=== PATIENT | female | born 1970 | race Caucasian/White ===

== ENCOUNTER 2016-08-29 17:57 | Inpatient (IN) | payer OTHER ==
[~2016-08-29] VITALS: Ht 157.5 cm; Wt 74.4 kg
[~2016-08-29 17:57] MED LIST: ALBU1AER INH; BACT800T5 PO; CHOL4 PO; DILA8TAB4 PO; ESOM1CAP6 PO; FAMO20TA2 PO; IPRAAER IN; LORA1TAB PO; METH10TA PO; MILKSUS5 PO; PROT40TA PO; ZOFR8TAB PO; [UNRECOGNIZED DRUG - CODE] PO
[2016-08-29 18:06] VITALS: BP 98/57; PULSE 82; RESP 16; TEMP 98.3; O2SAT 91
[2016-08-29 22:00] VITALS: BP 103/59; PULSE 56; RESP 14; O2SAT 94
[2016-08-29] MEDS ORDERED: SODIUM CHLOR 0.9% 1000 ML INJ 1,000 ML IV ONE (22:15)
--- NOTE | 2016-08-29 22:25 | PD ---
HPI Chief Complaint: Equipment Specialist Problem Time Seen by Provider: 22:02 Travel History International Travel<30 days: No Contact w/Intl Traveler<30days: No Traveled to known affect area: No History of Present Illness HPI The patient is a 46 year old female who presents to the [facility] emergency department with a history of reportedly having an infection of her GJ tube site that was first noted 2 weeks ago when the tube dislodged. She reports that she was treated with a 7 day course of Bactrim. She reports that she was told by hospice that it was up to her whether she had the feeding tube replaced. She reports that she was not sure what to do. She reports that now she has also been discharged from [facility] yesterday. The patient's pertinent past medical history is significant for severe gastroparesis with daily nausea vomiting, difficulty swallowing possibly related to her history of multiple sclerosis, history of cerebral palsy and spina bifida. The patient incidentally reports that she has had mild cough and congestion over the last 3- 4 days. She reports that she is able to tolerate some foods orally. She reports that she has mainly been getting her nutrition from drinking ensure shakes. The patient reports that at her baseline she usually vomits 3 times per day. She reports that today she has vomited twice. She reports that she last moved her bowels earlier today. She denies having any blood in her stool or black or tarry stools. She reports that the area of redness and pain around her previous GJ tube site has increased in size since completing her course of Bactrim approximately 4 days ago. Otherwise on review of systems, she denies any recent fevers, neck pain, chest pain, shortness of breath, diarrhea, urinary symptoms, or new neurologic symptoms. [facility] Past Medical History Narrative Medical The patient's past medical history is significant for multiple sclerosis, lupus , cerebral palsy, spina bifida, gastroparesis, history of bowel perforation, history of chronic pain, history of asthma/COPD, history of daily continued tobacco use of a half a pack per day, history of pancreatitis. The patient reports that she is currently residing with her sister. Asthma: Yes Autoimmune Disease: Yes (MS, Lupus ) COPD: Yes Gastrointestinal Disorders: Yes (Gastroparesis with G/J tube placement ) Respiratory: Yes (ASTHMA, COPD) Pancreatitis: Yes ?: Not LMP: 07/30/16 : 4 Para: 4 Miscarriage: 0 Tubal Ligation: Yes Past Surgical History Narrative Surgical The patient's past surgical history is significant for a J-tube placement. The patient has a history of laparotomy related to bowel perforation. Abdominal Surgery: Yes (GASTRIC TUBE) Genitourinary Surgery: Yes (G/J tube) Other Surgery: Yes (Lap [place]ie; ) Social History Alcohol Use: No Tobacco Use: Yes Substance Use: Yes (Occ. THC) Allergies-Medications (Allergen,Severity, Reaction): Coded Allergies: Cefazolin (Verified Allergy, Severe, RASH, 08/29/16) Cipro (Verified Allergy, Severe, PANCREATITIS, 08/29/16) Interferon Beta 1a (Verified Allergy, Severe, ANAPHALACTIC, 08/29/16) Interferons (Verified Allergy, Severe, ANAPHALACTIC, 08/29/16) Latex (Verified Allergy, Severe, ANAPHALACTIC, 08/29/16) Nonsteroidal Anti-Inflammatory Agts (Verified Allergy, Severe, GI, 08/29/16 ) Penicillin (Verified Allergy, Severe, ANAPHALACTIC, 08/29/16) Theophylline (Verified Allergy, Severe, TACHYCARDIA, 08/29/16) Ultracet (Verified Allergy, Severe, GI, 08/29/16) Aspirin (Verified Allergy, Intermediate, RASH, 08/29/16) Gabapentin (Verified Allergy, Intermediate, HIVES, 08/29/16) Seafood (Verified Allergy, Intermediate, RASH, 08/29/16) Tramadol/Acetaminophen (Verified Allergy, Intermediate, LIVER ISSUE, ) Tylenol (Verified Allergy, Intermediate, LIVER, 08/29/16) Uncoded Allergies: COPAXONE (Allergy, Severe, ANAPHALACTIC, 07/26/15) Reported Meds & Prescriptions Reported Meds & Active Scripts Active Active Prescriptions or Reported Medications Unobtainable Review of Systems Except as stated in HPI: all other systems reviewed are Neg General / Constitutional: Positive: Chills, No: Fever Eyes: No: Visual changes HENT: No: Headaches Cardiovascular: No: Chest Pain or Discomfort Respiratory: Positive: Cough, No: Shortness of Breath Gastrointestinal: Positive: Nausea, Vomiting, Abdominal Pain, No: Changes in Bowel Habits, Indigestion, Loss of Appetite Genitourinary: No: Dysuria Musculoskeletal: No: Pain Skin: Positive Rash Neurologic: No: Weakness, Focal Abnormalities, Change in Mentation, Slurred Speech, Sensory Disturbance Psychiatric: No: Depression Endocrine: No: Polydipsia Hematologic/Lymphatic: No: Easy Bruising Physical Exam Narrative General: The patient is a well-developed well-nourished female in no acute distress. Head and Neck exam: Head is normocephalic atraumatic. Eyes: EOMI, pupils are equal round and reactive to light. Nose: Midline septum with pink mucous membranes Mouth: Dentition unremarkable. Moist mucus membranes. Posterior oropharynx is not erythematous. No tonsillar hypertrophy. Uvula midline. Airway patent. Neck: No palpable lymphadenopathy. No nuchal rigidity. No thyromegaly. Cardiovascular: Sinus bradycardia in the 50s without murmurs, gallops, or rubs. Lungs: Decreased breath sounds in bilateral bases, no wheezes, rhonchi, or crackles are audible. Abdomen: Soft, with tenderness on palpation are reportedly along the right and left upper quadrant of the abdomen. The patient has a stoma in the left upper quadrant consistent with her GJ tube that was previously in place. Surrounding this site is erythema, warmth, tenderness on palpation and edema. There is no fluctuance or crepitus. No guarding, rebound, or rigidity. Negative [place] sign. No tenderness on palpation of McBurney's point. Extremities: No clubbing, cyanosis, or edema. 2+ pulses in all 4 extremities. No calf tenderness on palpation. Back: No costovertebral angle tenderness to palpation. Neurologic Exam: Grossly nonfocal Skin Exam: No other rashes noted abdifatah noted. Data Data Last Documented VS Vital Signs Date Time Temp Pulse Resp B/P Pulse Ox O2 Delivery O2 Flow Rate FiO2 08/30/16 01:00 66 15 95 Room Air 08/30/16 00:00 108/56 08/29/16 18:06 98.3 Orders Electrocardiogram (08/29/16 22:05) Complete Blood Count With Diff (08/29/16 22:05) Comprehensive Metabolic Panel (08/29/16 22:05) Creatine Kinase (Cpk) (08/29/16 22:05) Ckmb (Isoenzyme) Profile (08/29/16 22:05) Troponin I (08/29/16 22:05) Prothrombin Time / Inr (Pt) (08/29/16 22:05) Act Partial Throm Time (Ptt) (08/29/16 22:05) Blood Culture (08/29/16 22:05) C-Reactive Protein (Crp) (08/29/16 22:05) Lipase (08/29/16 22:05) Urinalysis - C+S If Indicated (08/29/16 22:05) Magnesium (Mg) (08/29/16 22:05) Chest, Single Ap (08/29/16 22:05) Iv Access Insert/Monitor (08/29/16 22:05) Ecg Monitoring (08/29/16 22:05) Oximetry (08/29/16 22:05) Ed Urine Pregnancytest Poc (08/29/16 22:05) Lactic Acid Sepsis Protocol (08/29/16 22:05) Sodium Chlor 0.9% 1000 Ml Inj (Ns 1000 M (08/29/16 22:15) Vancomycin Inj (Vancomycin Inj) (08/29/16 23:23) Aztreonam Inj (Azactam Inj) (08/29/16 23:23) Metronidazole 500 Mg Inj (Flagyl 500 Mg (08/29/16 23:23) Sodium Chlorid 0.9% 500 Ml Inj (Ns 500 M (08/29/16 23:30) Ondansetron Inj (Zofran Inj) (08/29/16 23:30) Ct Abd/Pel W Iv Contrast(Rout) (08/30/16 ) Iohexol 350 Inj (Omnipaque 350 Inj) (08/30/16 00:31) Admit Order (Ed Use Only) (08/30/16 01:18) Labs Laboratory Tests Test 08/29/16 22:54 White Blood Count 7.5 TH/MM3 Red Blood Count 5.31 MIL/MM3 Hemoglobin 16.3 GM/DL Hematocrit 46.9 % Mean Corpuscular Volume 88.3 FL Mean Corpuscular Hemoglobin 30.7 PG Mean Corpuscular Hemoglobin 34.8 % Concent Red Cell Distribution Width 13.6 % Platelet Count 230 TH/MM3 Mean Platelet Volume 9.1 FL Neutrophils (%) (Auto) 47.8 % Lymphocytes (%) (Auto) 37.4 % Monocytes (%) (Auto) 6.4 % Eosinophils (%) (Auto) 7.3 % Basophils (%) (Auto) 1.1 % Neutrophils # (Auto) 3.6 TH/MM3 Lymphocytes # (Auto) 2.8 TH/MM3 Monocytes # (Auto) 0.5 TH/MM3 Eosinophils # (Auto) 0.5 TH/MM3 Basophils # (Auto) 0.1 TH/MM3 CBC Comment DIFF FINAL Differential Comment Prothrombin Time 10.3 SEC Prothromb Time International 0.9 RATIO Ratio Activated Partial 30.1 SEC Thromboplast Time Sodium Level 142 MEQ/L Potassium Level 3.9 MEQ/L Chloride Level 104 MEQ/L Carbon Dioxide Level 28.7 MEQ/L Anion Gap 9 MEQ/L Blood Urea Nitrogen 12 MG/DL Creatinine 0.71 MG/DL Estimat Glomerular Filtration 89 ML/MIN Rate Random Glucose 87 MG/DL Lactic Acid Level 1.0 mmol/L Calcium Level 9.0 MG/DL Magnesium Level 2.1 MG/DL Total Bilirubin 0.2 MG/DL Aspartate Amino Transf 13 U/L (AST/SGOT) Alanine Aminotransferase 20 U/L (ALT/SGPT) Alkaline Phosphatase 115 U/L Total Creatine Kinase 47 U/L Troponin I LESS THAN 0.02 NG/ML C-Reactive Protein 1.23 MG/DL Total Protein 7.4 GM/DL Albumin 3.5 GM/DL Lipase 93 U/L MDM Medical Decision Making Medical Screen Exam Complete: Yes Emergency Medical Condition: Yes Interpretation(s) Last Impressions Abdomen/Pelvis CT 08/30/16 0000 Signed Impressions: Service Date/Time: Tuesday, August 30, 2016 00:28 - CONCLUSION: 1. Status post cholecystectomy. 2. No acute abdominal/pelvic pathology. 3. Nonspecific soft tissue changes in the midline anterior abdominal wall at the level of the previous feeding tube site. No loculated fluid collections. 4. Midline anterior abdominal wall hernia containing mesenteric fat. Ghassan Calderon MD Chest X-Ray 08/29/16 2204 Signed Impressions: Service Date/Time: Monday, August 29, 2016 22:27 - CONCLUSION: No acute disease. Good Dockery MD Differential Diagnosis Cellulitis, versus yeast dermatitis, versus sepsis related to failure of outpatient treatment of cellulitis, versus dehydration, versus electrolyte arrangements Narrative Course During the course of the patients emergency department visit, the patients history, examination, and differential diagnosis were reviewed with the patient. The patient had IV access obtained and blood work sent for analysis. The patient was placed on a chicken sexer with oximetry and blood pressure monitoring. An ECG was done on arrival. The patient's ECG reveals a sinus bradycardia with a sinus arrhythmia, heart rate of 48, QRS duration is 105 ms, QTc is 406 ms, no acute ST segment elevation or depression, T waves are inverted in V1. The patient was initially provided broad-spectrum antibiotic coverage for suspected sepsis related to failure of outpatient treatment of cellulitis involving the abdomen. The patient was given Azactam, vancomycin, and Flagyl. The patient was also started on normal saline 1 L IV fluid bolus which was repeated with a 500 mL bolus 1. The patient was given Zofran 4 mg IV for nausea. The patients laboratory studies were reviewed and remarkable for a white count of 7.5, hemoglobin 16.3, platelets 230 was 7.3 eosinophil. CMP is remarkable for an AST of 13, CPK 47, troponin I less than 0.02, C-reactive protein 1.23, lipase 93, PT PTT within normal limits. Lactic acid is 1.0, PT 10.3, PTT 30.1 Radiology studies were reviewed and remarkable for a chest x-ray that shows no acute cardiopulmonary disease. CT scan of the abdomen and pelvis shows status post cholecystectomy, no acute abdominal/pelvic pathology, nonspecific tissue changes in the midline anterior abdominal wall at the level of the previous feeding tube site. No loculated fluid collections. Midline anterior abdominal wall hernia containing mesenteric fat. The patients results were discussed with the patient, including the plan of care. I explained that further testing and/ or monitoring is indicated based on the patients history, examination, and/ or laboratory findings. Therefore, I recommended admission for additional evaluation. The patient expressed understanding and was agreeable with this plan. The patient was admitted to the hospital in stable condition and sent to a bed under the care of the [facility]. Physician Communication Physician Communication The patient's case was discussed with Dr. Nelson who did agree to admit the patient for further evaluation and treatment at this time. Diagnosis Primary Impression: Cellulitis Qualified Code: L03.818 - Cellulitis of other specified site Additional Impression: Failure of outpatient treatment Admitting Information Admitting Physician Requests: Admit Scripts Unable to Obtain Active Prescriptions or Reported Meds Radha Blackwell MD Aug 29, 2016 22:25
--- NOTE | 2016-08-29 22:41 | RADRPT ---
EXAM DATE/TIME: 08/29/2016 22:27 [facility] COMPARISON: No previous studies available for comparison. INDICATIONS : Chest pain. Cough. MEDICAL HISTORY : Pancreatitis. Lupus. SURGICAL HISTORY : None. ENCOUNTER: Initial ACUITY: 1 day PAIN SCORE: 7/10 LOCATION: Bilateral lower chest FINDINGS: A single view of the chest demonstrates the lungs to be symmetrically aerated without evidence of mas s, infiltrate or effusion. The cardiomediastinal contours are unremarkable. Osseous structures are intact. CONCLUSION: No acute disease. oGod Dockery MD on August 29, 2016 at 22:39 Board Certified Radiologist. This report was verified electronically.
[2016-08-29 22:59] VITALS: RESP 16; O2SAT 96
[2016-08-29 23:00] VITALS: BP 111/53; PULSE 58; RESP 15; O2SAT 97
[2016-08-29 23:18] LABS: AUTOMATED NEUTROPHIL # 3.6 TH/MM3 (1.8-7.7); BASOPHIL # 0.1 TH/MM3 (0-0.2); BASOPHIL % 1.1 % (0.0-2.0); EOSINOPHIL # 0.5 TH/MM3 (0-0.4); EOSINOPHIL % 7.3 % (0.0-4.0); HEMATOCRIT 46.9 % (35.0-46.0); HEMO FLAGS DIFF FINAL; LYMPH % 37.4 % (9.0-44.0); LYMPHOCYTE # 2.8 TH/MM3 (1.0-4.8); MEAN CELL VOLUME 88.3 FL (80.0-100.0); MEAN CORPUSCULAR HEMOGLOBIN 30.7 PG (27.0-34.0); MEAN CORPUSCULAR HGB CONC 34.8 % (32.0-36.0); MONO % 6.4 % (0.0-8.0); NEUT % 47.8 % (16.0-70.0); PLATELET COUNT 230 TH/MM3 (150-450); RED BLOOD COUNT 5.31 MIL/MM3 (4.00-5.30); RED CELL DISTRIBUTION WIDTH 13.6 % (11.6-17.2); WHITE BLOOD COUNT 7.5 TH/MM3 (4.0-11.0)
[2016-08-29] MEDS ORDERED: AZTREONAM INJ 2,000 MG in SODIUM CHLORIDE 0.9% INJ 100 ML IV STA (23:23)
[2016-08-29] MEDS ORDERED: VANCOMYCIN INJ 1,000 MG in SODIUM CHLOR 0.9% 250 ML INJ 250 ML IV STA (23:23)
[2016-08-29] MEDS ORDERED: metroNIDAZOLE 500 MG INJ 100 ML IV STA (23:23)
[2016-08-29] MEDS ORDERED: ONDANSETRON HCL 4 MG/2 ML VIAL IV PUSH ONE (23:30)
[2016-08-29] MEDS ORDERED: SODIUM CHLORID 0.9% 500 ML INJ 500 ML IV ONE (23:30)
[2016-08-29 23:36] LABS: ANION GAP 9 MEQ/L (5-15); BICARBONATE 28.7 MEQ/L (21.0-32.0); BLOOD UREA NITROGEN 12 MG/DL (7-18); CHLORIDE 104 MEQ/L (98-107); MAGNESIUM 2.1 MG/DL (1.5-2.5); POTASSIUM 3.9 MEQ/L (3.5-5.1); SODIUM (NA) 142 MEQ/L (136-145)
[2016-08-29 23:37] LABS: APTT (PATIENT) 30.1 SEC (24.3-30.1); INTERNATIONAL NORMALIZED RATIO 0.9 RATIO; PROTHROMBIN TIME - PATIENT 10.3 SEC (9.8-11.6)
[2016-08-29 23:39] LABS: ALKALINE PHOSPHATASE 115 U/L (45-117); ALT (GPT) 20 U/L (10-53); AST (GOT) 13 U/L (15-37); GLOMERULAR FILTRATION RATE 89 ML/MIN (>89); TOTAL BILIRUBIN ADULT 0.2 MG/DL (0.2-1.0)
[2016-08-29 23:50] LABS: CREATINE KINASE 47 U/L (26-192)
[2016-08-30] VITALS (8 sets, daily range): BP systolic 102–134; BP diastolic 56–72; PULSE 54–82; RESP 14–20; TEMP 97–97.8; O2SAT 94–97
[2016-08-30] MEDS ORDERED: IOHEXOL 350 MG/ML 10 ML VIAL (for RAD DIAG) IV ONE (00:31)
--- NOTE | 2016-08-30 00:49 | RADRPT ---
EXAM DATE/TIME: 08/30/2016 00:28 [facility] COMPARISON: No previous studies available for comparison. INDICATIONS : Pain and swelling at feeding tube site. IV CONTRAST: 88 cc Omnipaque 350 (iohexol) IV ORAL CONTRAST: Prescribed oral contrast ingested. RADIATION DOSE: 12.38 CTDIvol (mGy) MEDICAL HISTORY : Chronic obstructive pulmonary disease. Pancreatitis. Lupus. SURGICAL HISTORY : Tubal ligation. Gastric tube. ENCOUNTER: Initial ACUITY: 1 day PAIN SCALE: 7/10 LOCATION: Abdomen TECHNIQUE: Volumetric scanning of the abdomen and pelvis was performed. Using automated exposure control and ad justment of the mA and/or kV according to patient size, radiation dose was kept as low as reasonably achievable to obtain optimal diagnostic quality images. DICOM format image data is available electro nically for review and comparison. FINDINGS: LOWER LUNGS: The visualized lower lungs are clear. LIVER: Homogeneous density without lesion. There is no dilation of the biliary tree. No gallbladder, surgic ally removed.. SPLEEN: Normal size without lesion. PANCREAS: Within normal limits. KIDNEYS: Normal in size and shape. There is no mass, stone or hydronephrosis. ADRENAL GLANDS: Within normal limits. VASCULAR: There is no aortic aneurysm. BOWEL/MESENTERY: The stomach, small bowel, and colon demonstrate no acute abnormality. There is no free intraperitone al air or fluid. The appendix is unremarkable. There is stool throughout the colon. No inflammatory c hanges are demonstrated. Evidence of previous abdominal surgery. ABDOMINAL WALL: There appears to be midline anterior abdominal wall hernia in the upper abdomen containing mesenteric fat. There is nonspecific soft tissue changes in the anterior abdominal wall most likely related to feeding tube site. No focal or loculated fluid collections are seen in the abdominal wall. RETROPERITONEUM: There is no lymphadenopathy. BLADDER: No wall thickening or mass. REPRODUCTIVE: Within normal limits. INGUINAL: There is no lymphadenopathy or hernia. MUSCULOSKELETAL: Within normal limits for patient age. CONCLUSION: 1. Status post cholecystectomy. 2. No acute abdominal/pelvic pathology. 3. Nonspecific soft tissue changes in the midline anterior abdominal wall at the level of the previou s feeding tube site. No loculated fluid collections. 4. Midline anterior abdominal wall hernia containing mesenteric fat. Ghassan Calderon MD on August 30, 2016 at 0:41 Board Certified Radiologist. This report was verified electronically.
[2016-08-30] MEDS ORDERED: SODIUM CHLORIDE 0.9% FLUSH 10 ML FLUSH IV FLUSH PRN (01:45)
[2016-08-30] MEDS ORDERED: NALOXONE HCL 0.4 MG/ML AMP IV PRN (01:45)
[2016-08-30] MEDS ORDERED: Vancomycin Consult Pharmacy 1 EA OTHER SCH (01:45)
--- NOTE | 2016-08-30 08:53 | EKG ---
Date Performed: 08/29/2016 Time Performed: 23:11:31 PTAGE: 46 years EKG: SINUS BRADYCARDIA WITH SINUS ARRHYTHMIA BORDERLINE ECG NO PREVIOUS TRACING DOCTOR: Ray Patterson Interpretating Date/Time 08/30/2016 08:52:07
[2016-08-30] MEDS: SODIUM CHLORIDE 0.9% FLUSH 10 ML FLUSH IV FLUSH SCH ×2 (09:29→22:03)
--- NOTE | 2016-08-30 11:00 | HHI.HP ---
HPI Service [facility] Hospitalists Primary Care Physician Poncho Montero MD Admission Diagnosis Cellulitis failed outpatient management Diagnoses: Chief Complaint: Abdominal pain Infected G/J tube site Bilateral hip pain Travel History International Travel<30 Days: No Contact w/Intl Traveler <30 Da: No Traveled to Known Affected Are: No History of Present Illness Written by Tara Benson PA-C acting as scribe for Dr. Gonsalez on 08/30/16 at 10:41. This note was transcribed by scribe Tara Benson PA-C. I, Dr. Charlotte Gonsalez personally performed the history, physical exam, and medical decision making; and confirmed the accuracy of the information in the transcribed note. Authenticated by Dr. Charlotte Gonsalez on 08/30/16 at 10:41. This is a 46-year-old female with a past medical history of MS, lupus, cerebral palsy, spina bifida, severe gastroparesis status post G/J-tube placement, history of pancreatitis and history of bowel perforation who presents to [facility] ED with complaints of infection on her G/J-tube site ongoing for the past 2 weeks after the tube became dislodged. Patient states she was sent to the hospital by Dr. Montero. She completed a 7 day course of Bactrim 4 days ago. She was discharged from [facility] yesterday. At present, she is complaining of abdominal pain as well as bilateral hip pain. Patient states that she falls frequently at home and her last fall was a few days ago. She is able to ambulate some but primarily utilizes a wheelchair. She denies any fever or chills. She reports nausea. She denies any chest pain or shortness of breath. She reports that she is able to tolerate some foods orally as well as sips of water. She reports chronic daily nausea and vomiting as well as difficulty with swallowing. She follows with [facility]. She endorses normal bowel movements. She denies any black/bloody or tarry stools. She denies any urinary complaints. In the ED, CT scan of the abdomen and pelvis was obtained which was negative for any acute abdominal/pelvic pathology. There were some nonspecific soft tissue changes in the midline anterior abdominal wall the level of the previous feeding tube site but no loculated fluid collections were appreciated. She was also noted to have midline anterior abdominal wall hernia containing mesenteric fat. Review of Systems Except as stated in HPI: all other systems reviewed are Neg Past Family Social History Past Medical History MS Lupus History of cerebral palsy Spina bifida Severe gastroparesis status post G/J-tube placement Asthma COPD History of pancreatitis History of bowel perforation Past Surgical History G/J-tube placement Laparoscopic cholecystectomy Reported Medications Active Prescriptions or Reported Medications Unobtainable Allergies: Coded Allergies: Cefazolin (Verified Allergy, Severe, RASH, 08/29/16) Cipro (Verified Allergy, Severe, PANCREATITIS, 08/29/16) Interferon Beta 1a (Verified Allergy, Severe, ANAPHALACTIC, 08/29/16) Interferons (Verified Allergy, Severe, ANAPHALACTIC, 08/29/16) Latex (Verified Allergy, Severe, ANAPHALACTIC, 08/29/16) Nonsteroidal Anti-Inflammatory Agts (Verified Allergy, Severe, GI, 08/29/16 ) Penicillin (Verified Allergy, Severe, ANAPHALACTIC, 08/29/16) Theophylline (Verified Allergy, Severe, TACHYCARDIA, 08/29/16) Ultracet (Verified Allergy, Severe, GI, 08/29/16) Aspirin (Verified Allergy, Intermediate, RASH, 08/29/16) Gabapentin (Verified Allergy, Intermediate, HIVES, 08/29/16) Seafood (Verified Allergy, Intermediate, RASH, 08/29/16) Tramadol/Acetaminophen (Verified Allergy, Intermediate, LIVER ISSUE, ) Tylenol (Verified Allergy, Intermediate, LIVER, 08/29/16) Uncoded Allergies: COPAXONE (Allergy, Severe, ANAPHALACTIC, 07/26/15) Active Ordered Medications Current Medications Medications (Trade) Dose Ordered Sig/Yoly Route Start Time Stop Time Status Last Admin (NS Flush) 2 ml UNSCH PRN IV FLUSH 08/30/16 01:45 (NS Flush) 2 ml BID IV FLUSH 08/30/16 09:00 08/30/16 09:29 Naloxone HCl 0.4 mg 0.4 mg UNSCH PRN IV 08/30/16 01:45 Pharmacy Profile Note 0 ml @ 0 mls/hr UNSCH OTHER 08/30/16 01:45 (Azactam Inj/NS Inj) 100 ml @ 200 mls/hr Q12H IV 08/30/16 12:00 Oxycodone HCl 5 mg 5 mg Q8H PRN PO 08/30/16 04:30 08/30/16 04:51 (Vancomycin Inj/ NS 250 ml Inj) 262.5 ml @ 250 mls/hr Q12H IV 08/30/16 13:00 Miscellaneous Information SPECIFIC LAB TO BE DRAWN:VANCOMYCIN TROUGH DATE TO... ONCE ONCE .XX 08/31/16 12:45 08/31/16 12:46 (Pneumovax-23 Inj) 25 mcg ONCE ONCE IM 08/31/16 10:00 08/31/16 10:01 Family History Sister, brain tumor Social History She endorses history of tobacco use half pack per day since the age of 24. Patient denies any alcohol consumption. Patient reports marijuana use. Physical Exam Vital Signs Vital Signs Date Time Temp Pulse Resp B/P Pulse Ox O2 Delivery O2 Flow Rate FiO2 08/30/16 08:00 97.7 54 18 102/63 95 08/30/16 06:00 16 08/30/16 04:00 97.6 82 18 112/66 95 08/30/16 03:28 64 14 118/72 100 08/30/16 01:00 66 15 95 Room Air 08/30/16 00:00 64 14 108/56 96 Room Air 08/29/16 23:00 58 15 111/53 97 Room Air 08/29/16 22:59 16 96 Room Air 08/29/16 22:00 56 14 103/59 94 Room Air 08/29/16 21:50 Room Air 08/29/16 18:06 98.3 82 16 98/57 91 Room Air Physical Exam GENERAL: This is a well-nourished, well-developed patient, in no apparent distress. Awake and alert. SKIN: (+) Scattered slightly erythematous macular rash on bilateral upper extremities. Cool and dry. HEAD: Atraumatic. Normocephalic. No temporal or scalp tenderness. EYES: Pupils equal round and reactive. Extraocular motions intact. No scleral icterus. No injection or drainage. ENT: Nose without bleeding or purulent drainage.Throat without erythema, tonsillar hypertrophy or exudate. Uvula midline. Airway patent. NECK: Trachea midline. No lymphadenopathy. Supple, nontender, no meningeal signs. CARDIOVASCULAR: Regular rate and rhythm without murmurs, gallops, or rubs. RESPIRATORY: Clear to auscultation. Breath sounds equal bilaterally. No wheezes , rales, or rhonchi. GASTROINTESTINAL: Abdomen soft, nondistended. (+)tenderness to palpation RUQ. No hepato-splenomegaly, or palpable masses. No guarding. (+) Erythema surrounding the previous G/J-tube site. No purulence appreciated. MUSCULOSKELETAL: Extremities without clubbing, cyanosis, or edema. No joint tenderness, effusion, or edema noted. No calf tenderness. NEUROLOGICAL: Awake and alert. Grossly nonfocal. Normal speech. Laboratory Laboratory Tests Test 08/29/16 22:54 White Blood Count 7.5 Red Blood Count 5.31 Hemoglobin 16.3 Hematocrit 46.9 Mean Corpuscular Volume 88.3 Mean Corpuscular Hemoglobin 30.7 Mean Corpuscular Hemoglobin 34.8 Concent Red Cell Distribution Width 13.6 Platelet Count 230 Mean Platelet Volume 9.1 Neutrophils (%) (Auto) 47.8 Lymphocytes (%) (Auto) 37.4 Monocytes (%) (Auto) 6.4 Eosinophils (%) (Auto) 7.3 Basophils (%) (Auto) 1.1 Neutrophils # (Auto) 3.6 Lymphocytes # (Auto) 2.8 Monocytes # (Auto) 0.5 Eosinophils # (Auto) 0.5 Basophils # (Auto) 0.1 CBC Comment DIFF FINAL Differential Comment Prothrombin Time 10.3 Prothromb Time International 0.9 Ratio Activated Partial 30.1 Thromboplast Time Sodium Level 142 Potassium Level 3.9 Chloride Level 104 Carbon Dioxide Level 28.7 Anion Gap 9 Blood Urea Nitrogen 12 Creatinine 0.71 Estimat Glomerular Filtration 89 Rate Random Glucose 87 Lactic Acid Level 1.0 Calcium Level 9.0 Magnesium Level 2.1 Total Bilirubin 0.2 Aspartate Amino Transf 13 (AST/SGOT) Alanine Aminotransferase 20 (ALT/SGPT) Alkaline Phosphatase 115 Total Creatine Kinase 47 Troponin I LESS THAN 0.02 C-Reactive Protein 1.23 Total Protein 7.4 Albumin 3.5 Lipase 93 Date/Time Procedure Status Source Growth 08/29/16 23:05 Aerobic Blood Culture Received Blood Peripheral Pending 08/29/16 23:05 Anaerobic Blood Culture Received Blood Peripheral Pending Result Diagram: 08/29/16 2254 08/29/16 2254 Imaging Last Impressions Abdomen/Pelvis CT 08/30/16 0000 Signed Impressions: Service Date/Time: Tuesday, August 30, 2016 00:28 - CONCLUSION: 1. Status post cholecystectomy. 2. No acute abdominal/pelvic pathology. 3. Nonspecific soft tissue changes in the midline anterior abdominal wall at the level of the previous feeding tube site. No loculated fluid collections. 4. Midline anterior abdominal wall hernia containing mesenteric fat. Ghassan Calderon MD Chest X-Ray 08/29/162204 Signed Impressions: Service Date/Time: Monday, August 29, 2016 22:27 - CONCLUSION: No acute disease. Good Dockery MD Assessment and Plan Assessment and Plan 46-year-old female with a past medical history of MS, lupus, cerebral palsy, spina bifida, severe gastroparesis status post G/J-tube placement, history of pancreatitis and history of bowel perforation who presents to [facility] ED with complaints of infection on her G/J-tube site ongoing for the past 2 weeks after the tube became dislodged. Abdominal cellulitis around previous G/J-tube site - Patient is afebrile. White count is normal. CRP 1.23 - Continue patient on IV antibiotics consisting of Vancomycin and Azactam - Pain management - Follow up on blood culture results Severe gastroparesis with chronic nausea/vomiting and odynophagia Status post previous G/J-tube placement that has since become dislodged - Consult GI - Zofran when necessary nausea/vomiting - Patient emphatically she is unable to tolerate NG tube - Will order speech therapy swallow evaluation Bilateral hip pain Recurrent falls Past medical history significant for MS and spina bifida - X-rays bilateral hips for evaluation of acute fracture or other osseous abnormality - PT eval/treatment Asthma COPD Ongoing tobaccoism - Discussed smoking cessation/counseling - DuoNeb's when necessary DVT prophylaxis - Heparin sq Will resume home medications to treat patients other stable comorbidities including MS, Lupus, COPD and chronic gastroparesis once medication reconciliation completed. Discussed Condition With Patient Physician Certification 2 Midnight Certification Type: Admission for Inpatient Services Order for Inpatient Services The services are ordered in accordance with Medicare regulations or non- Medicare payer requirements, as applicable. In the case of services not specified as inpatient-only, they are appropriately provided as inpatient services in accordance with the 2-midnight benchmark. Estimated LOS (days): 3 days is the estimated time the patient will need to remain in the hospital, assuming treatment plan goals are met and no additional complications. Post-Hospital Plan: Home Tara Benson Aug 30, 2016 11:00 Charlotte Gonsalez MD Aug 30, 2016 12:18
[2016-08-30] MEDS: AZTREONAM INJ 2,000 MG in SODIUM CHLORIDE 0.9% INJ 100 ML IV SCH (12:54)
--- NOTE | 2016-08-30 14:32 | RADRPT ---
EXAM DATE/TIME: 08/30/2016 13:41 [place] COMPARISON: No previous studies available for comparison. INDICATIONS : Bilateral hip pain due to frequent falls. MEDICAL HISTORY : Chronic obstructive pulmonary disease. Pancreatitis. Lupus. SURGICAL HISTORY : Tubal ligation. Gastric tube. ENCOUNTER: Initial ACUITY: 3 days PAIN SCORE: 9/10 LOCATION: Bilateral hips FINDINGS: A frontal view of the pelvis and lateral views of both hips were performed. The primary and secondar y trabecular pattern of the femoral necks is intact. The hip joints are of normal width without sign ificant sclerosis or bony hypertrophy. The bony pelvic ring is grossly intact. CONCLUSION: Unremarkable bilateral hips. Uli Goodman MD on August 30, 2016 at 14:29 Board Certified Radiologist. This report was verified electronically.
[2016-08-30] MEDS: VANCOMYCIN INJ 1,250 MG in SODIUM CHLOR 0.9% 250 ML INJ 250 ML IV SCH (14:38)
[2016-08-30] MEDS: HEPARIN SODIUM - SQ 10,000 UNITS/ML VIAL SQ SCH ×2 (14:38→22:03)
[2016-08-30] MEDS ORDERED: HYDROmorphone HCL PF 1 MG/ML VIAL IV PUSH ONE (16:00)
[2016-08-30] MEDS: HYDROmorphone HCL PF 1 MG/ML VIAL IV PUSH PRN (22:03)
[2016-08-31] VITALS: BP 116/72; PULSE 60; RESP 16; TEMP 96.8; O2SAT 95
[2016-08-31] MEDS: AZTREONAM INJ 2,000 MG in SODIUM CHLORIDE 0.9% INJ 100 ML IV SCH ×2 (00:35→11:09)
[2016-08-31] MEDS: VANCOMYCIN INJ 1,250 MG in SODIUM CHLOR 0.9% 250 ML INJ 250 ML IV SCH ×2 (00:35→14:56)
[2016-08-31 04:00] VITALS: BP 123/67; PULSE 61; RESP 16; TEMP 97.4; O2SAT 95
[2016-08-31] MEDS: ONDANSETRON HCL 4 MG/2 ML VIAL IV PUSH PRN ×2 (05:01→15:10)
[2016-08-31] MEDS: HEPARIN SODIUM - SQ 10,000 UNITS/ML VIAL SQ SCH ×3 (05:23→19:58)
[2016-08-31 08:30] VITALS: BP 130/71; PULSE 59; RESP 16; TEMP 96.4; O2SAT 97
[2016-08-31] MEDS: SODIUM CHLORIDE 0.9% FLUSH 10 ML FLUSH IV FLUSH SCH ×2 (08:40→20:42)
[2016-08-31 08:48] LABS: BICARBONATE 21.1 MEQ/L (21.0-32.0); POTASSIUM 3.7 MEQ/L (3.5-5.1)
[2016-08-31 09:06] LABS: AUTOMATED NEUTROPHIL # 3.1 TH/MM3 (1.8-7.7); BASOPHIL # 0.1 TH/MM3 (0-0.2); BASOPHIL % 1.2 % (0.0-2.0); EOSINOPHIL # 0.1 TH/MM3 (0-0.4); EOSINOPHIL % 2.3 % (0.0-4.0); HEMATOCRIT 45.5 % (35.0-46.0); HEMO FLAGS DIFF FINAL; LYMPH % 31.5 % (9.0-44.0); LYMPHOCYTE # 1.6 TH/MM3 (1.0-4.8); MEAN CELL VOLUME 87.3 FL (80.0-100.0); MEAN CORPUSCULAR HEMOGLOBIN 29.7 PG (27.0-34.0); MONO % 4.5 % (0.0-8.0); NEUT % 60.5 % (16.0-70.0); PLATELET COUNT 207 TH/MM3 (150-450); RED BLOOD COUNT 5.22 MIL/MM3 (4.00-5.30); RED CELL DISTRIBUTION WIDTH 13.4 % (11.6-17.2); WHITE BLOOD COUNT 5.2 TH/MM3 (4.0-11.0)
[2016-08-31] MEDS ORDERED: PNEUMOCOCCAL POLYVALENT INJ 25 MCG/0.5 ML SYR IM ONE (10:00)
[2016-08-31] MEDS ORDERED: INFLUENZA VIRUS VACCINE (QUADRIVALENT) 0.5 ML SYR IM ONE (10:00)
--- NOTE | 2016-08-31 10:18 | HHI.PR ---
Subjective Remarks Says she is feeling sad she wants to go home and be with her dog. She is still with abdominal pain. No n/v. Says she did vomiting once last night. No fever or chills. no chest pain or sob. Objective Vitals Vital Signs Date Time Temp Pulse Resp B/P Pulse Ox O2 Delivery O2 Flow Rate FiO2 08/31/16 08:30 96.4 59 16 130/71 97 08/31/16 04:00 97.4 61 16 123/67 95 08/31/16 01:57 16 08/31/16 00:00 96.8 60 16 116/72 95 08/30/16 23:21 16 08/30/16 20:00 97.0 82 18 134/67 94 08/30/16 16:00 97.8 58 18 108/59 97 08/30/16 12:00 97.2 74 20 114/58 97 I/O 08/30/16 08/30/16 08/30/16 08/31/16 08/31/16 08/31/16 07:00 15:00 23:00 07:00 15:00 23:00 Intake Total 2700 ml Balance 2700 ml Intake Oral 600 ml IV Total 2100 ml # Voids 0 4 2 Result Diagram: 08/31/16 0713 08/31/16 0713 Imaging Last Impressions Hip and Pelvis X-Ray 08/30/16 0000 Signed Impressions: Service Date/Time: Tuesday, August 30, 2016 13:41 - CONCLUSION: Unremarkable bilateral hips. Uli Goodman MD Abdomen/Pelvis CT 08/30/16 0000 Signed Impressions: Service Date/Time: Tuesday, August 30, 2016 00:28 - CONCLUSION: 1. Status post cholecystectomy. 2. No acute abdominal/pelvic pathology. 3. Nonspecific soft tissue changes in the midline anterior abdominal wall at the level of the previous feeding tube site. No loculated fluid collections. 4. Midline anterior abdominal wall hernia containing mesenteric fat. Ghassan Calderon MD Chest X-Ray 08/29/162204 Signed Impressions: Service Date/Time: Monday, August 29, 2016 22:27 - CONCLUSION: No acute disease. Good Dockery MD Objective Remarks GENERAL: This is a well-nourished, well-developed patient, in no apparent distress. Awake and alert. SKIN: (+) Scattered slightly erythematous macular rash on bilateral upper extremities. Cool and dry. CARDIOVASCULAR: Regular rate and rhythm without murmurs, gallops, or rubs. RESPIRATORY: Clear to auscultation. Breath sounds equal bilaterally. No wheezes , rales, or rhonchi. GASTROINTESTINAL: Abdomen soft, nondistended. (+)tenderness to palpation RUQ. No hepato-splenomegaly, or palpable masses. No guarding. (+) Erythema surrounding the previous G/J-tube site. No purulence appreciated. MUSCULOSKELETAL: Extremities without clubbing, cyanosis, or edema. No joint tenderness, effusion, or edema noted. No calf tenderness. NEUROLOGICAL: Awake and alert. Grossly nonfocal. Normal speech. A/P Assessment and Plan 46-year-old female with a past medical history of MS, lupus, cerebral palsy, spina bifida, severe gastroparesis status post G/J-tube placement, history of pancreatitis and history of bowel perforation who presents to [facility] ED with complaints of infection on her G/J-tube site ongoing for the past 2 weeks after the tube became dislodged. Abdominal cellulitis around previous G/J-tube site. G/J tube was removed. Patient is on antibiotics. CT abd doesn't show any abscess. Consult IR for evaluation of placement of GJ tube - Patient is afebrile. White count is normal. CRP 1.23 - Continue patient on IV antibiotics consisting of Vancomycin and Azactam - Pain management - Follow up on blood culture results Severe gastroparesis with chronic nausea/vomiting and odynophagia Status post previous G/J-tube placement that has since become dislodged. Patient also complaints of abdominal pain . currently on dilaudid - Consult GI, discussed with Dr Whyte recommends IR for GJ tube placmenet. CT scan abd doesn't show any abscess - Zofran when necessary nausea/vomiting - Patient emphatically she is unable to tolerate NG tube - Will order speech therapy swallow evaluation Bilateral hip pain Recurrent falls Past medical history significant for MS and spina bifida - X-rays bilateral hips reviewed and negative - PT eval/treatment Asthma COPD Ongoing tobaccoism - Discussed smoking cessation/counseling - DuoNeb's when necessary DVT prophylaxis - Heparin sq Resume home medications to treat patients other stable comorbidities including MS, Lupus, COPD and chronic gastroparesis once medication reconciliation completed. Discussed Condition With Patient, nurse, GI specialist Charlotte Gonsalez MD Aug 31, 2016 10:18
[2016-08-31] MEDS: HYDROmorphone HCL PF 1 MG/ML VIAL IV PUSH PRN ×3 (11:10→20:42)
[2016-08-31 12:00] VITALS: BP 109/57; PULSE 64; RESP 16; TEMP 96.7; O2SAT 95
[2016-08-31] MEDS ORDERED: PHARMACY ORDERED LAB ONE (12:45)
[2016-08-31 16:00] VITALS: BP_SYST 100; BP_SYST 65; BP_DIAS 65; PULSE 61; RESP 16; TEMP 97.6; O2SAT 94
--- NOTE | 2016-08-31 16:33 | PD.CONS ---
HPI History of Present Illness This is a 46 year old female with hx gastroparesis, dysphagia, lupus, cholecystectomy, cerebral palsy, spina bifida, pancreatitis, bowel perforation who presented with abd pain, n/v, and displaced GJ tube. Her abdominal pain is mid abdomen and started about 2 weeks ago, at the time her GJ came out. She says it is sharp and crampy and radiates to her back. She has also bee nauseous with non bloody vomiting and has not eaten much in 2 weeks. She has recently started to have loose diarrhea. She says she intermittenly has n/v and when she has severe n/v her tube comes out; the GJ has been replaced multiple times. She thinks she had EGD last year in [place] and HH is only finding she recalls, she had colonoscopy years ago and finding was diverticulosis, can offer no further details. Denies blood in emesis, in stool, black tarry stools. She says she was recently d/c from hospice. She has gastroparesis and says she has tried many medications including bethanechol, EES, reglan and they do not help. She has had EGD w/ botox and that did not help. She does not want a gastric pacemaker b/c of her spinal issues and she doesn't want to go to [place]. Says she has persistent intermittent n/v even with GJ to suction. PFSH Past Medical History MS Lupus History of cerebral palsy Spina bifida Severe gastroparesis status post G/J-tube placement Asthma COPD History of pancreatitis History of bowel perforation Past Surgical History G/J-tube placement Laparoscopic cholecystectomy repair intestinal perforation Coded Allergies: Cefazolin (Verified Allergy, Severe, RASH, 08/29/16) Cipro (Verified Allergy, Severe, PANCREATITIS, 08/29/16) Interferon Beta 1a (Verified Allergy, Severe, ANAPHALACTIC, 08/29/16) Interferons (Verified Allergy, Severe, ANAPHALACTIC, 08/29/16) Latex (Verified Allergy, Severe, ANAPHALACTIC, 08/29/16) Nonsteroidal Anti-Inflammatory Agts (Verified Allergy, Severe, GI, 08/29/16 ) Penicillin (Verified Allergy, Severe, ANAPHALACTIC, 08/29/16) Theophylline (Verified Allergy, Severe, TACHYCARDIA, 08/29/16) Ultracet (Verified Allergy, Severe, GI, 08/29/16) Aspirin (Verified Allergy, Intermediate, RASH, 08/29/16) Gabapentin (Verified Allergy, Intermediate, HIVES, 08/29/16) Seafood (Verified Allergy, Intermediate, RASH, 08/29/16) Tramadol/Acetaminophen (Verified Allergy, Intermediate, LIVER ISSUE, ) Tylenol (Verified Allergy, Intermediate, LIVER, 08/29/16) Uncoded Allergies: COPAXONE (Allergy, Severe, ANAPHALACTIC, 07/26/15) Family History Sister, brain tumor Social History She endorses history of tobacco use half pack per day since the age of 24. Patient denies any alcohol consumption. Patient reports marijuana use. Review of Systems Constitutional: DENIES: Fever Eyes: DENIES: Blurred vision Ears, nose, mouth, throat: DENIES: Hearing loss Respiratory: DENIES: Hemoptysis Cardiovascular: DENIES: Chest pain Gastrointestinal: COMPLAINS OF: Abdominal pain, Diarrhea, Nausea, Vomiting, DENIES: Black stools, Bloody stools, Constipation, Hematemesis Genitourinary: DENIES: Hematuria Musculoskeletal: DENIES: Joint Swelling Integumentary: DENIES: Rash Neurologic: DENIES: Headache Psychiatric: DENIES: Confusion GI Exam Vitals I&O Vital Signs Date Time Temp Pulse Resp B/P Pulse Ox O2 Delivery O2 Flow Rate FiO2 08/31/16 12:00 96.7 64 16 109/57 95 08/31/16 08:30 96.4 59 16 130/71 97 08/31/16 04:00 97.4 61 16 123/67 95 08/31/16 01:57 16 08/31/16 00:00 96.8 60 16 116/72 95 08/30/16 23:21 16 08/30/16 20:00 97.0 82 18 134/67 94 I/O 08/30/16 08/30/16 08/30/16 08/31/16 08/31/16 08/31/16 07:00 15:00 23:00 07:00 15:00 23:00 Intake Total 2700 ml Balance 2700 ml Intake Oral 600 ml IV Total 2100 ml # Voids 0 4 2 Imaging Last Impressions Hip and Pelvis X-Ray 08/30/16 0000 Signed Impressions: Service Date/Time: Tuesday, August 30, 2016 13:41 - CONCLUSION: Unremarkable bilateral hips. Uli Goodman MD Abdomen/Pelvis CT 08/30/16 0000 Signed Impressions: Service Date/Time: Tuesday, August 30, 2016 00:28 - CONCLUSION: 1. Status post cholecystectomy. 2. No acute abdominal/pelvic pathology. 3. Nonspecific soft tissue changes in the midline anterior abdominal wall at the level of the previous feeding tube site. No loculated fluid collections. 4. Midline anterior abdominal wall hernia containing mesenteric fat. Ghassan Calderon MD Chest X-Ray 08/29/162204 Signed Impressions: Service Date/Time: Monday, August 29, 2016 22:27 - CONCLUSION: No acute disease. Good Dockery MD Laboratory Test 08/31/16 08/31/16 07:13 14:37 White Blood Count 5.2 TH/MM3 Red Blood Count 5.22 MIL/MM3 Hemoglobin 15.5 GM/DL Hematocrit 45.5 % Mean Corpuscular Volume 87.3 FL Mean Corpuscular Hemoglobin 29.7 PG Mean Corpuscular Hemoglobin 34.0 % Concent Red Cell Distribution Width 13.4 % Platelet Count 207 TH/MM3 Mean Platelet Volume 8.9 FL Neutrophils (%) (Auto) 60.5 % Lymphocytes (%) (Auto) 31.5 % Monocytes (%) (Auto) 4.5 % Eosinophils (%) (Auto) 2.3 % Basophils (%) (Auto) 1.2 % Neutrophils # (Auto) 3.1 TH/MM3 Lymphocytes # (Auto) 1.6 TH/MM3 Monocytes # (Auto) 0.2 TH/MM3 Eosinophils # (Auto) 0.1 TH/MM3 Basophils # (Auto) 0.1 TH/MM3 CBC Comment DIFF FINAL Differential Comment Hematology Comments Sodium Level 139 MEQ/L Potassium Level 3.7 MEQ/L Chloride Level 106 MEQ/L Carbon Dioxide Level 21.1 MEQ/L Anion Gap 12 MEQ/L Blood Urea Nitrogen 7 MG/DL Creatinine 0.54 MG/DL Estimat Glomerular Filtration 123 ML/MIN Rate Random Glucose 103 MG/DL Calcium Level 8.5 MG/DL Vancomycin Level Trough 11.7 MCG/ML Date/Time Procedure Status Source Growth 08/29/16 23:05 Aerobic Blood Culture - Preliminary Resulted Blood Peripheral NO GROWTH IN 2 DAYS 08/29/16 23:05 Anaerobic Blood Culture - Preliminary Resulted Blood Peripheral NO GROWTH IN 2 DAYS Physical Examination HEENT: PERRL; normocephalic; atraumatic; no jaundice. CHEST: CTA CARDIAC: RRR ABDOMEN: Soft, nondistended, wound site old GJ with redness, TTP RUQ and epigastrium; no hepatosplenomegaly; bowel sounds are present in all four quadrants. EXTREMITIES: No clubbing, cyanosis, or edema. SKIN: Normal; no rash; no jaundice. DATA CONVERSION ANALYST: No focal deficits; alert and oriented times three. Assessment and Plan Plan ASSESSMENT - abdominal pain - on palpation TTP is near inflamed GJ site, onset 2 weeks ago when tube came out. epigastric pain with radiation to back. no gall bladder. lipase WNL. no acute abd findings on CT, no loculations seen. LFTs WNL. EGD/colonoscopy > year ago, pt does not recall much - diarrhea - onset at admission, loose stool - displaced GJ - IR to replace - n/v - hx gastroparesis. has had no success with EGD w/ botox, EES, bethanechol, reglan. PLAN - consider gastric pacemaker - consider repeat EGD - stool cx - consider nutrition consult for TPN - monitor labs - further recommendations to follow THis pt seen by myself and DR Whyte and this note is written on her behalf Susu Woods Aug 31, 2016 16:33
[2016-08-31 20:00] VITALS: BP 117/74; PULSE 58; RESP 17; TEMP 96.4; O2SAT 94
[2016-09-01] VITALS (12 sets, daily range): BP systolic 91–124; BP diastolic 54–72; PULSE 48–72; RESP 16–18; TEMP 96.5–98.2; O2SAT 95–100
[2016-09-01] MEDS: ONDANSETRON HCL 4 MG/2 ML VIAL IV PUSH PRN ×3 (00:14→23:15)
[2016-09-01] MEDS: AZTREONAM INJ 2,000 MG in SODIUM CHLORIDE 0.9% INJ 100 ML IV SCH ×3 (00:15→23:17)
[2016-09-01] MEDS: HYDROmorphone HCL PF 1 MG/ML VIAL IV PUSH PRN ×4 (02:01→23:16)
[2016-09-01] MEDS: VANCOMYCIN INJ 1,250 MG in SODIUM CHLOR 0.9% 250 ML INJ 250 ML IV SCH ×2 (02:51→13:17)
[2016-09-01] MEDS: HEPARIN SODIUM - SQ 10,000 UNITS/ML VIAL SQ SCH ×3 (05:55→22:00)
[2016-09-01 07:49] LABS: AUTOMATED NEUTROPHIL # 4.4 TH/MM3 (1.8-7.7); BASOPHIL % 0.3 % (0.0-2.0); EOSINOPHIL # 0.1 TH/MM3 (0-0.4); EOSINOPHIL % 0.9 % (0.0-4.0); HEMATOCRIT 45.6 % (35.0-46.0); HEMO FLAGS DIFF FINAL; LYMPH % 23.8 % (9.0-44.0); LYMPHOCYTE # 1.5 TH/MM3 (1.0-4.8); MEAN CELL VOLUME 88.8 FL (80.0-100.0); MEAN CORPUSCULAR HEMOGLOBIN 29.8 PG (27.0-34.0); MEAN CORPUSCULAR HGB CONC 33.5 % (32.0-36.0); MONO % 4.7 % (0.0-8.0); NEUT % 70.3 % (16.0-70.0); PLATELET COUNT 209 TH/MM3 (150-450); RED BLOOD COUNT 5.13 MIL/MM3 (4.00-5.30); RED CELL DISTRIBUTION WIDTH 13.5 % (11.6-17.2); WHITE BLOOD COUNT 6.3 TH/MM3 (4.0-11.0)
[2016-09-01 08:06] LABS: BICARBONATE 21.6 MEQ/L (21.0-32.0); MAGNESIUM 1.8 MG/DL (1.5-2.5); POTASSIUM 3.5 MEQ/L (3.5-5.1)
[2016-09-01] MEDS: SODIUM CHLORIDE 0.9% FLUSH 10 ML FLUSH IV FLUSH SCH ×2 (08:54→23:37)
[2016-09-01] MEDS ORDERED: MIDAZOLAM HCL 5 MG/5 ML VIAL ONE (10:30)
[2016-09-01] MEDS ORDERED: fentaNYL CITRATE 250 MCG/5 ML AMP ONE (10:31)
[2016-09-01] MEDS ORDERED: diphenhydrAMINE HCL 50 MG/ML VIAL ONE (11:06)
[2016-09-01] MEDS ORDERED: HYDROmorphone HCL PF 2 MG/ML VIAL ONE (11:06)
--- NOTE | 2016-09-01 11:55 | HHI.PR ---
Subjective Remarks Patient is in bed, she says she has no nausea. Did not vomit. + Loose bowel movements. No fever or chills. Still with abdominal pain at the site of PEG tube. Erythema is improving. Plan for GJ tube placement in the afternoon by IR. Also consulted dietitian for recommendation of diet to discharge. Objective Vitals Vital Signs Date Time Temp Pulse Resp B/P Pulse Ox O2 Delivery O2 Flow Rate FiO2 09/01/16 08:00 97.0 61 16 124/72 100 09/01/16 06:28 16 09/01/16 04:00 96.9 62 17 110/70 97 09/01/16 01:29 16 09/01/16 00:00 96.5 54 18 109/64 96 08/31/16 20:00 96.4 58 17 117/74 94 08/31/16 16:00 97.6 61 16 100/65 94 08/31/16 12:00 96.7 64 16 109/57 95 I/O 08/31/16 08/31/16 08/31/16 09/01/16 09/01/16 09/01/16 06:59 14:59 22:59 06:59 14:59 22:59 Intake Total 480 ml Output Total 400 ml Balance 80 ml Intake Oral 480 ml Output Urine Total 400 ml # Voids 2 2 1 # Bowel Movements 3 1 Result Diagram: 09/01/16 0657 09/01/16 0657 Imaging Last Impressions Hip and Pelvis X-Ray 08/30/16 0000 Signed Impressions: Service Date/Time: Tuesday, August 30, 2016 13:41 - CONCLUSION: Unremarkable bilateral hips. Uli Goodman MD Abdomen/Pelvis CT 08/30/16 0000 Signed Impressions: Service Date/Time: Tuesday, August 30, 2016 00:28 - CONCLUSION: 1. Status post cholecystectomy. 2. No acute abdominal/pelvic pathology. 3. Nonspecific soft tissue changes in the midline anterior abdominal wall at the level of the previous feeding tube site. No loculated fluid collections. 4. Midline anterior abdominal wall hernia containing mesenteric fat. Ghassan Calderon MD Chest X-Ray 08/29/16 2849 Signed Impressions: Service Date/Time: Monday, August 29, 2016 22:27 - CONCLUSION: No acute disease. Good Dockery MD Objective Remarks GENERAL: This is a well-nourished, well-developed patient, in no apparent distress. Awake and alert. SKIN: (+) Scattered slightly erythematous macular rash on bilateral upper extremities. Cool and dry. CARDIOVASCULAR: Regular rate and rhythm without murmurs, gallops, or rubs. RESPIRATORY: Clear to auscultation. Breath sounds equal bilaterally. No wheezes , rales, or rhonchi. GASTROINTESTINAL: Abdomen soft, nondistended. (+)tenderness to palpation RUQ. No hepato-splenomegaly, or palpable masses. No guarding. (+) Erythema surrounding the previous G/J-tube site. No purulence appreciated. MUSCULOSKELETAL: Extremities without clubbing, cyanosis, or edema. No joint tenderness, effusion, or edema noted. No calf tenderness. NEUROLOGICAL: Awake and alert. Grossly nonfocal. Normal speech. A/P Assessment and Plan 46-year-old female with a past medical history of MS, lupus, cerebral palsy, spina bifida, severe gastroparesis status post G/J-tube placement, history of pancreatitis and history of bowel perforation who presents to [facility] ED with complaints of infection on her G/J-tube site ongoing for the past 2 weeks after the tube became dislodged. Abdominal cellulitis around previous G/J-tube site. G/J tube was removed. Patient is on antibiotics. CT abd doesn't show any abscess. Consult IR for evaluation of placement of GJ tube. Plan for GJ tube placement in the afternoon 09/01 by IR. Also consulted dietitian for recommendation of diet to discharge. Patient is afebrile. White count is normal. CRP 1.23 Continue patient on IV antibiotics consisting of Vancomycin and Azactam Pain management Follow up on blood culture results Severe gastroparesis with chronic nausea/vomiting and odynophagia Status post previous G/J-tube placement that has since become dislodged. Patient also complaints of abdominal pain . Currently on dilaudid Consult GI, discussed with Dr Whyte recommends IR for GJ tube placmenet. CT scan abd doesn't show any abscess Zofran when necessary nausea/vomiting Patient emphatically she is unable to tolerate NG tube Will order speech therapy swallow evaluation Bilateral hip pain Recurrent falls Past medical history significant for MS and spina bifida X-rays bilateral hips reviewed and negative PT eval/treatment Asthma COPD Ongoing tobaccoism Discussed smoking cessation/counseling DuoNeb's when necessary DVT prophylaxis - Heparin sq Resume home medications to treat patients other stable comorbidities including MS, Lupus, COPD and chronic gastroparesis once medication reconciliation completed. Discussed Condition With Patient, nurse, Charlotte Hendrix MD Sep 01, 2016 11:55
[2016-09-01] MEDS: LACTOBACILLUS ACIDOPHILUS TAB PO SCH ×2 (14:00→21:00)
--- NOTE | 2016-09-01 14:11 | PD.WCN.NOT ---
Wound Consult Description: Abdomen around JG tube site. Communicated with: RN Tanna, and Doctor Wallace Recommendation: Please cleanse abdominal area of skin erosion around previous JG tube site gently with soap an water and pat dry. Apply Calazime barrier cream to skin erosion BID and PRN. Additional Information: Patient seen on for abdominal wound management around JG tube. Patient assessed with skin erosion around old abdominal JG site. Erosion measuring ~6cm x ~6 cm. JG site appears dry without drainage. Left open to air. Nerissa Meléndez WCCRN Sep 01, 2016 14:11
--- NOTE | 2016-09-01 16:16 | HHI.GIFU ---
Subjective Remarks Resting in bed. States that she is supposed to go back down to IR later today to have G/J tube placed. States she has tried multiple medications and botox for her gastroparesis and nothing has helped. (Juanita Carter) Objective Vitals I&O Vital Signs Date Time Temp Pulse Resp B/P Pulse Ox O2 Delivery O2 Flow Rate FiO2 09/01/16 12:30 98.0 72 16 121/67 96 09/01/16 12:15 63 16 100/63 96 09/01/16 12:00 59 18 91/54 95 09/01/16 11:45 98.2 58 18 97/56 96 09/01/16 08:00 97.0 61 16 124/72 100 09/01/16 06:28 16 09/01/16 04:00 96.9 62 17 110/70 97 09/01/16 01:29 16 09/01/16 00:00 96.5 54 18 109/64 96 08/31/16 20:00 96.4 58 17 117/74 94 08/31/16 16:00 97.6 61 16 100/65 94 I/O 08/31/16 08/31/16 08/31/16 09/01/16 09/01/16 09/01/16 07:00 15:00 23:00 07:00 15:00 23:00 Intake Total 480 ml Output Total 400 ml Balance 80 ml Intake Oral 480 ml Output Urine Total 400 ml # Voids 2 2 1 2 # Bowel Movements 3 1 2 Laboratory Laboratory Tests Test 09/01/16 06:57 White Blood Count 6.3 Red Blood Count 5.13 Hemoglobin 15.3 Hematocrit 45.6 Mean Corpuscular Volume 88.8 Mean Corpuscular Hemoglobin 29.8 Mean Corpuscular Hemoglobin 33.5 Concent Red Cell Distribution Width 13.5 Platelet Count 209 Mean Platelet Volume 8.7 Neutrophils (%) (Auto) 70.3 Lymphocytes (%) (Auto) 23.8 Monocytes (%) (Auto) 4.7 Eosinophils (%) (Auto) 0.9 Basophils (%) (Auto) 0.3 Neutrophils # (Auto) 4.4 Lymphocytes # (Auto) 1.5 Monocytes # (Auto) 0.3 Eosinophils # (Auto) 0.1 Basophils # (Auto) 0.0 CBC Comment DIFF FINAL Differential Comment Sodium Level 139 Potassium Level 3.5 Chloride Level 106 Carbon Dioxide Level 21.6 Anion Gap 11 Blood Urea Nitrogen 7 Creatinine 0.59 Estimat Glomerular Filtration 111 Rate Random Glucose 90 Calcium Level 8.5 Magnesium Level 1.8 Date/Time Procedure Status Source Growth 08/29/16 23:05 Aerobic Blood Culture - Preliminary Resulted Blood Peripheral NO GROWTH IN 3 DAYS 08/29/16 23:05 Anaerobic Blood Culture - Preliminary Resulted Blood Peripheral NO GROWTH IN 3 DAYS Imaging Last Impressions Hip and Pelvis X-Ray 08/30/16 0000 Signed Impressions: Service Date/Time: Tuesday, August 30, 2016 13:41 - CONCLUSION: Unremarkable bilateral hips. Uli Goodman MD Abdomen/Pelvis CT 08/30/16 0000 Signed Impressions: Service Date/Time: Tuesday, August 30, 2016 00:28 - CONCLUSION: 1. Status post cholecystectomy. 2. No acute abdominal/pelvic pathology. 3. Nonspecific soft tissue changes in the midline anterior abdominal wall at the level of the previous feeding tube site. No loculated fluid collections. 4. Midline anterior abdominal wall hernia containing mesenteric fat. Ghassan Calderon MD Chest X-Ray 08/29/162204 Signed Impressions: Service Date/Time: Monday, August 29, 2016 22:27 - CONCLUSION: No acute disease. Good Dockery MD Physical Exam HEENT: Normocephalic; atraumatic; no jaundice. CHEST: CTA CARDIAC: RRR ABDOMEN: Soft, nondistended, Old g/j site with small amount purulent drainage, surrounding tissue erythematous, irritated. no hepatosplenomegaly; bowel sounds are present in all four quadrants. EXTREMITIES: No clubbing, cyanosis, or edema. [employer]: No focal deficits; alert and oriented times three. (Juanita Carter) Assessment and Plan Plan ASSESSMENT - Cellulitis G/J tube site. Tube came out 2 weeks ago. Abdomen/Pelvis CT (08/30)-----> 1. Status post cholecystectomy. 2. No acute abdominal/pelvic pathology. 3. Nonspecific soft tissue changes in the midline anterior abdominal wall at the level of the previous feeding tube site. No loculated fluid collections. 4. Midline anterior abdominal wall hernia containing mesenteric fat. Site with small amount purulent drainage, with surrounding area erythematous, irritated. Bcx no growth 3 days. Vanco/Azactam. Plan is for patient to go to IR for G/ J tube replacement today. - Severe gastroparesis with abdominal pain and N/V. S/P trials of EES, Bethanechol, Reglan, Botox injections- no improvement. G/J tube. D/W patient possible evaluation at motility clinic at [facility] as outpatient- pt states that she will not go there because her grandfather had a bad experience. T - Diarrhea. 2 stools today, 4 yesterday. send stool for cdiff. - MS, Spina bifida, OA, COPD, per attending. PLAN - Clear liquids - IR for G/J tube replacement - PPI - Abx, on vanco, azactam - Send stool for CDiff - Supportive care - Consider psych evaluation - Consider domperidone vs. gastric pacemaker as outpatient - Further recommendations to follow based on results of above - Pt seen and examined by Dr. Whyte and myself and this note is written on her behalf (Juanita Carter) Juanita Carter Sep 01, 2016 16:16 Talita Whyte MD Sep 01, 2016 22:14
[2016-09-01] MEDS ORDERED: CARB100S2 PO (18:28)
[2016-09-01] MEDS ORDERED: LORA1TAB12 PO (18:51)
[2016-09-01] MEDS ORDERED: reglan (18:52)
[2016-09-01] MEDS: carBAMazepine SUSP 200 MG/10 ML UDC PO SCH (23:37)
[2016-09-02] VITALS (7 sets, daily range): BP systolic 104–132; BP diastolic 55–66; PULSE 47–59; RESP 17–20; TEMP 96.2–97.6; O2SAT 95–97
[2016-09-02] MEDS: VANCOMYCIN INJ 1,250 MG in SODIUM CHLOR 0.9% 250 ML INJ 250 ML IV SCH ×2 (01:29→20:49)
[2016-09-02] MEDS: HEPARIN SODIUM - SQ 10,000 UNITS/ML VIAL SQ SCH ×3 (03:26→14:09)
[2016-09-02] MEDS: HYDROmorphone HCL PF 1 MG/ML VIAL IV PUSH PRN ×4 (06:04→21:00)
[2016-09-02] MEDS: ONDANSETRON HCL 4 MG/2 ML VIAL IV PUSH PRN (06:05)
[2016-09-02 07:08] LABS: AUTOMATED NEUTROPHIL # 5.5 TH/MM3 (1.8-7.7); BASOPHIL % 0.5 % (0.0-2.0); EOSINOPHIL # 0.1 TH/MM3 (0-0.4); EOSINOPHIL % 0.7 % (0.0-4.0); HEMATOCRIT 44.5 % (35.0-46.0); HEMO FLAGS DIFF FINAL; LYMPH % 22.1 % (9.0-44.0); LYMPHOCYTE # 1.7 TH/MM3 (1.0-4.8); MEAN CELL VOLUME 87.7 FL (80.0-100.0); MEAN CORPUSCULAR HEMOGLOBIN 30.1 PG (27.0-34.0); MEAN CORPUSCULAR HGB CONC 34.3 % (32.0-36.0); MONO % 4.1 % (0.0-8.0); NEUT % 72.6 % (16.0-70.0); PLATELET COUNT 220 TH/MM3 (150-450); RED BLOOD COUNT 5.07 MIL/MM3 (4.00-5.30); RED CELL DISTRIBUTION WIDTH 13.4 % (11.6-17.2); WHITE BLOOD COUNT 7.6 TH/MM3 (4.0-11.0)
[2016-09-02 07:39] LABS: POTASSIUM 3.2 MEQ/L (3.5-5.1)
[2016-09-02] MEDS: LACTOBACILLUS ACIDOPHILUS TAB PO SCH ×3 (09:00→14:05)
[2016-09-02] MEDS ORDERED: GLUCAGON 1 MG/ML VIAL ONE (11:38)
--- NOTE | 2016-09-02 12:04 | PD.RAD ---
Post Procedure Progress Note Pre Procedure Diagnosis: (1) Cellulitis Post Procedure Diagnosis: (1) Cellulitis Procedure Date: Sep 02, 2016 Supervising Radiologist: Issa Barba Proceduralist/Assist: Rere Redd, RT(R)(), Lexii Morin RT(R) Anesthesia: General Plan of Activity Patient to Unit: PACU Patient Condition: Good Additional Comments: Placed new 22 Danish GJ cath via new gastrsotomy access secondary to continued significant cellulitis at previous gastrostomy site. G-tube to bag drainage if PT has drainage from prior ostomy site. See PACS Report for procedural detail/treatment Issa Barba MD Sep 02, 2016 12:04
[2016-09-02] MEDS ORDERED: IOHEXOL 350 MG/ML 50 ML BTL (for RAD DIAG) G-TUBE ONE (12:08)
[2016-09-02] MEDS ORDERED: DO NOT ADM ANY ANTICOAGULANT DRUGS PRN (12:26)
[2016-09-02] MEDS ORDERED: MIDAZOLAM HCL 2 MG/2 ML VIAL ONE (12:36)
[2016-09-02] MEDS ORDERED: fentaNYL CITRATE 250 MCG/5 ML AMP ONE (12:36)
[2016-09-02] MEDS ORDERED: PHARMACY ORDERED LAB ONE (12:45)
--- NOTE | 2016-09-02 13:39 | RADRPT ---
EXAM DATE/TIME: 09/02/2016 10:44 [place] COMPARISON: No previous studies available for comparison. INDICATIONS : Patient with history of gastroparesis in need of GJ tube placement. Patient's prior gastrojejunostomy tube was accidentally discharged several weeks ago and patient has since developed severe cellulitis in the gastrostomy site. New gastrostomy access will be utilized. MEDICAL HISTORY : MS, Lupus, Cerebral palsy, Spina bifida, Pancreatitis, Bowel perforation, Severe gastroparesis, Previ ous GJ tube site infection after dislodgement, Asthma, COPD SURGICAL HISTORY : GJ tube placement, Laparoscopic cholecystectomy ENCOUNTER: Initial ACUITY: 2 weeks PAIN SCORE: 0/10 FLUORO TIME: 6 minutes IMAGE SERIES: 0 CONTRAST: 20 cc Omnipaque (iohexol) 350 DEVICE(S): 1.) 22 Fr Transgastric tube Anesthesia and pain control was provided by the Anesthesia department. PROCEDURE : 1. Fluoroscopically guided gastrojejunostomy tube placement. . The risks, benefits and alternatives to the procedure were explained and verbal and written consent w as obtained. The site was prepped in sterile fashion. Full sterile technique was used, including ca p, mask, sterile gloves and gown and a large sterile sheet. Hand hygiene and 2% chlorhexidine and/or betadine/alcohol prep was utilized per protocol for cutaneous antisepsis. The skin and subcutaneous tissues were infiltrated with local anesthetic solution. 1 mg of Glucagon was administered. The stomach was insufflated with room air using. The site slightl y more lateral from the previous gastrostomy site was marked. One percutaneous fastener was placed to secure the anterior gastric wall. A small incision was made between the fasteners. The stomach was accessed with an 18 gauge needle. A n 0.035 wire was advanced into the small bowel. The tract was dilated. The gastrojejunostomy tube w as introduced through a peel-away sheath. The position was confirmed with an injection of contrast in both the gastric and jejunal lumens. The existing fastener was then released. Prior CT exam demonstr ates appropriate apposition of the anterior gastric wall from prior gastrostomy catheter. The fastene r was placed at the concern for progression to skin ulcer due to extensive cellulitis in the vicinity . CONCLUSION: Uncomplicated gastrojejunostomy tube placement as above. Issa Barba MD on September 02, 2016 at 13:35 Board Certified Radiologist. This report was verified electronically.
[2016-09-02] MEDS: D5-NS + KCL 20 MEQ INJ 1,000 ML IV SCH ×2 (14:01→20:52)
[2016-09-02] MEDS: AZTREONAM INJ 2,000 MG in SODIUM CHLORIDE 0.9% INJ 100 ML IV SCH (14:01)
[2016-09-02] MEDS: POTASSIUM CHLOR 10 MEQ PREMIX 100 ML IV SCH ×2 (14:01→17:14)
[2016-09-02] MEDS: carBAMazepine SUSP 200 MG/10 ML UDC PO SCH ×2 (14:02→14:06)
[2016-09-02] MEDS: SODIUM CHLORIDE 0.9% FLUSH 10 ML FLUSH IV FLUSH SCH ×2 (14:04→20:51)
--- NOTE | 2016-09-02 16:20 | HHI.PR ---
Subjective Remarks awake and alert tolerated GJ tube replacement states uses Isosource as TF products- can;t tolerated jevity or other TF Objective Vitals Vital Signs Date Time Temp Pulse Resp B/P Pulse Ox O2 Delivery O2 Flow Rate FiO2 09/02/16 13:21 97.6 57 20 108/59 97 09/02/16 13:00 56 18 114/58 96 Room Air 09/02/16 12:45 60 18 111/53 98 Room Air 09/02/16 12:24 97.9 80 18 110/70 98 Room Air 09/02/16 08:30 96.3 58 19 105/60 97 09/02/16 06:34 18 09/02/16 04:00 97.0 52 18 107/55 97 09/02/16 00:00 97.0 47 18 104/62 97 09/01/16 23:32 48 09/01/16 20:00 96.9 50 18 110/59 96 09/01/16 18:21 58 18 123/64 95 09/01/16 18:13 55 I/O 09/01/16 09/01/16 09/01/16 09/02/16 09/02/16 09/02/16 07:00 15:00 23:00 07:00 15:00 23:00 Intake Total 355 ml 730 ml Balance 355 ml 730 ml IV Total 355 ml 30 ml Other 700 ml # Voids 1 2 2 3 # Bowel Movements 1 2 1 1 Result Diagram: 09/02/16 0527 09/02/16 0526 Imaging Last Impressions Gastrostomy Tube Placement 09/02/16 0000 Signed Impressions: Service Date/Time: Friday, September 02, 2016 10:44 - CONCLUSION: Uncomplicated gastrojejunostomy tube placement as above. Issa Barba MD Hip and Pelvis X-Ray 08/30/16 0000 Signed Impressions: Service Date/Time: Tuesday, August 30, 2016 13:41 - CONCLUSION: Unremarkable bilateral hips. Uli Goodman MD Abdomen/Pelvis CT 08/30/16 0000 Signed Impressions: Service Date/Time: Tuesday, August 30, 2016 00:28 - CONCLUSION: 1. Status post cholecystectomy. 2. No acute abdominal/pelvic pathology. 3. Nonspecific soft tissue changes in the midline anterior abdominal wall at the level of the previous feeding tube site. No loculated fluid collections. 4. Midline anterior abdominal wall hernia containing mesenteric fat. Ghassan Calderon MD Chest X-Ray 08/29/16 2207 Signed Impressions: Service Date/Time: Monday, August 29, 2016 22:27 - CONCLUSION: No acute disease. Good Dockery MD Objective Remarks awake and alert oriented x 3 anicteric lungs- no rales or wheezes regular rhtyhm abdomen- soft good bowel sounds, previous GJ tube site with erythema extremities no edema Procedures 09/02- GJ tube replacement A/P Assessment and Plan 46-year-old female with a past medical history of MS, lupus, cerebral palsy, spina bifida, severe gastroparesis status post G/J-tube placement, history of pancreatitis and history of bowel perforation who presents to [facility] ED with complaints of infection on her G/J-tube site ongoing for the past 2 weeks after the tube became dislodged. Abdominal cellulitis around previous G/J-tube site. G/J tube was removed. S/P GJ tube replacement 09/02 Patient is on antibiotics. CT abd doesn't show any abscess. consulted dietitian for recommendation of diet to discharge. Patient is afebrile. White count is normal. CRP 1.23 Continue patient on IV antibiotics consisting of Vancomycin and Azactam Pain management cultyres no growth sofar Severe gastroparesis with chronic nausea/vomiting and odynophagia Status post previous G/J-tube placement that has since become dislodged. Patient also complaints of abdominal pain . Currently on dilaudid GI ff - Zofran when necessary nausea/vomiting speech therapy swallow evaluation= diet as tolerated mainly for pleasure Bilateral hip pain Recurrent falls Past medical history significant for MS and spina bifida X-rays bilateral hips reviewed and negative PT eval/treatment Asthma COPD Ongoing tobaccoism Discussed smoking cessation/counseling DuoNeb's when necessary HYpokalemia- replace KCL/GT DVT prophylaxis - Heparin sq Resume home medications to treat patients other stable comorbidities including MS, Lupus, COPD and chronic gastroparesis once medication reconciliation completed. Clementina Velarde MD Sep 02, 2016 16:20
[2016-09-02] MEDS ORDERED: POTASSIUM CHLORIDE 25 MEQ EFFERVESCENT TAB J-TUBE ONE (16:45)
[2016-09-03] MEDS: AZTREONAM INJ 2,000 MG in SODIUM CHLORIDE 0.9% INJ 100 ML IV SCH ×2 (00:29→11:50)
[2016-09-03] MEDS ORDERED: HYDROmorphone HCL PF 1 MG/ML VIAL IV PUSH ONE (00:30)
[2016-09-03] MEDS: HYDROmorphone HCL PF 1 MG/ML VIAL IV PUSH PRN ×6 (03:00→21:52)
[2016-09-03] MEDS: ONDANSETRON HCL 4 MG/2 ML VIAL IV PUSH PRN ×4 (03:05→21:52)
[2016-09-03 04:00] VITALS: BP 138/77; PULSE 57; RESP 17; TEMP 97.2; O2SAT 98
[2016-09-03 04:03] VITALS: PULSE 51
[2016-09-03] MEDS: HEPARIN SODIUM - SQ 10,000 UNITS/ML VIAL SQ SCH ×3 (06:26→21:49)
[2016-09-03 06:46] LABS: BICARBONATE 22.5 MEQ/L (21.0-32.0); POTASSIUM 3.5 MEQ/L (3.5-5.1)
[2016-09-03 08:00] VITALS: BP 130/66; PULSE 55; RESP 19; TEMP 97.5; O2SAT 94
--- NOTE | 2016-09-03 08:18 | HHI.PR ---
Subjective Remarks d/w her that Isosource not available here but she tolerated osmolyte- we will start - her goal rate at home was 40 cc/hr discuss with her pain regimen- states she is on Roxanol and other meds- told her to bring the scripts here- no meds listed on admission take this for chronic back pain uses wheelchair most of the time voiding spontaneously reported loose stools last night - not this am Objective Vitals Vital Signs Date Time Temp Pulse Resp B/P Pulse Ox O2 Delivery O2 Flow Rate FiO2 09/03/16 04:03 51 09/03/16 04:00 97.2 57 17 138/77 98 09/02/16 23:36 97.2 59 18 131/66 96 09/02/16 20:00 96.3 57 17 124/62 96 09/02/16 20:00 54 09/02/16 16:49 96.2 59 20 132/61 95 09/02/16 13:21 97.6 57 20 108/59 97 09/02/16 13:00 56 18 114/58 96 Room Air 09/02/16 12:45 60 18 111/53 98 Room Air 09/02/16 12:24 97.9 80 18 110/70 98 Room Air 09/02/16 08:30 96.3 58 19 105/60 97 I/O 09/02/16 09/02/16 09/02/16 09/03/16 09/03/16 09/03/16 07:00 15:00 23:00 07:00 15:00 23:00 Intake Total 730 ml 240 ml 120 ml Output Total 600 ml Balance 730 ml 240 ml 120 ml -600 ml Intake Oral 240 ml 120 ml IV Total 30 ml Other 700 ml Gastric Drainage Total 600 ml # Voids 2 3 2 2 # Bowel Movements 1 1 0 0 Result Diagram: 09/02/16 0527 09/03/16 0543 Imaging Last Impressions Gastrostomy Tube Placement 09/02/16 0000 Signed Impressions: Service Date/Time: Friday, September 02, 2016 10:44 - CONCLUSION: Uncomplicated gastrojejunostomy tube placement as above. Issa Barba MD Hip and Pelvis X-Ray 08/30/16 0000 Signed Impressions: Service Date/Time: Tuesday, August 30, 2016 13:41 - CONCLUSION: Unremarkable bilateral hips. Uli Goodman MD Abdomen/Pelvis CT 08/30/16 0000 Signed Impressions: Service Date/Time: Tuesday, August 30, 2016 00:28 - CONCLUSION: 1. Status post cholecystectomy. 2. No acute abdominal/pelvic pathology. 3. Nonspecific soft tissue changes in the midline anterior abdominal wall at the level of the previous feeding tube site. No loculated fluid collections. 4. Midline anterior abdominal wall hernia containing mesenteric fat. Ghassan Calderon MD Chest X-Ray 08/29/165 Signed Impressions: Service Date/Time: Monday, August 29, 2016 22:27 - CONCLUSION: No acute disease. Good Dockery MD Objective Remarks awake and alert oriented x 3 anicteric lungs- no rales or wheezes regular rhythm abdomen- soft good bowel sounds, previous GJ tube site with mild erythema, dry extremities no edema Procedures 09/02- GJ tube replacement A/P Assessment and Plan 46-year-old female with a past medical history of MS, lupus, cerebral palsy, spina bifida, severe gastroparesis status post G/J-tube placement, history of pancreatitis and history of bowel perforation who presents to [facility] ED with complaints of infection on her G/J-tube site ongoing for the past 2 weeks after the tube became dislodged. Abdominal cellulitis around previous G/J-tube site. G/J tube was removed. S/P GJ tube replacement 09/02 Patient is on antibiotics. CT abdomen doesn't show any abscess. consulted dietitian for recommendation of diet to discharge. Patient is afebrile. White count is normal. CRP 1.23 on IV antibiotics consisting of Vancomycin and Azactam- cultures no growth so far- ID consult- for need for further recommendation wound care team consult- for GJ tube site care and recommendatiojns Severe gastroparesis with chronic nausea/vomiting and odynophagia Chronic pain Status post previous G/J-tube placement that has since become dislodged. Patient also complaints of abdominal pain . Currently on dilaudid -d/w her pain GI ff - Zofran when necessary nausea/vomiting speech therapy swallow evaluation= diet as tolerated mainly for pleasure restart TF- Osmolyte at 20 cc/hr Bilateral hip pain Recurrent falls Past medical history significant for MS and spina bifida X-rays bilateral hips reviewed and negative PT eval/treatment Asthma COPD Ongoing tobaccoism Discussed smoking cessation/counseling DuoNeb's when necessary HYpokalemia- improved. [place] 25 meq per GJ tube x 1 DVT prophylaxis - Heparin sq DC planning- SNF vs home with home health care -per patient wheelchair bound most of the time Resume home medications to treat patients other stable comorbidities including MS, Lupus, COPD and chronic gastroparesis once medication reconciliation completed. Clementina Velarde MD Sep 03, 2016 08:18
[2016-09-03] MEDS: carBAMazepine SUSP 200 MG/10 ML UDC PO SCH ×2 (08:26→21:48)
[2016-09-03] MEDS: VANCOMYCIN INJ 1,250 MG in SODIUM CHLOR 0.9% 250 ML INJ 250 ML IV SCH ×2 (08:27→21:47)
[2016-09-03] MEDS: SODIUM CHLORIDE 0.9% FLUSH 10 ML FLUSH IV FLUSH SCH ×2 (08:28→21:00)
[2016-09-03] MEDS: D5-NS + KCL 20 MEQ INJ 1,000 ML IV SCH ×2 (08:28→21:49)
[2016-09-03] MEDS ORDERED: POTASSIUM BICARBONATE 25 MEQ EFFERVESCENT TAB J-TUBE ONE (08:45)
[2016-09-03 12:44] VITALS: BP 116/59; PULSE 56; RESP 19; TEMP 96.8; O2SAT 95
--- NOTE | 2016-09-03 13:13 | HHI.GIFU ---
Subjective Remarks Resting in bed. States she continues to have nausea and vomiting, but is improving. G/J tube placed on 09/02. Has not started TF yet. Nurse states she is waiting for it to be brought to floor. Patient reports mild abdominal pain at old G/J tube site. (Vilma Dickerson) Objective Vitals I&O Vital Signs Date Time Temp Pulse Resp B/P Pulse Ox O2 Delivery O2 Flow Rate FiO2 09/03/16 12:44 96.8 56 19 116/59 95 09/03/16 08:00 97.5 55 19 130/66 94 09/03/16 04:03 51 09/03/16 04:00 97.2 57 17 138/77 98 09/02/16 23:36 97.2 59 18 131/66 96 09/02/16 20:00 96.3 57 17 124/62 96 09/02/16 20:00 54 09/02/16 16:49 96.2 59 20 132/61 95 09/02/16 13:21 97.6 57 20 108/59 97 I/O 09/02/16 09/02/16 09/02/16 09/03/16 09/03/16 09/03/16 07:00 15:00 23:00 07:00 15:00 23:00 Intake Total 730 ml 240 ml 120 ml Output Total 600 ml Balance 730 ml 240 ml 120 ml -600 ml Intake Oral 240 ml 120 ml IV Total 30 ml Other 700 ml Gastric Drainage Total 600 ml # Voids 2 3 2 2 # Bowel Movements 1 1 0 0 Laboratory Laboratory Tests Test 09/02/16 09/03/16 17:59 05:43 Vancomycin Level Trough 8.6 Sodium Level 140 Potassium Level 3.5 Chloride Level 106 Carbon Dioxide Level 22.5 Anion Gap 12 Blood Urea Nitrogen 6 Creatinine 0.49 Estimat Glomerular Filtration 137 Rate Random Glucose 81 Calcium Level 8.2 Thyroid Stimulating Hormone 0.317 3rd Gen Date/Time Procedure Status Source Growth 08/29/16 23:05 Aerobic Blood Culture - Final Complete Blood Peripheral NO GROWTH IN 5 DAYS 08/29/16 23:05 Anaerobic Blood Culture - Final Complete Blood Peripheral NO GROWTH IN 5 DAYS Imaging Last Impressions Gastrostomy Tube Placement 09/02/16 0000 Signed Impressions: Service Date/Time: Friday, September 02, 2016 10:44 - CONCLUSION: Uncomplicated gastrojejunostomy tube placement as above. Issa Barba MD Hip and Pelvis X-Ray 08/30/16 0000 Signed Impressions: Service Date/Time: Tuesday, August 30, 2016 13:41 - CONCLUSION: Unremarkable bilateral hips. Uli Goodman MD Abdomen/Pelvis CT 08/30/16 0000 Signed Impressions: Service Date/Time: Tuesday, August 30, 2016 00:28 - CONCLUSION: 1. Status post cholecystectomy. 2. No acute abdominal/pelvic pathology. 3. Nonspecific soft tissue changes in the midline anterior abdominal wall at the level of the previous feeding tube site. No loculated fluid collections. 4. Midline anterior abdominal wall hernia containing mesenteric fat. Ghassan Calderon MD Chest X-Ray 08/29/162204 Signed Impressions: Service Date/Time: Monday, August 29, 2016 22:27 - CONCLUSION: No acute disease. Good Dockery MD Physical Exam HEENT: PERRLA. Normocephalic; atraumatic; no jaundice. CHEST: CTA CARDIAC: RRR ABDOMEN: Soft, nondistended, Old G/J site with small amount purulent drainage, surrounding tissue erythematous, irritated. No hepatosplenomegaly; bowel sounds are present in all four quadrants. Current G/J tube CDI. EXTREMITIES: No clubbing, cyanosis, or edema. CLINICAL INSTRUCTOR: No focal deficits; alert and oriented times three. (Vilma Dickerson) Assessment and Plan Plan ASSESSMENT - Cellulitis G/J tube site. Tube came out 2 weeks ago. Abdomen/Pelvis CT (08/30)-----> 1. Status post cholecystectomy. 2. No acute abdominal/pelvic pathology. 3. Nonspecific soft tissue changes in the midline anterior abdominal wall at the level of the previous feeding tube site. No loculated fluid collections. 4. Midline anterior abdominal wall hernia containing mesenteric fat. Site with small amount purulent drainage, with surrounding area erythematous, irritated. Bcx no growth 5 days. Vanco/Azactam. New G/J tube placed 09/02. - Severe gastroparesis with abdominal pain and N/V. S/P trials of EES, Bethanechol, Reglan, Botox injections- no improvement. G/J tube. D/W patient possible evaluation at motility clinic at [facility] as outpatient- pt states that she will not go there because her grandfather had a bad experience. - Diarrhea. 1 stools today, 3 yesterday. send stool for cdiff. - MS, Spina bifida, OA, COPD, per attending. PLAN - Clear liquids - Start TF Osmolyte at 20cc/hr, to goal 40cc/hr - PPI - Abx, on vanco, azactam - Send stool for CDiff - Supportive care - Consider domperidone vs. gastric pacemaker as outpatient - Further recommendations to follow based on results of above Patient seen and examined by Dr. Whyte and myself and this note is written on her behalf (Vilma Dickerson) Physician Comments seen, examined agree with above consider gastric pacer, Domperidone op , possible medical marijuana ? gi will sign off call us as needed if dc fu gi in 2-4 weeks (Talita Whyte MD) Vilma Dickerson Sep 03, 2016 13:13 Talita Whyte MD Sep 03, 2016 13:54
--- NOTE | 2016-09-03 14:11 | PD.CONS ---
History of Present Illness Service Infectious disease Consult Requested By Dr Tom Velarde Reason for Consult Evaluate patient with cellulitis around the J-tube, has multiple antibiotic allergies, please make antibiotic recommendations Primary Care Physician Poncho Montero MD Diagnoses: History of Present Illness Patient seen and examined. Records reviewed. Patient is a 46-year-old female, with multiple medical problems, has a GJ tube in place for feeding due to her gastroparesis, presented to the hospital for further evaluation of infection around her GJ tube site. She has had some abdominal discomfort around the site. Her primary care physician gave her some oral antibiotic for the redness around the tube. Apparently the tube got dislodged, so the patient was advised to go to the hospital. Patient has not been febrile. She her WBC is normal. Patient underwent placement of a new to yesterday by IR. She was started on Azactam and vancomycin when she came into the hospital for abdominal wall cellulitis.. CT of the abdomen and pelvis did not show any evidence of abdominal wall abscess. Patient is clinically improving. Infectious disease consultation has been requested to make antibiotic recommendations of her multiple antibiotic allergies. She is on day 6 of IV antibiotics. Review of Systems Constitutional: DENIES: Fever, Chills Eyes: DENIES: Eye pain Ears, nose, mouth, throat: DENIES: Nasal discharge, Oral lesions, Throat pain, Ear Pain, Sinus Pain Respiratory: DENIES: Cough, Shortness of breath Cardiovascular: DENIES: Chest pain, Palpitations Gastrointestinal: COMPLAINS OF: Abdominal pain, Nausea, Vomiting Musculoskeletal: COMPLAINS OF: Muscle aches Integumentary: DENIES: Rash Neurologic: DENIES: Headache Psychiatric: DENIES: Hallucinations Past Family Social History Allergies: Coded Allergies: Cefazolin (Verified Allergy, Severe, RASH, 08/29/16) Cipro (Verified Allergy, Severe, PANCREATITIS, 08/29/16) Interferon Beta 1a (Verified Allergy, Severe, ANAPHALACTIC, 08/29/16) Interferons (Verified Allergy, Severe, ANAPHALACTIC, 08/29/16) Latex (Verified Allergy, Severe, ANAPHALACTIC, 08/29/16) Nonsteroidal Anti-Inflammatory Agts (Verified Allergy, Severe, GI, 08/29/16 ) Penicillin (Verified Allergy, Severe, ANAPHALACTIC, 08/29/16) Theophylline (Verified Allergy, Severe, TACHYCARDIA, 08/29/16) Ultracet (Verified Allergy, Severe, GI, 08/29/16) Aspirin (Verified Allergy, Intermediate, RASH, 08/29/16) Gabapentin (Verified Allergy, Intermediate, HIVES, 08/29/16) Seafood (Verified Allergy, Intermediate, RASH, 08/29/16) Tramadol/Acetaminophen (Verified Allergy, Intermediate, LIVER ISSUE, ) Tylenol (Verified Allergy, Intermediate, LIVER, 08/29/16) Uncoded Allergies: COPAXONE (Allergy, Severe, ANAPHALACTIC, 07/26/15) Past Medical History MS Lupus History of cerebral palsy Spina bifida Severe gastroparesis status post G/J-tube placement Asthma COPD History of pancreatitis History of bowel perforation Past Surgical History G/J-tube placement Laparoscopic cholecystectomy Surgery for bowel perforation Active Ordered Medications Azactam Tegretol Heparin Dilaudid Lactinex Zofran Oxycodone Potassium Vancomycin Family History Sister had brain tumor Social History History of tobacco use half pack per day since the age of 24. Patient denies any alcohol consumption. Patient reports marijuana use. Denies IVDU Physical Exam Vital Signs Vital Signs Date Time Temp Pulse Resp B/P Pulse Ox O2 Delivery O2 Flow Rate FiO2 09/03/16 12:44 96.8 56 19 116/59 95 09/03/16 08:00 97.5 55 19 130/66 94 09/03/16 04:03 51 09/03/16 04:00 97.2 57 17 138/77 98 09/02/16 23:36 97.2 59 18 131/66 96 09/02/16 20:00 96.3 57 17 124/62 96 09/02/16 20:00 54 09/02/16 16:49 96.2 59 20 132/61 95 Physical Exam GENERAL: Patient is a well-nourished, well-developed patient, awake and alert , not in respiratory distress. SKIN: Warm and dry. No generalized rash, no ecchymoses and no evidence of embolic lesions. HEAD: Atraumatic. Normocephalic. No temporal wasting, or tenderness. EYES: [place] conjunctiva. No petechia or hemorrhage. Pupils equal, round and reactive to light. Extraocular movements full and intact. No scleral icterus. No injection or drainage. EARS, NOSE AND THROAT: Nose without bleeding or purulent nasal discharge. No sinus tenderness. Mucous membranes pink and moist. No oral lesions noted. No exudate. No oral thrush. NECK: Trachea midline. Supple and not tender, no meningeal signs CARDIOVASCULAR: Regular rate and rhythm. No murmurs, rubs or gallops heard RESPIRATORY: Clear to auscultation. Breath sounds equal bilaterally. No rales , wheezing or rhonchi ABDOMEN: Soft, non-tender, nondistended. Bowel sounds present and normoactive. No guarding. No rebound. No organomegaly. EXTREMITIES: No clubbing, cyanosis, or edema.No joint effusion, has good ROM. No calf tenderness. Well perfused and warm. NEUROLOGICAL: Awake and alert. Cranial nerves grossly intact. Motor grossly within normal limits. PSYCHIATRIC: Normal affect, calm and cooperative. LINE: No evidence of infection Laboratory Laboratory Tests Test 09/02/16 09/03/16 17:59 05:43 Vancomycin Level Trough 8.6 Sodium Level 140 Potassium Level 3.5 Chloride Level 106 Carbon Dioxide Level 22.5 Anion Gap 12 Blood Urea Nitrogen 6 Creatinine 0.49 Estimat Glomerular Filtration 137 Rate Random Glucose 81 Calcium Level 8.2 Thyroid Stimulating Hormone 0.317 3rd Gen Date/Time Procedure Status Source Growth 08/29/16 23:05 Aerobic Blood Culture - Final Complete Blood Peripheral NO GROWTH IN 5 DAYS 08/29/16 23:05 Anaerobic Blood Culture - Final Complete Blood Peripheral NO GROWTH IN 5 DAYS Result Diagram: 09/02/16 0527 09/03/16 0543 Imaging RADIOLOGY STUDIES/FILMS REVIEWED Gastrostomy Tube Placement 09/02/16 0000 Signed Impressions: Service Date/Time: Friday, September 02, 2016 10:44 - CONCLUSION: Uncomplicated gastrojejunostomy tube placement as above. Issa Barba MD Hip and Pelvis X-Ray 08/30/16 0000 Signed Impressions: Service Date/Time: Tuesday, August 30, 2016 13:41 - CONCLUSION: Unremarkable bilateral hips. Uli Goodman MD Abdomen/Pelvis CT 08/30/16 0000 Signed Impressions: Service Date/Time: Tuesday, August 30, 2016 00:28 - CONCLUSION: 1. Status post cholecystectomy. 2. No acute abdominal/pelvic pathology. 3. Nonspecific soft tissue changes in the midline anterior abdominal wall at the level of the previous feeding tube site. No loculated fluid collections. 4. Midline anterior abdominal wall hernia containing mesenteric fat. Ghassan J. Siragusa, MD Chest X-Ray 08/29/16 3791 Signed Impressions: Service Date/Time: Monday, August 29, 2016 22:27 - CONCLUSION: No acute disease. Good Dockery MD Assessment and Plan Assessment and Plan IMPRESSION Cellulitis around G/J tube site, almost resolved S/P replacement of G/J tube Multiple Abx allergies (PCN, cephalosporins, quinolones) Hx SLE, MS, spina bifida Hx gastroparesis RECOMMENDATION Continue Vanco and Azactam - could D/C after tomorrow's dose Other options if oral Abx needed if she gets any infection would be: Clinda, Doxycycline, Zyvox and Bactrim - Doxy and Bactrim has GNR coverage as well as GPC coverage I will be available prn Please reconsult if with any new ID issue or question Thank you for this consultation Discussed Condition With Explained plan to the patient Sima Frederick MD Sep 03, 2016 14:11
[2016-09-03 16:48] VITALS: BP 114/75; PULSE 70; RESP 20; TEMP 97.3; O2SAT 95
[2016-09-03 20:00] VITALS: BP 110/62; PULSE 66; RESP 17; TEMP 97.2; O2SAT 96
[2016-09-03] MEDS: LACTOBACILLUS ACIDOPHILUS TAB PO SCH (21:48)
[2016-09-04] VITALS (7 sets, daily range): BP systolic 107–153; BP diastolic 59–78; PULSE 55–83; RESP 14–60; TEMP 96.2–98; O2SAT 95–98
[2016-09-04] MEDS ORDERED: NITR0.4S SL (00:19)
[2016-09-04] MEDS ORDERED: ZANA4CAP PO (00:19)
[2016-09-04] MEDS: AZTREONAM INJ 2,000 MG in SODIUM CHLORIDE 0.9% INJ 100 ML IV SCH ×2 (00:29→13:06)
[2016-09-04] MEDS: HYDROmorphone HCL PF 1 MG/ML VIAL IV PUSH PRN ×5 (02:02→18:10)
[2016-09-04] MEDS: ONDANSETRON HCL 4 MG/2 ML VIAL IV PUSH PRN ×2 (06:19→13:07)
[2016-09-04] MEDS: HEPARIN SODIUM - SQ 10,000 UNITS/ML VIAL SQ SCH ×2 (06:20→13:07)
[2016-09-04] MEDS: carBAMazepine SUSP 200 MG/10 ML UDC PO SCH (09:41)
[2016-09-04] MEDS: LACTOBACILLUS ACIDOPHILUS TAB PO SCH (09:41)
[2016-09-04] MEDS: SODIUM CHLORIDE 0.9% FLUSH 10 ML FLUSH IV FLUSH SCH (09:42)
[2016-09-04] MEDS: VANCOMYCIN INJ 1,250 MG in SODIUM CHLOR 0.9% 250 ML INJ 250 ML IV SCH (09:42)
--- NOTE | 2016-09-04 12:12 | EKG ---
Date Performed: 09/04/2016 Time Performed: 11:50:27 PTAGE: 46 years EKG: SINUS BRADYCARDIA BORDERLINE ECG PREVIOUS TRACING : 08/29/2016 23.11 No significant change from previous tracing noted. DOCTOR: Ken Ravi Interpretating Date/Time 09/04/2016 12:12:07
--- NOTE | 2016-09-04 12:36 | HHI.PR ---
Subjective Remarks went in there with schedule manager to d/w her DC plans no complains of chest pains or shortness of breath she is concerned about her sister - who is manipulating her tolerating po, and TF Objective Vitals Vital Signs Date Time Temp Pulse Resp B/P Pulse Ox O2 Delivery O2 Flow Rate FiO2 09/04/16 08:00 97.1 83 14 116/78 98 09/04/16 04:00 98.0 58 18 125/64 97 09/04/16 00:00 98.0 58 17 107/61 97 09/03/16 20:00 97.2 66 17 110/62 96 09/03/16 16:48 97.3 70 20 114/75 95 09/03/16 12:44 96.8 56 19 116/59 95 I/O 09/03/16 09/03/16 09/03/16 09/04/16 09/04/16 09/04/16 07:00 15:00 23:00 07:00 15:00 23:00 Intake Total 120 ml 480 ml 240 ml 0 ml Output Total 600 ml Balance 120 ml -120 ml 240 ml 0 ml Intake Oral 120 ml 480 ml 240 ml 0 ml Gastric Drainage Total 600 ml # Voids 2 2 2 2 # Bowel Movements 0 1 0 0 Result Diagram: 09/02/16 0527 09/03/16 0543 Objective Remarks awake and alert oriented x 3 anicteric lungs- no rales or wheezes regular rhythm abdomen- soft good bowel sounds, previous GJ tube site with mild erythema, dry extremities no edema Procedures 09/02- GJ tube replacement A/P Assessment and Plan 46-year-old female with a past medical history of MS, lupus, cerebral palsy, spina bifida, severe gastroparesis status post G/J-tube placement, history of pancreatitis and history of bowel perforation who presents to [facility] ED with complaints of infection on her G/J-tube site ongoing for the past 2 weeks after the tube became dislodged. Abdominal cellulitis around previous G/J-tube site. G/J tube was removed. S/P GJ tube replacement 09/02 Patient is on antibiotics. CT abdomen doesn't show any abscess. consulted dietitian for recommendation of diet to discharge. Patient is afebrile. White count is normal. CRP 1.23 on IV antibiotics consisting of Vancomycin and Azactam- cultures no growth so far- ID consult- for need for further recommendation wound care team consult- for GJ tube site care and recommendatiojns DC IV antibiotics after today Severe gastroparesis with chronic nausea/vomiting and odynophagia Chronic pain Status post previous G/J-tube placement that has since become dislodged. Patient also complaints of abdominal pain . Currently on dilaudid -d/w her pain GI ff - Zofran when necessary nausea/vomiting speech therapy swallow evaluation= diet as tolerated mainly for pleasure restart TF- Osmolyte at 20 cc/hr Bilateral hip pain Recurrent falls Past medical history significant for MS and spina bifida X-rays bilateral hips reviewed and negative PT eval Asthma COPD Ongoing tobaccoism Discussed smoking cessation/counseling DuoNeb's when necessary HYpokalemia- improved. DVT prophylaxis - Heparin sq DC planning- SNF vs home with home health care -per patient wheelchair bound most of the time Resume home medications to treat patients other stable comorbidities including MS, Lupus, COPD and chronic gastroparesis once medication reconciliation completed. add: patient expressing paranoid thoughts - her sister stealing from her, and seeing things flying in the room psychiatry consult Clementina Velarde MD Sep 04, 2016 12:36
--- NOTE | 2016-09-04 14:28 | PD.WCN.NOT ---
Wound Consult Description: Abdomen around JG tube old site Communicated with: CONSTANZA Almanzar and Doctor Prachi Recommendation: Please cleanse abdominal area of skin erosion around previous JG tube site gently with soap an water and pat dry. Apply Calazime barrier cream to skin erosion BID and PRN. Additional Information: Patient seen on for evaluation JG tube care. Dejah has new JG tube in place. Removed saturated drain sponge from around current JG tube. Cleansed with normal saline and cotton swab. Old JG tube site noted with less erythema Cleansed area with normal saline and gently dried. Applied Calazime barrier cream around old JG site and left open to air, Applied new drain sponge around current JG tube . Nerissa Meléndez [facility] Sep 04, 2016 14:28 Wound Location: Abdomen around JG tube site. Nerissa Meléndez [facility] Sep 04, 2016 14:28
[2016-09-04] MEDS: D5-NS + KCL 20 MEQ INJ 1,000 ML IV SCH (18:13)
[2016-09-05] VITALS (11 sets, daily range): BP systolic 113–127; BP diastolic 60–68; PULSE 57–73; RESP 18–20; TEMP 96.7–97.8; O2SAT 92–99
[2016-09-05] MEDS ORDERED: ALBU1AER5 INH (00:19)
[2016-09-05] MEDS ORDERED: PROM25VI3 IM (00:19)
[2016-09-05] MEDS ORDERED: PROC10TA PO (00:19)
[2016-09-05] MEDS ORDERED: TEMA7.5C9 PO (00:19)
[2016-09-05] MEDS ORDERED: ALBU6.7H INH (00:19)
[2016-09-05] MEDS ORDERED: BUSP15TA PO (00:19)
[2016-09-05] MEDS ORDERED: DILA2TAB2 PO (00:19)
[2016-09-05] MEDS ORDERED: ALPR.25 PO (00:19)
[2016-09-05] MEDS ORDERED: METO10TA G-TUBE (00:19)
[2016-09-05] MEDS ORDERED: FLUO-1 PO (00:19)
[2016-09-05] MEDS ORDERED: SULF1TAB58 G-TUBE (00:19)
[2016-09-05] MEDS ORDERED: CARB100S G-TUBE (00:19)
[2016-09-05] MEDS ORDERED: TIZA4CAP3 G-TUBE (00:19)
[2016-09-05] MEDS ORDERED: DILA4TAB2 G-TUBE (00:19)
[2016-09-05] MEDS ORDERED: CARB100S PO (00:19)
[2016-09-05] MEDS ORDERED: ALPR.5 PO (00:19)
[2016-09-05] MEDS ORDERED: PROM2SUP RECTAL (00:19)
[2016-09-05] MEDS ORDERED: IPRASOL INH (00:19)
[2016-09-05] MEDS: carBAMazepine SUSP 200 MG/10 ML UDC PO SCH ×4 (01:15→20:34)
[2016-09-05] MEDS: D5-NS + KCL 20 MEQ INJ 1,000 ML IV SCH (01:16)
[2016-09-05] MEDS: SODIUM CHLORIDE 0.9% FLUSH 10 ML FLUSH IV FLUSH SCH ×3 (01:16→20:17)
[2016-09-05] MEDS: LACTOBACILLUS ACIDOPHILUS TAB PO SCH ×3 (01:16→20:17)
[2016-09-05] MEDS: AZTREONAM INJ 2,000 MG in SODIUM CHLORIDE 0.9% INJ 100 ML IV SCH ×2 (01:16→11:19)
[2016-09-05] MEDS: HEPARIN SODIUM - SQ 10,000 UNITS/ML VIAL SQ SCH ×4 (01:17→23:09)
[2016-09-05] MEDS: HYDROmorphone HCL PF 1 MG/ML VIAL IV PUSH PRN ×2 (01:18→08:24)
[2016-09-05] MEDS: ONDANSETRON HCL 4 MG/2 ML VIAL IV PUSH PRN ×2 (02:02→08:23)
--- NOTE | 2016-09-05 07:47 | HHI.PR ---
Subjective Remarks patient last evening expressing thoughts of hurting herself and plan "I will cut myself" tolerating tube feedings very well at goal rate of 40 cc/hr this am- confirmed above intents denies any pain when discussed with her- she was at one point under Vitas- and "just dropped me " states she was on Roxanol Objective Vitals Vital Signs Date Time Temp Pulse Resp B/P Pulse Ox O2 Delivery O2 Flow Rate FiO2 09/05/16 02:04 16 09/05/16 00:00 97.4 70 18 127/60 99 09/04/16 20:00 97.1 74 17 124/78 97 09/04/16 16:00 96.2 55 14 118/59 95 09/04/16 12:00 97.1 60 60 153/73 97 09/04/16 08:00 76 09/04/16 08:00 97.1 83 14 116/78 98 I/O 09/04/16 09/04/16 09/04/16 09/05/16 09/05/16 09/05/16 06:59 14:59 22:59 06:59 14:59 22:59 Intake Total 0 ml Balance 0 ml Intake Oral 0 ml # Voids 2 1 # Bowel Movements 0 Result Diagram: 09/02/16 0527 09/03/16 0543 Imaging Last Impressions Gastrostomy Tube Placement 09/02/16 0000 Signed Impressions: Service Date/Time: Friday, September 02, 2016 10:44 - CONCLUSION: Uncomplicated gastrojejunostomy tube placement as above. Issa Barba MD Hip and Pelvis X-Ray 08/30/16 0000 Signed Impressions: Service Date/Time: Tuesday, August 30, 2016 13:41 - CONCLUSION: Unremarkable bilateral hips. Uli Goodman MD Abdomen/Pelvis CT 08/30/16 0000 Signed Impressions: Service Date/Time: Tuesday, August 30, 2016 00:28 - CONCLUSION: 1. Status post cholecystectomy. 2. No acute abdominal/pelvic pathology. 3. Nonspecific soft tissue changes in the midline anterior abdominal wall at the level of the previous feeding tube site. No loculated fluid collections. 4. Midline anterior abdominal wall hernia containing mesenteric fat. Ghassan Calderon MD Chest X-Ray 08/29/16 1867 Signed Impressions: Service Date/Time: Monday, August 29, 2016 22:27 - CONCLUSION: No acute disease. Good Dockery MD Objective Remarks awake and alert oriented x 3 anicteric lungs- no rales or wheezes regular rhythm abdomen- soft good bowel sounds, previous GJ tube site, erythema improved, dry extremities no edema Procedures 09/02- GJ tube replacement A/P Assessment and Plan 46-year-old female with a past medical history of MS, lupus, cerebral palsy, spina bifida, severe gastroparesis status post G/J-tube placement, history of pancreatitis and history of bowel perforation who presents to [facility] ED with complaints of infection on her G/J-tube site ongoing for the past 2 weeks after the tube became dislodged. Abdominal cellulitis around previous G/J-tube site. G/J tube was removed. S/P GJ tube replacement 09/02 Patient is on antibiotics. CT abdomen doesn't show any abscess. S/P Vancomycin and Azactam- wound care team recommendations appreciated Severe gastroparesis with chronic nausea/vomiting and odynophagia Chronic pain Status post previous G/J-tube placement that has since become dislodged. Patient also complaints of abdominal pain . Currently on dilaudid -d/w her pain- change to po Zofran when necessary nausea/vomiting speech therapy swallow evaluation= diet as tolerated mainly for pleasure restarted TF- Osmolyte - tolerating goal rate Bilateral hip pain Recurrent falls Past medical history significant for MS and spina bifida X-rays bilateral hips reviewed and negative PT eval restart po pain meds Asthma- in remission COPD Ongoing tobaccoism Discussed smoking cessation/counseling DuoNeb's when necessary HYpokalemia- improved. History of Bipolar/Depression- expressing suicidal ideations and thought -psychiatry consulted- -will defer to subspecialty regarding meds- - possibly transfer to med psych floor DVT prophylaxis - Heparin sq Clementina Velarde MD Sep 05, 2016 07:47 Clementina Velarde MD Sep 05, 2016 07:47 add: patient expressing paranoid thoughts - her sister stealing from her, and seeing things flying in the room psychiatry consult Clementina Velarde MD Sep 05, 2016 07:47 Clementina Velarde MD Sep 05, 2016 07:47
[2016-09-05] MEDS ORDERED: PHARMACY ORDERED LAB ONE (08:45)
[2016-09-05] MEDS: HYDROmorphone HCL 2 MG TAB PO PRN ×3 (11:26→20:17)
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
[2016-09-05] MEDS: PARoxetine HCL 20 MG TAB PO SCH (15:29)
[2016-09-05] MEDS ORDERED: PILL SPLITTER OTHER PRN (15:30)
[2016-09-05] MEDS ORDERED: QUEtiapine FUMARATE 25 MG TAB PO SCH (21:00)
[2016-09-06] VITALS (9 sets, daily range): BP systolic 114–134; BP diastolic 40–80; PULSE 52–88; RESP 16–18; TEMP 96.8–98.4; O2SAT 95–97
[2016-09-06] MEDS: HEPARIN SODIUM - SQ 10,000 UNITS/ML VIAL SQ SCH ×2 (05:36→13:44)
[2016-09-06] MEDS: HYDROmorphone HCL 2 MG TAB PO PRN ×4 (05:39→17:57)
[2016-09-06] MEDS: carBAMazepine SUSP 200 MG/10 ML UDC PO SCH (09:00)
[2016-09-06] MEDS: LACTOBACILLUS ACIDOPHILUS TAB PO SCH (09:20)
[2016-09-06] MEDS: SODIUM CHLORIDE 0.9% FLUSH 10 ML FLUSH IV FLUSH SCH (09:20)
[2016-09-06] MEDS: PARoxetine HCL 20 MG TAB PO SCH (09:20)
[2016-09-06] MEDS: ONDANSETRON HCL 4 MG/2 ML VIAL IV PUSH PRN ×2 (09:20→17:57)
--- NOTE | 2016-09-06 12:51 | HHI.PR ---
Subjective Remarks patient doing very well- tolerating TF at goal rate, smiling and more interactive today- no crying spells taking po by pleasure no episodes of vomiting complains of pain - tailbone -chronic Objective Vitals Vital Signs Date Time Temp Pulse Resp B/P Pulse Ox O2 Delivery O2 Flow Rate FiO2 09/06/16 08:00 97.9 79 16 114/68 96 09/06/16 06:39 16 09/06/16 04:00 97.0 60 18 125/63 96 09/06/16 00:02 59 09/06/16 00:00 96.8 52 18 134/64 97 09/05/16 20:11 65 09/05/16 20:00 97.8 73 18 113/65 92 09/05/16 16:23 96.7 61 20 116/67 96 09/05/16 16:00 66 I/O 09/05/16 09/05/16 09/05/16 09/06/16 09/06/16 09/06/16 07:00 15:00 23:00 07:00 15:00 23:00 Intake Total 820 ml 192 ml Balance 820 ml 192 ml Intake Oral 720 ml IV Total 100 ml TPN/PPN 192 ml # Voids 3 4 Result Diagram: 09/02/16 0527 09/03/16 0543 Imaging Last Impressions Gastrostomy Tube Placement 09/02/16 0000 Signed Impressions: Service Date/Time: Friday, September 02, 2016 10:44 - CONCLUSION: Uncomplicated gastrojejunostomy tube placement as above. Issa Barba MD Hip and Pelvis X-Ray 08/30/16 0000 Signed Impressions: Service Date/Time: Tuesday, August 30, 2016 13:41 - CONCLUSION: Unremarkable bilateral hips. Uli Goodman MD Abdomen/Pelvis CT 08/30/16 0000 Signed Impressions: Service Date/Time: Tuesday, August 30, 2016 00:28 - CONCLUSION: 1. Status post cholecystectomy. 2. No acute abdominal/pelvic pathology. 3. Nonspecific soft tissue changes in the midline anterior abdominal wall at the level of the previous feeding tube site. No loculated fluid collections. 4. Midline anterior abdominal wall hernia containing mesenteric fat. Ghassan Calderon MD Chest X-Ray 08/29/16 5241 Signed Impressions: Service Date/Time: Monday, August 29, 2016 22:27 - CONCLUSION: No acute disease. Good Dockery MD Objective Remarks awake and alert oriented x 3 anicteric lungs- no rales or wheezes regular rhythm abdomen- soft good bowel sounds, previous GJ tube site, erythema improved, dry extremities no edema Procedures 09/02- GJ tube replacement A/P Assessment and Plan 46-year-old female with a past medical history of MS, lupus, cerebral palsy, spina bifida, severe gastroparesis status post G/J-tube placement, history of pancreatitis and history of bowel perforation who presents to [facility] ED with complaints of infection on her G/J-tube site ongoing for the past 2 weeks after the tube became dislodged. Abdominal cellulitis around previous G/J-tube site. G/J tube was removed. S/P GJ tube replacement 09/02- RESolved. S/P antibiotic course wound care team recommendations appreciated Severe gastroparesis with chronic nausea/vomiting and odynophagia Chronic pain Status post previous G/J-tube placement that has since become dislodged. Patient also complaints of abdominal pain . Currentlypo pain meds prn Zofran when necessary nausea/vomiting S/P speech therapy swallow evaluation= diet as tolerated mainly for pleasure on TF- Osmolyte - tolerating goal rate Bilateral hip pain Recurrent falls Past medical history significant for MS and spina bifida X-rays bilateral hips reviewed and negative PT eval restart po pain meds Asthma- in remission COPD Ongoing tobaccoism Discussed smoking cessation/counseling DuoNeb's when necessary HYpokalemia- improved. History of Bipolar/Depression- expressing suicidal ideations and thought -Dr. Mueller ff- transfer to med psych floor when bed available DVT prophylaxis - Heparin sq Request floor to get her a wheelchair to get around with Clementina Velarde MD Sep 06, 2016 12:50
[2016-09-06] MEDS ORDERED: carBAMazepine 200 MG TAB PO SCH (13:00)
== END 2016-09-06 18:39 | DRG 603 ==
LOC: NEPC 17:57 → NEDA 08-30 01:20 → HOCB 08-30 03:45
PROVIDERS: ADMIT Family Medicine; ATTEND Family Medicine
PROC: 0DHA3UZ Insertion of Feeding Device into Jejunum, Percutaneous Approach (ICD-10-PCS; principal; 2016-09-02)
DX: L03.311 Cellulitis of abdominal wall (principal); M32.9 Systemic lupus erythematosus, unspecified; K94.13 Enterostomy malfunction; G35 Multiple sclerosis; K31.84 Gastroparesis; G80.9 Cerebral palsy, unspecified; J44.9 Chronic obstructive pulmonary disease, unspecified; F31.9 Bipolar disorder, unspecified; M25.551 Pain in right hip; M25.552 Pain in left hip; R29.6 Repeated falls; K43.9 Ventral hernia without obstruction or gangrene; Q05.9 Spina bifida, unspecified; E87.6 Hypokalemia; R19.7 Diarrhea, unspecified; F17.210 Nicotine dependence, cigarettes, uncomplicated; F12.90 Cannabis use, unspecified, uncomplicated; Z88.1 Allergy status to other antibiotic agents; Z99.3 Dependence on wheelchair
CPT/HCPCS: 49440; 49441; 71010; 73521; 74177; 76937; 80048; 80053; 80202; 82550; 83605; 83690; 83735; 84443; 84484; 84703; 85025; 85610; 85730; 86140; 87040; 93005; 96361; 96365; 96368; 96375; C1769; C1887; C1894; J1170; J1200; J1610; J1644; J2250; J2405; J3010; J3370; J3480; J7030; J7040; J7050; Q9967

== ENCOUNTER 2016-09-06 18:47 | Inpatient (IN) | payer OTHER ==
[2016-09-06 18:30] VITALS: BP 122/55; PULSE 80; RESP 16; O2SAT 96
[~2016-09-06 18:47] MED LIST changes: -ALBU1AER INH; +ALBU1AER5 INH; +ALBU6.7H INH; +ALPR.25 PO; +ALPR.5 PO; -BACT800T5 PO; +BUSP15TA PO; +CARB100S G-TUBE; +CARB100S PO; +CARB100S2 PO; -CHOL4 PO; +DILA2TAB2 PO; +DILA4TAB2 G-TUBE; -DILA8TAB4 PO; -ESOM1CAP6 PO; -FAMO20TA2 PO; +FLUO-1 PO; -IPRAAER IN; +IPRASOL INH; -LORA1TAB PO; +LORA1TAB12 PO; -METH10TA PO; +METO10TA G-TUBE; -MILKSUS5 PO; +NITR0.4S SL; +PROC10TA PO; +PROM25VI3 IM; +PROM2SUP RECTAL; -PROT40TA PO; +SULF1TAB58 G-TUBE; +TEMA7.5C9 PO; +TIZA4CAP3 G-TUBE; +ZANA4CAP PO; -ZOFR8TAB PO; -[UNRECOGNIZED DRUG - CODE] PO; +reglan
[2016-09-06] MEDS ORDERED: ALUMINUM/MAGNESIUM/SIMETH 30 ML CUP PO PRN (20:30)
[2016-09-06] MEDS ORDERED: LORazepam 0.5 MG TAB PO PRN (20:30)
[2016-09-06] MEDS ORDERED: ACETAMINOPHEN 325 MG TAB PO PRN (20:30)
[2016-09-06] MEDS ORDERED: LORazepam 2 MG/ML VIAL IM PRN ×2 (20:30)
[2016-09-06] MEDS ORDERED: MAGNESIUM HYDROXIDE SUSP 30 ML CUP PO PRN (20:30)
[2016-09-06] MEDS: carBAMazepine SUSP 200 MG/10 ML UDC PO SCH (21:00)
[2016-09-06] MEDS: REMOVE OLD NICODERM (NICOTINE) PATCH T-DERMAL SCH (21:00)
[2016-09-06] MEDS: NICOTINE 21 MG/24 HR PATCH T-DERMAL SCH (21:00)
[2016-09-06] MEDS: LORazepam 1 MG TAB PO PRN (22:45)
[2016-09-06] MEDS ORDERED: QUEtiapine FUMARATE 100 MG TAB G-TUBE ONE (23:30)
[2016-09-07 06:31] VITALS: BP 118/67; PULSE 85; RESP 14; TEMP 97.7; O2SAT 94
[2016-09-07] MEDS: busPIRone HCL 5 MG TAB PO SCH ×3 (08:13→17:54)
[2016-09-07] MEDS: NICOTINE 21 MG/24 HR PATCH T-DERMAL SCH (08:15)
[2016-09-07] MEDS: carBAMazepine SUSP 200 MG/10 ML UDC PO SCH ×2 (08:15→21:11)
[2016-09-07 08:47] LABS: ANION GAP 11 MEQ/L (5-15); BICARBONATE 25.3 MEQ/L (21.0-32.0); BLOOD UREA NITROGEN 11 MG/DL (7-18); CHLORIDE 101 MEQ/L (98-107); GLOMERULAR FILTRATION RATE 125 ML/MIN (>89); POTASSIUM 3.5 MEQ/L (3.5-5.1); SODIUM (NA) 137 MEQ/L (136-145)
[2016-09-07 08:51] LABS: LDL CHOLESTEROL 106 MG/DL (0-99)
[2016-09-07] MEDS ORDERED: PNEUMOCOCCAL POLYVALENT INJ 25 MCG/0.5 ML SYR IM ONE (09:00)
[2016-09-07] MEDS ORDERED: INFLUENZA VIRUS VACCINE (QUADRIVALENT) 0.5 ML SYR IM ONE (09:00)
[2016-09-07] MEDS: LORazepam 1 MG TAB PO PRN ×2 (10:00→17:00)
[2016-09-07] MEDS ORDERED: PILL SPLITTER OTHER PRN (10:30)
--- NOTE | 2016-09-07 14:27 | PD.CONS ---
HPI Service [facility] Consult Requested By Psychiatry team Reason for Consult Medical management Primary Care Physician Poncho Montero MD Diagnoses: History of Present Illness Written by Nelly Leonardo, acting as scribe for Dr. Gonsalez on 09/07/16 at 14:11. This note was transcribed by jason FERRERA. I, Dr. Charlotte Gonsalez personally performed the history, physical exam, and medical decision making; and confirmed the accuracy of the information in the transcribed note. Authenticated by Dr. Charlotte Gonsalez on 09/07/16 at 14:11. Patient is a 46-year-old female with primary medical history of MS, lupus, cerebral palsy, spina bifida, severe gastroparesis status post GJ tube placement , history of pancreatitis, history of bowel perforation who came in initially to the hospital for complaint of cellulitis on her GJ tube site. Patient's GJ tube has been replaced. She commented on trying to harm herself. She is now transferred to inpatient psychiatry unit for further evaluation. Consulted for medical management. Patient seen and examined today. Reports she is doing well but continues to have abdominal pain. States that the GJ tube is sitting right on her hernia and pushing at that's causing her to have some pain and discomfort. She also continues to be nauseous. States that she has continuous feeding at 40 ML's an hour which is working for her. Unable to tolerate fluid order occasional supplement boluses. Complaints of back pain, chronic, aggravated by prolonged sitting and immobilization, rated 8/10, achy, intermittent. Otherwise, denies SOB/ dyspnea. Denies chest pain, palpitations, headaches, dizziness. Denies fevers, chills, diarrhea. Denies hematuria, dysuria. Review of Systems Except as stated in HPI: all other systems reviewed are Neg Past Family Social History Allergies: Coded Allergies: Cefazolin (Verified Allergy, Severe, RASH, 08/29/16) Cipro (Verified Allergy, Severe, PANCREATITIS, 08/29/16) Interferon Beta 1a (Verified Allergy, Severe, ANAPHALACTIC, 08/29/16) Interferons (Verified Allergy, Severe, ANAPHALACTIC, 08/29/16) Latex (Verified Allergy, Severe, ANAPHALACTIC, 08/29/16) Nonsteroidal Anti-Inflammatory Agts (Verified Allergy, Severe, GI, 08/29/16 ) Penicillin (Verified Allergy, Severe, ANAPHALACTIC, 08/29/16) Theophylline (Verified Allergy, Severe, TACHYCARDIA, 08/29/16) Ultracet (Verified Allergy, Severe, GI, 08/29/16) Aspirin (Verified Allergy, Intermediate, RASH, 08/29/16) Gabapentin (Verified Allergy, Intermediate, HIVES, 08/29/16) Seafood (Verified Allergy, Intermediate, RASH, 08/29/16) Tramadol/Acetaminophen (Verified Allergy, Intermediate, LIVER ISSUE, ) Tylenol (Verified Allergy, Intermediate, LIVER, 08/29/16) *MDRO Multi-Drug Resistant Organism (Verified Adverse Reaction, Unknown, ) 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 Uncoded Allergies: COPAXONE (Allergy, Severe, ANAPHALACTIC, 07/26/15) Past Medical History MS Lupus History of cerebral palsy Spina bifida Severe gastroparesis status post G/J-tube placement Asthma COPD History of pancreatitis History of bowel perforation Past Surgical History G/J-tube placement Laparoscopic cholecystectomy Reported Medications Reported Meds & Active Scripts Active Reported Tegretol Liq (Carbamazepine) 100 Mg/5 Ml Susp 100 Mg PO TID Sulfamethoxazole-Tmp Ss Tablet (Sulfamethoxazole/Trimethoprim) 400 Mg-80 Mg Tablet 800 G-TUBE BID NEB Metoclopramide (Metoclopramide HCl) 10 Mg Tab 10 Mg G-TUBE ACHS Proventil Hfa 6.7 GM Inh (Albuterol Sulfate) 90 Mcg/Act Aer 2 Puff INH Q6H PRN Tizanidine (Tizanidine HCl) 4 Mg Cap 4 Mg G-TUBE BID NEB Dilaudid (Hydromorphone HCl) 4 Mg Tab 4 Mg G-TUBE Q4H Nitrostat SL (Nitroglycerin) 0.4 Mg Subl 0.4 Mg SL DIRECTED PRN 1 tablet under the tongue as needed for chest pain. Repeat every 5 minutes for a total of 3 DOSES or call 911 if NO relief. Tegretol Liq (Carbamazepine) 100 Mg/5 Ml Susp 100 Mg G-TUBE BID NEB Prozac (Fluoxetine HCl) 10 Mg Cap 10 Mg PO DAILY Phenergan (Promethazine HCl) 25 Mg/Ml Vial 12.5 IM Q8HR PRN Prochlorperazine Maleate 10 Mg Tab 10 Mg PO HS Buspirone (Buspirone HCl) 15 Mg Tab 15 Mg PO TID Phenergan Supp (Promethazine HCl) 12.5 Mg Supp 12.5 Mg RECTAL Q6H PRN Restoril (Temazepam) 7.5 Mg Cap 7.5 Mg PO HS Zanaflex (Tizanidine HCl) 4 Mg Cap 4 Mg PO BID Xanax (Alprazolam) 0.5 Mg Tab 0.5 Mg PO Q4H PRN Xanax (Alprazolam) 0.25 Mg Tab 0.5 Mg PO Q8H Proair Respiclick Inh (Albuterol Sulfate) 90 Mcg/Act Aerp 2 Puff INH Q6H PRN Duoneb (Ipratropium-Albuterol Neb) 0.5-2.5 Mg/3 Ml Neb 1 Nebule INH Q6HR NEB Dilaudid (Hydromorphone HCl) 2 Mg Tab 2 Mg PO Q4H Dilaudid (Hydromorphone HCl) 2 Mg Tab 2 Mg PO Q4H PRN [reglan] Lorazepam 1 Mg Tab 1 Mg PO BID PRN Carbamazepine Liq (Carbamazepine) 100 Mg/5 Ml Susp 100 Mg PO BID Active Ordered Medications Current Medications Medications (Trade) Dose Ordered Sig/Yoly Route Start Time Stop Time Status Last Admin (Buspar) 15 mg TID PO 09/07/16 09:00 09/07/16 13:04 (TEGretol LIQ) 100 mg BID PO 09/06/16 21:00 09/07/16 08:15 (Zanaflex) 4 mg BID G-TUBE 09/06/16 21:00 09/07/16 08:04 (Ativan) 1 mg Q6H PRN PO 09/06/16 20:30 09/07/16 10:00 (Ativan Inj) 1 mg Q6H PRN IM 09/06/16 20:30 (Milk Of Magnesia Liq) 30 ml DAILY PRN PO 09/06/16 20:30 (Mag-Al Plus Susp Liq) 30 ml Q6H PRN PO 09/06/16 20:30 (Habitrol 21 Mg Patch.24 Hr) 1 patch DAILY T-DERMAL 09/06/16 21:00 Miscellaneous Information 1 HS T-DERMAL 09/06/16 21:00 (Remeron) 7.5 mg HS PO 09/07/16 21:00 (Pill Splitter) 1 ea UNSCH PRN OTHER 09/07/16 10:30 Family History Sister has brain tumor Social History Denies alcohol use Former smoker, quit 2 days prior to hospitalization Denies illicit drug use Physical Exam Vital Signs Vital Signs Date Time Temp Pulse Resp B/P Pulse Ox O2 Delivery O2 Flow Rate FiO2 09/07/16 06:31 97.7 85 14 118/67 94 09/06/16 18:30 80 16 122/55 96 Physical Exam GENERAL: This is a well-nourished in no apparent distress. SKIN: War. and dry. HEAD: Normocephalic. Right frontal lesion notable. EYES: Pupils equal round and reactive. No scleral icterus. No injection or drainage. ENT: Nose without bleeding. Throat without erythema. Uvula midline. Airway patent. NECK: Trachea midline. CARDIOVASCULAR: Regular rate and rhythm without murmurs, gallops, or rubs. RESPIRATORY: Clear to auscultation. Breath sounds equal bilaterally. No wheezes , rales, or rhonchi. GASTROINTESTINAL: Abdomen soft, nondistended. GJ insertion site with mild erythema, no edema, tenderness to palpation. MUSCULOSKELETAL: Extremities without clubbing, cyanosis, or edema. NEUROLOGICAL: Awake and alert. Oriented to person, place, time. Normal speech. Laboratory Laboratory Tests Test 09/07/16 06:48 Sodium Level 137 Potassium Level 3.5 Chloride Level 101 Carbon Dioxide Level 25.3 Anion Gap 11 Blood Urea Nitrogen 11 Creatinine 0.53 Estimat Glomerular Filtration 125 Rate Random Glucose 92 Calcium Level 9.3 Triglycerides Level 243 Cholesterol Level 201 LDL Cholesterol 106 HDL Cholesterol 46.0 Cholesterol/HDL Ratio 4.36 Result Diagram: 09/07/16 0648 Assessment and Plan Problem List: (1) Adjustment disorder with mixed anxiety and depressed mood ICD Code: F43.23 Status: Acute (2) Cellulitis ICD Code: L03.90 Status: Acute (3) SPinCIF/CP Status: Acute Assessment and Plan Patient is a 46-year-old female with primary medical history of MS, lupus, cerebral palsy, spina bifida, severe gastroparesis status post GJ tube placement , history of pancreatitis, history of bowel perforation who came in initially to the hospital for complaint of cellulitis on her GJ tube site. Patient's GJ tube has been replaced. She commented on trying to harm herself. She is now transferred to inpatient psychiatry unit for further evaluation. Consulted for medical management Abdominal cellulitis around previous G/J-tube site. G/J tube was removed. S/P GJ tube replacement 09/02- Resolved. S/P antibiotic course - Wound care continue - Completed antibiotic Severe gastroparesis with chronic nausea/vomiting and odynophagia Chronic pain Status post previous G/J-tube placement that has since become dislodged. Patient also complaints of abdominal pain . Currentlypo pain meds prn Zofran when necessary nausea/vomiting - Speech therapy swallow evaluation - diet as tolerated mainly for pleasure - On Osmolite 40 ML's an hour. Patient states she is unable to tolerate tube feeding boluses Bilateral hip pain Recurrent falls Past medical history significant for MS and spina bifida X-rays bilateral hips reviewed and negative PT eval Pain management Asthma- in remission COPD Tobacco use Discussed smoking cessation/counseling. Patient states she hasn't smoked since 2 days prior to admission. Reports she has no intentions of smoking again. DuoNeb's when necessary HLD - Cholesterol 201, LDL C106 - Recommend diet and exercise. Not in statin benefit group, ASCVD <5% DVT prophylaxis - Heparin sq Code Status Full code Discussed Condition With Discussed with patient, nursing Nelly Dixon Sep 07, 2016 14:27 Charlotte Gonsalez MD Sep 07, 2016 16:47
[2016-09-07 17:44] VITALS: BP 123/66; PULSE 78; RESP 20; TEMP 98.2; O2SAT 96
[2016-09-07] MEDS: ONDANSETRON ODT 4 MG TAB PO PRN (17:54)
[2016-09-07 18:05] LABS: HEMOGLOBIN A1a 0.9 %; HEMOGLOBIN A1b 1.5 %; HEMOGLOBIN LA1C 1.9 %; HEMOGLOBIN P3 3.4 %
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
[2016-09-07] MEDS ORDERED: MIRTAZAPINE 15 MG TAB PO SCH (21:00)
[2016-09-07] MEDS: REMOVE OLD NICODERM (NICOTINE) PATCH T-DERMAL SCH (21:00)
[2016-09-07] MEDS ORDERED: HYDROmorphone HCL 2 MG TAB PO ONE (21:00)
[2016-09-08] MEDS: LORazepam 1 MG TAB PO PRN ×3 (03:39→21:03)
[2016-09-08] MEDS: ONDANSETRON ODT 4 MG TAB PO PRN ×2 (03:39→09:45)
[2016-09-08 06:44] VITALS: BP 99/58; PULSE 77; RESP 16; TEMP 97.5; O2SAT 95
[2016-09-08] MEDS: busPIRone HCL 5 MG TAB PO SCH ×3 (09:00→18:13)
[2016-09-08] MEDS: carBAMazepine SUSP 200 MG/10 ML UDC PO SCH ×2 (09:48→21:00)
[2016-09-08] MEDS: NICOTINE 21 MG/24 HR PATCH T-DERMAL SCH (09:49)
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
[2016-09-08 17:44] VITALS: BP 110/55; PULSE 94; RESP 17; TEMP 99.2; O2SAT 95
[2016-09-08] MEDS: REMOVE OLD NICODERM (NICOTINE) PATCH T-DERMAL SCH (21:00)
[2016-09-08] MEDS: MIRTAZAPINE 15 MG TAB PO SCH (21:00)
[2016-09-09 05:41] VITALS: BP 129/73; PULSE 70; RESP 16; TEMP 98.2; O2SAT 99
[2016-09-09 06:08] VITALS: BP 129/73; PULSE 70; RESP 16; TEMP 98.2; O2SAT 99
[2016-09-09] MEDS: NICOTINE 21 MG/24 HR PATCH T-DERMAL SCH (07:11)
[2016-09-09] MEDS: carBAMazepine SUSP 200 MG/10 ML UDC PO SCH ×2 (07:51→20:46)
[2016-09-09] MEDS: LORazepam 1 MG TAB PO PRN ×3 (07:51→20:45)
[2016-09-09] MEDS: busPIRone HCL 5 MG TAB PO SCH ×3 (07:51→17:52)
[2016-09-09] MEDS: ONDANSETRON ODT 4 MG TAB PO PRN ×3 (07:51→18:45)
--- NOTE | 2016-09-09 12:07 | HHI.PR ---
Subjective Remarks Patient in bed, she doesn't appear in distress. She is telling me feliciano doesn't work, says she is taking dilaudid. The patient was with hospice prior and was on dialudid. Denies n/v/d/c. No fever or chills. Objective Vitals Vital Signs Date Time Temp Pulse Resp B/P Pulse Ox O2 Delivery O2 Flow Rate FiO2 09/09/16 06:08 98.2 70 16 129/73 99 09/09/16 05:41 98.2 70 16 129/73 99 09/08/16 17:44 99.2 94 17 110/55 95 I/O 09/08/16 09/08/16 09/08/16 09/09/16 09/09/16 09/09/16 06:59 14:59 22:59 06:59 14:59 22:59 Intake Total 847 ml 1200 ml 720 ml 0 ml 240 ml Output Total 20 ml Balance 827 ml 1200 ml 720 ml 0 ml 240 ml Intake Oral 480 ml 1200 ml 720 ml 0 ml 240 ml IV Total 0 ml Tube Irrigant 247 ml Other 120 ml Output Drainage Total 20 ml # Voids 2 2 3 1 Result Diagram: 09/07/16 0648 Objective Remarks GENERAL: This is a well-nourished in no apparent distress. CARDIOVASCULAR: Regular rate and rhythm without murmurs, gallops, or rubs. RESPIRATORY: Clear to auscultation. Breath sounds equal bilaterally. No wheezes , rales, or rhonchi. GASTROINTESTINAL: Abdomen soft, nondistended. GJ insertion site with mild erythema, no edema, tenderness to palpation. MUSCULOSKELETAL: Extremities without clubbing, cyanosis, or edema. NEUROLOGICAL: Awake and alert. Oriented to person, place, time. Normal speech. A/P Problem List: (1) Adjustment disorder with mixed anxiety and depressed mood ICD Code: F43.23 Status: Acute (2) Cellulitis ICD Code: L03.90 Status: Acute (3) SPinCIF/CP Status: Acute Assessment and Plan Patient is a 46-year-old female with primary medical history of MS, lupus, cerebral palsy, spina bifida, severe gastroparesis status post GJ tube placement , history of pancreatitis, history of bowel perforation who came in initially to the hospital for complaint of cellulitis on her GJ tube site. Patient's GJ tube has been replaced. She commented on trying to harm herself. She is now transferred to inpatient psychiatry unit for further evaluation. Consulted for medical management Abdominal cellulitis around previous G/J-tube site. G/J tube was removed. S/P GJ tube replacement 09/02- Resolved. S/P antibiotic course - Wound care continue - Completed antibiotic Severe gastroparesis with chronic nausea/vomiting and odynophagia Chronic pain Status post previous G/J-tube placement that has since become dislodged. Patient also complaints of abdominal pain . Currentlypo pain meds prn Zofran when necessary nausea/vomiting - Speech therapy swallow evaluation - diet as tolerated mainly for pleasure - On Osmolite 40 ML's an hour. Patient states she is unable to tolerate tube feeding boluses Bilateral hip pain Recurrent falls Past medical history significant for MS and spina bifida X-rays bilateral hips reviewed and negative PT eval Pain management Asthma- in remission COPD Tobacco use Discussed smoking cessation/counseling. Patient states she hasn't smoked since 2 days prior to admission. Reports she has no intentions of smoking again. DuoNeb's when necessary HLD - Cholesterol 201, LDL C106 - Recommend diet and exercise. Not in statin benefit group, ASCVD <5% DVT prophylaxis - Heparin sq Code Status Full code Discussed Condition With Discussed with patient, nurse Stable medically will sign off , reconsult as need Charlotte Gonsalez MD Sep 09, 2016 12:07
--- NOTE | 2016-09-09 16:13 | HHI.PYPN ---
Subjective Remarks Patient seen in her room with nurse Brandie, patient laying in bed with a somewhat needy look on her face saying things are not stable with her that she is wondering why the the psychiatric service has not referred her to hospice. I shared with her that hospice is related to terminal medical conditions. That her mental health issues are not a factor in hospice care at this time. I told she needs to talk to medical service about this. Otherwise she is compliant medication is quite vague about any suicidality. There appears to be some degree of perhaps med seeking her manipulation with this lady also. For now continue treatment Review of Systems Except as stated in HPI: all other systems reviewed are Neg Objective Alert: Yes [place]: Person, Place, Date Mood: Other ("terrible") Affect: Other (Constricted) Memory Intact: Immediate, Recent, Remote Hallucinations: Visual (continues to endorse seeing "angels" at times.) Delusions: No Delusion Type: Other (None) Suicidal: Ideation (Suicidal ideation) Homicidal: Ideation (no homicidal ideation) Insight/Judgment Very poor Vitals/IOs Vital Signs Date Time Temp Pulse Resp B/P Pulse Ox O2 Delivery O2 Flow Rate FiO2 09/09/16 06:08 98.2 70 16 129/73 99 Intake and Output 09/08/16 09/08/16 09/09/16 08:00 16:00 00:00 Intake Total 607 ml 960 ml 720 ml Output Total 20 ml Balance 587 ml 960 ml 720 ml Assessment & Plan Problem List: (1) Adjustment disorder with mixed anxiety and depressed mood ICD Code: F43.23 Assessment & Plan Estimated LOS: days patient continues depressed needy and somewhat demanding. For now continue treatment Justification for Cont. Inpt. At this time patient decompensate is not placed a lower level of care Discharge Planning To be determined Request HC Surrog/Guard Advoc?: No Poncho Rivas MD Sep 09, 2016 16:13
[2016-09-09 18:00] VITALS: BP 104/67; PULSE 89; RESP 16; TEMP 99; O2SAT 95
[2016-09-09] MEDS: MIRTAZAPINE 15 MG TAB PO SCH (20:45)
[2016-09-09] MEDS: METOCLOPRAMIDE HCL 10 MG TAB PO SCH (20:46)
[2016-09-09] MEDS: REMOVE OLD NICODERM (NICOTINE) PATCH T-DERMAL SCH (20:46)
[2016-09-10 06:05] VITALS: BP 110/68; PULSE 88; RESP 15; TEMP 97.2; O2SAT 95
[2016-09-10] MEDS: METOCLOPRAMIDE HCL 10 MG TAB PO SCH ×4 (06:47→21:04)
[2016-09-10] MEDS: NICOTINE 21 MG/24 HR PATCH T-DERMAL SCH (07:17)
[2016-09-10] MEDS: ONDANSETRON ODT 4 MG TAB PO PRN ×2 (08:09→21:04)
[2016-09-10] MEDS: LORazepam 1 MG TAB PO PRN ×3 (08:09→21:04)
[2016-09-10] MEDS: busPIRone HCL 5 MG TAB PO SCH ×3 (08:09→18:29)
--- NOTE | 2016-09-10 08:09 | HHI.PYPN ---
Subjective Remarks Patient seen in her room with nurse Isabel, chart review, patient compliant with her medications. Patient somewhat calmer with me today with improved eye contact from the little bit of "feisty". Today She denies suicidality homicidality voices or visions today.. For now continue treatment Review of Systems Except as stated in HPI: all other systems reviewed are Neg Objective Alert: Yes [place]: Person, Place, Date Mood: Other ("terrible") Affect: Other (Constricted) Memory Intact: Immediate, Recent, Remote Hallucinations: Visual (continues to endorse seeing "angels" at times.) Delusions: No Delusion Type: Other (None) Suicidal: Ideation (Suicidal ideation) Homicidal: Ideation (no homicidal ideation) Insight/Judgment Poor Vitals/IOs Vital Signs Date Time Temp Pulse Resp B/P Pulse Ox O2 Delivery O2 Flow Rate FiO2 09/10/16 06:05 97.2 88 15 110/68 95 Intake and Output 09/09/16 09/09/16 09/09/16 07:59 15:59 23:59 Intake Total 120 ml 120 ml 1200 ml Balance 120 ml 120 ml 1200 ml Assessment & Plan Problem List: (1) Adjustment disorder with mixed anxiety and depressed mood ICD Code: F43.23 Assessment & Plan Estimated LOS: days patient's mood is somewhat improved today though just minimally. Though her eye contact is somewhat better and she showing some slight increase in affect. Compliant medications Justification for Cont. Inpt. At this time patient may decompensate if not placed in an appropriate level of care Discharge Planning To be determined Request HC Surrog/Guard Advoc?: No Poncho Rivas MD Sep 10, 2016 08:09
[2016-09-10] MEDS: carBAMazepine SUSP 200 MG/10 ML UDC PO SCH ×2 (08:55→21:05)
--- NOTE | 2016-09-10 16:59 | HHI.PR ---
Subjective Remarks She is in bed, watching TV she doesn't appear in acute distress or in pain. However the patient is still complaining of pain is chronic, she also says she has pain at the feeding tube site. Denies fever or chills. No nausea, vomiting , diarrhea or constipation. Would like to have more physical therapy. We'll consult also PT. Objective Vitals Vital Signs Date Time Temp Pulse Resp B/P Pulse Ox O2 Delivery O2 Flow Rate FiO2 09/10/16 06:05 97.2 88 15 110/68 95 09/09/16 21:45 10 09/09/16 18:00 99.0 89 16 104/67 95 I/O 09/09/16 09/09/16 09/09/16 09/10/16 09/10/16 09/10/16 06:59 14:59 22:59 06:59 14:59 22:59 Intake Total 0 ml 240 ml 1200 ml 988 ml 600 ml Balance 0 ml 240 ml 1200 ml 988 ml 600 ml Intake Oral 0 ml 240 ml 1200 ml 600 ml Tube Feeding 868 ml Tube Irrigant 120 ml # Voids 1 2 3 Result Diagram: 09/07/16 0648 Objective Remarks GENERAL: This is a well-nourished in no apparent distress. CARDIOVASCULAR: Regular rate and rhythm without murmurs, gallops, or rubs. RESPIRATORY: Clear to auscultation. Breath sounds equal bilaterally. No wheezes , rales, or rhonchi. GASTROINTESTINAL: Abdomen soft, nondistended. GJ insertion site with mild erythema, no edema, tenderness to palpation. MUSCULOSKELETAL: Extremities without clubbing, cyanosis, or edema. NEUROLOGICAL: Awake and alert. Oriented to person, place, time. Normal speech. A/P Problem List: (1) Adjustment disorder with mixed anxiety and depressed mood ICD Code: F43.23 Status: Acute (2) Cellulitis ICD Code: L03.90 Status: Acute (3) SPinCIF/CP Status: Acute Assessment and Plan Patient is a 46-year-old female with primary medical history of MS, lupus, cerebral palsy, spina bifida, severe gastroparesis status post GJ tube placement , history of pancreatitis, history of bowel perforation who came in initially to the hospital for complaint of cellulitis on her GJ tube site. Patient's GJ tube has been replaced. She commented on trying to harm herself. She is now transferred to inpatient psychiatry unit for further evaluation. Consulted for medical management Abdominal cellulitis around previous G/J-tube site. G/J tube was removed. S/P GJ tube replacement 09/02- Resolved. S/P antibiotic course - Wound care continue - Completed antibiotic Severe gastroparesis with chronic nausea/vomiting and odynophagia Chronic pain Status post previous G/J-tube placement that has since become dislodged. Patient also complaints of abdominal pain . Currently po pain meds prn oxycodone 5 mg every 6 hours when necessary. Patient was on hospice before and she used to take his medications daily 2 hours as well as Dilaudid 2 mg every 2 hours. Patient is asking for these medications. We'll consult palliative care for further management and recommendations. Consult PT for physical deconditioning. Zofran when necessary nausea/vomiting - Speech therapy swallow evaluation - diet as tolerated mainly for pleasure - On Osmolite 40 ML's an hour. Patient states she is unable to tolerate tube feeding boluses Bilateral hip pain Recurrent falls Past medical history significant for MS and spina bifida X-rays bilateral hips reviewed and negative PT eval Pain management Asthma- in remission COPD Tobacco use Discussed smoking cessation/counseling. Patient states she hasn't smoked since 2 days prior to admission. Reports she has no intentions of smoking again. DuoNeb's when necessary HLD - Cholesterol 201, LDL C106 - Recommend diet and exercise. Not in statin benefit group, ASCVD <5% DVT prophylaxis - Heparin sq Code Status Full code Discussed Condition With Discussed with patient, nurse Stable medically will sign off , reconsult as need Patient can be discharged regular psych unit she is stable medically. Charlotte Gonsalez MD Sep 10, 2016 16:59
[2016-09-10 17:30] VITALS: BP 128/61; PULSE 89; RESP 18; TEMP 98.8; O2SAT 96
[2016-09-10] MEDS: REMOVE OLD NICODERM (NICOTINE) PATCH T-DERMAL SCH (21:00)
[2016-09-10] MEDS: MIRTAZAPINE 15 MG TAB PO SCH (21:04)
[2016-09-11] MEDS: LORazepam 1 MG TAB PO PRN ×3 (03:13→20:30)
[2016-09-11 04:49] VITALS: BP 129/65; PULSE 78; RESP 16; TEMP 97.7; O2SAT 97
[2016-09-11] MEDS: METOCLOPRAMIDE HCL 10 MG TAB PO SCH ×4 (06:34→20:31)
[2016-09-11] MEDS: NICOTINE 21 MG/24 HR PATCH T-DERMAL SCH (09:00)
[2016-09-11] MEDS: busPIRone HCL 5 MG TAB PO SCH ×3 (09:23→17:43)
[2016-09-11] MEDS: carBAMazepine SUSP 200 MG/10 ML UDC PO SCH ×2 (09:23→20:33)
[2016-09-11] MEDS: ONDANSETRON ODT 4 MG TAB PO PRN (09:24)
--- NOTE | 2016-09-11 10:27 | PD.TTN ---
Present for Treatment Team Treatment Team Staff: Provider, Nurse, Psych Therapist, Occupational Therapist Patient Problems 1. Discharge planning 2. Medication compliance 3. Knowledge deficit 4. Lack of coping skills Progress Toward Goals Provider Input: Dr. Berg, treating psychiatrist is encouraging patient to participate with activities, and making minor adjustments with patient's medication to evaluate mood with hopes to have [facility] assess patient on 09/12/2016. Nurse Input: Savanna Garcia, RN reports that patient is eating little, taking her medication, and continues to report chronic pain. Psych Therapist Input: Counselor will fax a [facility] package, complete [id number] form and invite facility to assess patient for discharge. Occupational Therapist Input: Richard OT specialist will be setting up activities design to meet patient physical needs to encourage out of bed behavior. Documentation Teaching Recipient: Patient (Patient states she would like to go back to [facility], however she reports feeling concern about her sister, and has requested that counselor send a letter to her sister's home verse calling law enforcement for a well check. ) Mervat Orr [facility] Sep 11, 2016 10:26
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
[2016-09-11 16:00] VITALS: BP 111/60; PULSE 84; RESP 16; TEMP 96.4; O2SAT 95
[2016-09-11] MEDS: MIRTAZAPINE 15 MG TAB PO SCH (20:31)
[2016-09-11] MEDS: REMOVE OLD NICODERM (NICOTINE) PATCH T-DERMAL SCH (20:34)
[2016-09-12 05:18] VITALS: BP 100/58; PULSE 72; RESP 16; TEMP 97.6; O2SAT 95
[2016-09-12] MEDS: METOCLOPRAMIDE HCL 10 MG TAB PO SCH ×4 (07:28→21:25)
[2016-09-12 08:45] VITALS: BP 111/59; PULSE 83
[2016-09-12] MEDS: NICOTINE 21 MG/24 HR PATCH T-DERMAL SCH (09:11)
[2016-09-12] MEDS: LORazepam 1 MG TAB PO PRN ×3 (09:11→21:26)
[2016-09-12] MEDS: busPIRone HCL 5 MG TAB PO SCH ×3 (09:11→17:20)
[2016-09-12] MEDS: carBAMazepine SUSP 200 MG/10 ML UDC PO SCH ×2 (09:12→21:26)
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
[2016-09-12 16:33] VITALS: BP 122/66; PULSE 82
[2016-09-12 18:42] VITALS: BP 122/66; PULSE 82; RESP 16; TEMP 99.5; O2SAT 95
[2016-09-12] MEDS: REMOVE OLD NICODERM (NICOTINE) PATCH T-DERMAL SCH (21:00)
[2016-09-12] MEDS: MIRTAZAPINE 15 MG TAB PO SCH (21:25)
[2016-09-13 05:47] VITALS: BP 88/53; PULSE 64; RESP 15; TEMP 97.6; O2SAT 94
[2016-09-13] MEDS: METOCLOPRAMIDE HCL 10 MG TAB PO SCH ×4 (06:31→20:06)
[2016-09-13] MEDS: busPIRone HCL 5 MG TAB PO SCH ×3 (08:40→18:00)
[2016-09-13] MEDS: NICOTINE 21 MG/24 HR PATCH T-DERMAL SCH (08:41)
[2016-09-13] MEDS: carBAMazepine SUSP 200 MG/10 ML UDC PO SCH ×2 (08:41→20:08)
--- NOTE | 2016-09-13 10:26 | HHI.PYPN ---
Subjective Remarks Patient seen today for follow up, chart reviewed. As per nursing report patient had slept well last night and no behavioral issues. Patient seen with nurse and counselor and noted to be in good spirits, smiling this morning. Patient states that she had showered yesterday and was feeling much better. She reports having had a good day yesterday. Patient reports that she continues to have some nightmares overnight but that they are less intense. Patient reports less anxiety and worry about her sister as well as her benefits card which counselor/social studies teacher had helped her resolved. Patient at this time reports her mood as being "good", denies any suicidal or homicidal ideations denies any visual or auditory hallucinations; denied delusions. Patient reports feeling well and current treatment regimen denies any adverse drug reactions. Patient is looking forward for discharge and is currently awaiting services to be put in place. Review of Systems Except as stated in HPI: all other systems reviewed are Neg Other Denies any other somatic complaint Objective Alert: Yes [place]: Person, Place, Date Mood: Other ("good") Affect: Appropriate (smiling), Other Memory Intact: Immediate, Recent, Remote Hallucinations: Other (denies any hallucinations) Delusions: No Delusion Type: Other (None) Suicidal: Ideation (denies) Homicidal: Ideation (no homicidal ideation) Insight/Judgment Good insight, impulse control, and judgment Remarks Patient appears stated age, found sitting on hospital bed in hospital gown, good hygiene, good grooming, noted to be calm and cooperative in interview, fair eye contact. Speech normal rate tone and prosody, language fluid and spontaneous Vitals/IOs Vital Signs Date Time Temp Pulse Resp B/P Pulse Ox O2 Delivery O2 Flow Rate FiO2 09/13/16 05:47 97.6 64 15 88/53 94 Intake and Output 09/12/16 09/12/16 09/13/16 08:00 16:00 00:00 Intake Total 400 ml 1200 ml 960 ml Balance 400 ml 1200 ml 960 ml Assessment & Plan Problem List: (1) Adjustment disorder with mixed anxiety and depressed mood ICD Code: F43.23 Assessment & Plan Patient at this time reports feeling good, denies any current depressive symptoms at this time; denies any suicidality. Patient continues to have some worry about her sister's well-being along with nightmares but states that they are now less intense and are less distressful for her at this time. Patient is future oriented, goal directed denies any suicidality, manic or psychotic symptoms. Patient compliant with treatment. Patient to continue current medication regimen. Discharge planning in progress. Patient will require services after discharge and they're currently being explored at this time to be put in place. Supportive psychotherapy provided. Justification for Cont. Inpt. Patient at risk for decompensation of a lower level care at this time. Discharge Planning In process Request HC Surrog/Guard Advoc?: No Uli Berg MD Sep 13, 2016 10:26
[2016-09-13] MEDS: LORazepam 1 MG TAB PO PRN (16:00)
[2016-09-13] MEDS: ONDANSETRON ODT 4 MG TAB PO PRN (18:00)
[2016-09-13 18:50] VITALS: BP 127/63; PULSE 86; RESP 20; TEMP 98.7; O2SAT 96
[2016-09-13] MEDS: MIRTAZAPINE 15 MG TAB PO SCH (20:07)
[2016-09-13] MEDS: REMOVE OLD NICODERM (NICOTINE) PATCH T-DERMAL SCH (20:35)
[2016-09-14 05:43] VITALS: BP 104/52; PULSE 79; RESP 18; TEMP 98.1; O2SAT 97
[2016-09-14] MEDS: METOCLOPRAMIDE HCL 10 MG TAB PO SCH ×4 (06:22→21:00)
[2016-09-14] MEDS: busPIRone HCL 5 MG TAB PO SCH ×3 (09:00→17:32)
[2016-09-14] MEDS: NICOTINE 21 MG/24 HR PATCH T-DERMAL SCH (09:00)
[2016-09-14] MEDS: carBAMazepine SUSP 200 MG/10 ML UDC PO SCH ×2 (09:00→21:00)
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
[2016-09-14 18:00] VITALS: BP 115/62; PULSE 83; RESP 16; TEMP 98.2
[2016-09-14 18:03] VITALS: BP 104/52; PULSE 79; RESP 18; TEMP 98.1; O2SAT 97
[2016-09-14] MEDS: LORazepam 1 MG TAB PO PRN (20:14)
[2016-09-14] MEDS: REMOVE OLD NICODERM (NICOTINE) PATCH T-DERMAL SCH (21:00)
[2016-09-14] MEDS: MIRTAZAPINE 15 MG TAB PO SCH (21:00)
[2016-09-14] MEDS: ONDANSETRON ODT 4 MG TAB PO PRN (21:49)
[2016-09-15 05:45] VITALS: BP 100/57; PULSE 74; RESP 15; TEMP 97; O2SAT 95
[2016-09-15] MEDS: METOCLOPRAMIDE HCL 10 MG TAB PO SCH ×2 (06:34→10:33)
[2016-09-15] MEDS: busPIRone HCL 5 MG TAB PO SCH ×2 (07:59→13:00)
[2016-09-15] MEDS: carBAMazepine SUSP 200 MG/10 ML UDC PO SCH (07:59)
[2016-09-15] MEDS: NICOTINE 21 MG/24 HR PATCH T-DERMAL SCH (08:00)
--- NOTE | 2016-09-15 10:52 | HHI.PYPN ---
Subjective Remarks Patient seen for follow-up, chart reviewed. As per nursing report patient reported some some pain around her GJ tube sites morning but took pain medications as scheduled. Patient has been pleasant, she felt a little bit overwhelmed this morning but mood has been good denies suicidal ideations. Patient seen with nurse, found lying in hospital bed, calm and cooperative in interview. Patient states that she had some pain disorder and but had taken her medications through his way further take effect. Warts a yesterday she had a good day which she was able to go outside, had spiritual group yesterday which she enjoyed, and plans on continuing participate in activities today. To that her mood has been "okay", denies feeling sad or depressed, reports having slept well last night, good appetite, good energy and concentration; denies having suicidal ideations or perceptual disturbances. Patient continues to be worried about her sister but less so as she has been in contact with her and reports that her sister agreed to help take care of her while services up in the place. Review of Systems Except as stated in HPI: all other systems reviewed are Neg Objective Alert: Yes [place]: Person, Place, Date Mood: Calm Affect: Appropriate (smiling) Memory Intact: Immediate, Recent, Remote Hallucinations: Other (denies any hallucinations) Delusions: No Delusion Type: Other (None) Suicidal: Ideation (denies) Homicidal: Ideation (no homicidal ideation) Insight/Judgment Fair insight, impulse control and judgment Vitals/IOs Vital Signs Date Time Temp Pulse Resp B/P Pulse Ox O2 Delivery O2 Flow Rate FiO2 09/15/16 05:45 97.0 74 15 100/57 95 Intake and Output 09/14/16 09/14/16 09/15/16 08:00 16:00 00:00 Intake Total 400 ml 1500 ml 1080 ml Balance 400 ml 1500 ml 1080 ml Assessment & Plan Problem List: (1) Adjustment disorder with mixed anxiety and depressed mood ICD Code: F43.23 Assessment & Plan Estimated LOS: 2-3 days. Patient at this time denies any active depressive symptoms, noted to be in good spirits, future oriented and denies any suicidal ideations. Patient concerned about services being placed after discharge but stated that her sister would help care for her while that is being established. Patient reports responding well to treatment denies any adverse drug reactions. Patient to continue current treatment. Team well continue to seek services as well as confirm with sister that she is able to help the patient while waiting for services to be established. Discharge planning in progress Justification for Cont. Inpt. Patient at risk for decompensation at lower level of care Discharge Planning In progress Request HC Surrog/Guard Advoc?: No Uli Berg MD Sep 15, 2016 10:52
--- NOTE | 2016-09-15 11:29 | PD.WCN.NOT ---
Wound Consult Description: Abdominal skin erosion/irritation from G tube. Communicated with: RN Jose Martin and Doctor Otis Recommendation: Please cleanse small draining wound from old G tube site with normal saline or wound cleanser and pat dry. Please apply small piece of Maxorb II over draining area .Encrust skin erosion/ irritation around draining area with stoma powder and skin prep Daily. Encrust the skin by applying Stoma powder first and wiping off excess, then apply skin prep and let dry. Repeat process 1 time. Secure maxorb II in place with dry 4x4 gauze pad and tape. Change dressing daily or PRN if saturated or dislodged. Additional Information: Patient seen on 4th floor psych unit for follow up of Abdominal skin erosion/ irritation from G tube site. Removed gauze dressing in place to reveal small wound from old G tube site measuring ~0.1cm x ~0.3cm that is draining occasionally. Periwound is noted with skin erosion/ irritation from drainage. Recommended Calazime barrier cream previously for skin erosion/ irritation and dry gauze if draining.Patient still complains of burning with drainage.Cleansed area with wound cleanser and pat dry. Applied small piece Maxorb II over wound bed only. Applied Calazime barrier cream to periwound. Covered with dry 4x4 gauze pads secured with paper tape. Skin prep applied to skin before applying paper tape to skin. Wound care recommendations noted above for in home. Nerissa Meléndez [facility] Sep 15, 2016 11:29
[2016-09-15] MEDS ORDERED: [UNRECOGNIZED DRUG - CODE] PO (12:46)
[2016-09-15] MEDS ORDERED: BUSP5TAB PO (12:46)
[2016-09-15] MEDS ORDERED: MIRTA15 PO (12:47)
[2016-09-15] MEDS ORDERED: OXYC-392 PO (12:47)
[2016-09-15] MEDS ORDERED: METO10TA PO (12:47)
[2016-09-15] MEDS ORDERED: TIZA4 G-TUBE (12:47)
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
== END 2016-09-15 15:45 | disposition home health service (06) | DRG 882 ==
LOC: H4EA 18:47
PROVIDERS: ADMIT Student in an Organized Health Care Education/Training Program; ATTEND Student in an Organized Health Care Education/Training Program
DX: F43.23 Adjustment disorder with mixed anxiety and depressed mood (principal); M32.9 Systemic lupus erythematosus, unspecified; G35 Multiple sclerosis; K31.84 Gastroparesis; L03.311 Cellulitis of abdominal wall; R45.851 Suicidal ideations; F22 Delusional disorders; F12.90 Cannabis use, unspecified, uncomplicated; G80.9 Cerebral palsy, unspecified; Q05.9 Spina bifida, unspecified; J44.9 Chronic obstructive pulmonary disease, unspecified; E78.5 Hyperlipidemia, unspecified; F17.200 Nicotine dependence, unspecified, uncomplicated; F31.9 Bipolar disorder, unspecified; F43.10 Post-traumatic stress disorder, unspecified; G89.29 Other chronic pain; K59.00 Constipation, unspecified; Z51.5 Encounter for palliative care; Z62.810 Personal history of physical and sexual abuse in childhood; Z66 Do not resuscitate; Z79.899 Other long term (current) drug therapy; Z91.5 Personal history of self-harm; R29.6 Repeated falls
CPT/HCPCS: 80048; 80061; 83036

== ENCOUNTER 2016-10-01 10:34 | Emergency (ER) | payer OTHER ==
[~2016-10-01 10:34] MED LIST changes: -BUSP15TA PO; +BUSP5TAB PO; -CARB100S2 PO; +MIRTA15 PO; +OXYC-392 PO; +TIZA4 G-TUBE; -TIZA4CAP3 G-TUBE; +[UNRECOGNIZED DRUG - CODE] PO
--- NOTE | 2016-10-01 13:02 | PD ---
HPI Chief Complaint: Abdominal Pain Time Seen by Provider: 12:52 Travel History International Travel<30 days: No Contact w/Intl Traveler<30days: No History of Present Illness HPI Patient is a 46-year-old female presents emergency department for evaluation of malnourishment. She states she's also been having some chronic abdominal pain. She states that she was just released from the hospital after her GJ tube dislodged. She states that she was given prescriptions for her tube feeding but she has not had any tube feedings in 3 weeks because of insurance reasons and she thinks that she is going through the cracks. She states that her abdominal pain is at baseline. She is concerned because home health and he would come and see her until she gets the tube feedings. She followed up with her primary care physician and stated that she should return to the emergency department for further evaluation. She denies any fevers denies any weight loss. PFSH Past Medical History Asthma: Yes Autoimmune Disease: Yes (MS, Lupus ) Anxiety: Yes Depression: Yes Cardiovascular Problems: No COPD: Yes Gastrointestinal Disorders: Yes (Gastroparesis with G/J tube placement ) Genitourinary: Yes (Frequent UTI) Headaches: Yes Musculoskeletal: Yes (MS) Neurologic: Yes (Spina Bifida) Psychiatric: Yes (PTSD) Respiratory: Yes (ASTHMA, COPD) Migraines: Yes Pancreatitis: Yes Seizures: Yes (Last Seizure 1 year ago) : 4 Para: 4 Miscarriage: 0 Tubal Ligation: Yes Past Surgical History Abdominal Surgery: Yes (GASTRIC TUBE) Genitourinary Surgery: Yes (G/J tube) Other Surgery: Yes (Lap Georgie; ) Social History Alcohol Use: No Tobacco Use: Yes Substance Use: Yes (MJ) Allergies-Medications (Allergen,Severity, Reaction): Coded Allergies: Interferons (Unverified Allergy, Severe, ANAPHALACTIC, 09/26/16) cefazolin (Unverified Allergy, Severe, RASH, 09/26/16) ciprofloxacin (Unverified Allergy, Severe, PANCREATITIS, 09/26/16) diclofenac (Unverified Allergy, Severe, GI, 09/26/16) etodolac (Unverified Allergy, Severe, GI, 09/26/16) flurbiprofen (Unverified Allergy, Severe, GI, 09/26/16) ibuprofen (Unverified Allergy, Severe, GI, 09/26/16) indomethacin (Unverified Allergy, Severe, GI, 09/26/16) interferon beta-1a (Unverified Allergy, Severe, ANAPHALACTIC, 09/26/16) ketoprofen (Unverified Allergy, Severe, GI, 09/26/16) ketorolac (Unverified Allergy, Severe, GI, 09/26/16) latex (Unverified Allergy, Severe, ANAPHALACTIC, 09/26/16) naproxen (Unverified Allergy, Severe, GI, 09/26/16) oxaprozin (Unverified Allergy, Severe, GI, 09/26/16) penicillin G (Unverified Allergy, Severe, ANAPHALACTIC, 09/26/16) theophylline (Unverified Allergy, Severe, TACHYCARDIA, 09/26/16) tramadol (Unverified Allergy, Severe, GI, 09/26/16) Fish Containing Products (Unverified Allergy, Intermediate, RASH, 09/26/16) acetaminophen (Unverified Allergy, Intermediate, LIVER, 09/26/16) aspirin (Unverified Allergy, Intermediate, RASH, 09/26/16) gabapentin (Unverified Allergy, Intermediate, HIVES, 09/26/16) *MDRO Multi-Drug Resistant Organism (Verified Adverse Reaction, Unknown, ) 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 Uncoded Allergies: COPAXONE (Allergy, Severe, ANAPHALACTIC, 07/26/15) Reported Meds & Prescriptions Reported Meds & Active Scripts Active Zanaflex (Tizanidine HCl) 4 Mg Tab 4 Mg G-TUBE BID Oxycodone (Oxycodone HCl) 5 Mg Tab 5 Mg PO Q6H Mirtazapine 15 Mg Tab 30 Mg PO HS Carbamazepine 200 Mg/10 Ml Oral.susp 100 Mg PO BID Buspirone (Buspirone HCl) 5 Mg Tab 15 Mg PO TID Reported Tegretol Liq (Carbamazepine) 100 Mg/5 Ml Susp 100 Mg PO TID Sulfamethoxazole-Tmp Ss Tablet (Sulfamethoxazole/Trimethoprim) 400 Mg-80 Mg Tablet 800 G-TUBE BID NEB Metoclopramide (Metoclopramide HCl) 10 Mg Tab 10 Mg G-TUBE ACHS Proventil Hfa 6.7 GM Inh (Albuterol Sulfate) 90 Mcg/Act Aer 2 Puff INH Q6H PRN Dilaudid (Hydromorphone HCl) 4 Mg Tab 4 Mg G-TUBE Q4H Nitrostat SL (Nitroglycerin) 0.4 Mg Subl 0.4 Mg SL DIRECTED PRN 1 tablet under the tongue as needed for chest pain. Repeat every 5 minutes for a total of 3 DOSES or call 911 if NO relief. Tegretol Liq (Carbamazepine) 100 Mg/5 Ml Susp 100 Mg G-TUBE BID NEB Prozac (Fluoxetine HCl) 10 Mg Cap 10 Mg PO DAILY Phenergan (Promethazine HCl) 25 Mg/Ml Vial 12.5 IM Q8HR PRN Prochlorperazine Maleate 10 Mg Tab 10 Mg PO HS Phenergan Supp (Promethazine HCl) 12.5 Mg Supp 12.5 Mg RECTAL Q6H PRN Restoril (Temazepam) 7.5 Mg Cap 7.5 Mg PO HS Zanaflex (Tizanidine HCl) 4 Mg Cap 4 Mg PO BID Xanax (Alprazolam) 0.5 Mg Tab 0.5 Mg PO Q4H PRN Xanax (Alprazolam) 0.25 Mg Tab 0.5 Mg PO Q8H Proair Respiclick Inh (Albuterol Sulfate) 90 Mcg/Act Aerp 2 Puff INH Q6H PRN Duoneb (Ipratropium-Albuterol Neb) 0.5-2.5 Mg/3 Ml Neb 1 Nebule INH Q6HR NEB Dilaudid (Hydromorphone HCl) 2 Mg Tab 2 Mg PO Q4H Dilaudid (Hydromorphone HCl) 2 Mg Tab 2 Mg PO Q4H PRN [reglan] Lorazepam 1 Mg Tab 1 Mg PO BID PRN Review of Systems Except as stated in HPI: all other systems reviewed are Neg Physical Exam Narrative GENERAL: I see well-developed well-nourished female with no convincing evidence of malnourishment, she is edentulous however. SKIN: Focused skin assessment warm/dry. HEAD: Atraumatic. Normocephalic. EYES: Pupils equal and round. No scleral icterus. No injection or drainage. ENT: No nasal bleeding or discharge. Mucous membranes pink and moist. NECK: Trachea midline. No JVD. CARDIOVASCULAR: Regular rate and rhythm. No murmur appreciated. RESPIRATORY: No accessory muscle use. Clear to auscultation. Breath sounds equal bilaterally. GASTROINTESTINAL: Abdomen soft, non-tender, nondistended. Hepatic and splenic margins not palpable. GJ tube in place. MUSCULOSKELETAL: No obvious deformities. No clubbing. No cyanosis. No edema. NEUROLOGICAL: Awake and alert. No obvious cranial nerve deficits. Motor grossly within normal limits. Normal speech. PSYCHIATRIC: Appropriate mood and affect; insight and judgment normal. Data Data Last Documented VS Vital Signs Date Time Temp Pulse Resp B/P (MAP) Pulse Ox O2 Delivery O2 Flow Rate FiO2 10/01/16 15:41 10/01/16 14:36 88 17 97 Room Air Orders Orders Basic Metabolic Profile, Op (10/01/16 UNK) Complete Blood Count With Diff (10/01/16 UNK) Oxycodone (Roxicodone) (10/01/16 14:30) Labs Laboratory Tests Test 10/01/16 00:00 White Blood Count 8.3 TH/MM3 Red Blood Count 5.19 MIL/MM3 Hemoglobin 16.3 GM/DL Hematocrit 46.4 % Mean Corpuscular Volume 89.5 FL Mean Corpuscular Hemoglobin 31.4 PG Mean Corpuscular Hemoglobin Concent 35.1 % Red Cell Distribution Width 14.2 % Platelet Count 311 TH/MM3 Mean Platelet Volume 8.7 FL Neutrophils (%) (Auto) 66.0 % Lymphocytes (%) (Auto) 25.7 % Monocytes (%) (Auto) 5.2 % Eosinophils (%) (Auto) 2.4 % Basophils (%) (Auto) 0.7 % Neutrophils # (Auto) 5.5 TH/MM3 Lymphocytes # (Auto) 2.1 TH/MM3 Monocytes # (Auto) 0.4 TH/MM3 Eosinophils # (Auto) 0.2 TH/MM3 Basophils # (Auto) 0.1 TH/MM3 CBC Comment DIFF FINAL Differential Comment Sodium Level 140 MEQ/L Potassium Level 3.2 MEQ/L Chloride Level 104 MEQ/L Carbon Dioxide Level 27.4 MEQ/L Anion Gap 9 MEQ/L Blood Urea Nitrogen 11 MG/DL Creatinine 0.78 MG/DL Estimat Glomerular Filtration Rate 80 ML/MIN Fasting Glucose 100 MG/DL Calcium Level 9.1 MG/DL [facility] Medical Decision Making Medical Screen Exam Complete: Yes Emergency Medical Condition: Yes Differential Diagnosis Malnourishment, ketosis, dehydration, electrolyte abnormality, chronic abdominal pain. Narrative Course Patient roomed emergency department, she has a benign abdominal exam at this time. She was given pain medicine, electrolytes within normal limits. No acute kidney injury. At this time the patient was referred to case management who informs me that they have worked this patient multiple times in the past and she should be able to get everything she needs through her home health agency. She was provided the phone number of this agency and recommended she follow up with her primary care physician as soon as possible. She is stable for discharge. Diagnosis Primary Impression: Abdominal pain Additional Impression: gastroparesis Additional Instructions: Call [facility] [phone] Disposition: 01 DISCHARGE HOME Condition: Stable Alex Plunkett MD Oct 01, 2016 13:02
[2016-10-01 13:10] LABS: AUTOMATED NEUTROPHIL # 5.5 TH/MM3 (1.8-7.7); BASOPHIL # 0.1 TH/MM3 (0-0.2); BASOPHIL % 0.7 % (0.0-2.0); EOSINOPHIL # 0.2 TH/MM3 (0-0.4); EOSINOPHIL % 2.4 % (0.0-4.0); HEMATOCRIT 46.4 % (35.0-46.0); HEMO FLAGS DIFF FINAL; LYMPH % 25.7 % (9.0-44.0); LYMPHOCYTE # 2.1 TH/MM3 (1.0-4.8); MEAN CELL VOLUME 89.5 FL (80.0-100.0); MEAN CORPUSCULAR HEMOGLOBIN 31.4 PG (27.0-34.0); MEAN CORPUSCULAR HGB CONC 35.1 % (32.0-36.0); MONO % 5.2 % (0.0-8.0); PLATELET COUNT 311 TH/MM3 (150-450); RED BLOOD COUNT 5.19 MIL/MM3 (4.00-5.30); RED CELL DISTRIBUTION WIDTH 14.2 % (11.6-17.2); WHITE BLOOD COUNT 8.3 TH/MM3 (4.0-11.0)
[2016-10-01 13:14] LABS: BICARBONATE 27.4 MEQ/L (21.0-32.0); POTASSIUM 3.2 MEQ/L (3.5-5.1)
[2016-10-01 14:36] VITALS: BP 117/58; PULSE 88; RESP 17; O2SAT 97
== END 2016-10-01 15:42 | disposition home or self-care (01) ==
LOC: NEPE 10:34
DX: K31.84 Gastroparesis (principal); G35 Multiple sclerosis; M32.9 Systemic lupus erythematosus, unspecified; J45.909 Unspecified asthma, uncomplicated; Q05.9 Spina bifida, unspecified; Z93.4 Other artificial openings of gastrointestinal tract status
CPT/HCPCS: 80048; 85025; 99283

== ENCOUNTER 2017-10-31 10:54 | Observation (INO) ==
[2017-10-31] MEDS ORDERED: Morphine Sulfate Inj 8 MG/ML Vial IV.PUSH ONE (11:35)
[2017-10-31] MEDS ORDERED: Pantoprazole Inj 40 MG Vial IV.PUSH ONE (11:35)
[2017-10-31] MEDS ORDERED: Sod Chloride 0.9% Inj 1,000 ML IV.SIG ONE (11:35)
--- NOTE | 2017-10-31 11:55 | ED ---
HPI General Chief Complaint: Abdominal Pain Stated Complaint: Abd pain Time Seen by Provider: 10/31/17 11:11 Source: patient Mode of arrival: EMS Limitations: no limitations History of Present Illness HPI narrative: Patient is a 47-year-old female that presents with a CC of "abdominal pain" that started last night. The patient states that the pain is located in the epigastric region and has been a constant sharp pain. The patient states that the pain is rated a 9/10 on a pain scale. The patient reports a medical history significant for gastroparesis and chronic pancreatitis but states this pain is more intense. The patient notes that nothing has made the pain better. The patient also states that this morning she has had 3-4 dark stools and she has been vomiting since this morning. The patient states that she feels fatigued. She does complain of some chest pain and shortness of breath that she associates with the epigastric pain. The patient also states the on Sunday she was bending down and fell hitting the left side of her head on a hard piece of furniture within her home. Patient states that the left side of her head hurts. She states that she has had some dizziness upon standing since the fall. Related Data Allergies Allergy/AdvReac Type Severity Reaction Status Date / Time cefazolin Allergy Severe RASH Unverified 10/31/17 12:37 ciprofloxacin Allergy Severe PANCREATITI Unverified 10/31/17 12:37 S diclofenac Allergy Severe GI Unverified 10/31/17 12:37 etodolac Allergy Severe GI Unverified 10/31/17 12:37 flurbiprofen Allergy Severe GI Unverified 10/31/17 12:37 ibuprofen Allergy Severe GI Unverified 10/31/17 12:37 indomethacin Allergy Severe GI Unverified 10/31/17 12:37 interferon beta-1a Allergy Severe ANAPHALACTI Unverified 10/31/17 12:37 C Interferons Allergy Severe ANAPHALACTI Unverified 10/31/17 12:37 C ketoprofen Allergy Severe GI Unverified 10/31/17 12:37 ketorolac Allergy Severe GI Unverified 10/31/17 12:37 latex Allergy Severe ANAPHALACTI Unverified 10/31/17 12:37 C naproxen Allergy Severe GI Unverified 10/31/17 12:37 oxaprozin Allergy Severe GI Unverified 10/31/17 12:37 penicillin G Allergy Severe ANAPHALACTI Unverified 10/31/17 12:37 C theophylline Allergy Severe TACHYCARDIA Unverified 10/31/17 12:37 tramadol Allergy Severe GI Unverified 10/31/17 12:37 acetaminophen Allergy Intermediate LIVER Unverified 10/31/17 12:37 aspirin Allergy Intermediate RASH Unverified 10/31/17 12:37 Fish Containing Products Allergy Intermediate RASH Unverified 10/31/17 12:37 gabapentin Allergy Intermediate HIVES Unverified 10/31/17 12:37 COPAXONE Allergy Severe ANAPHALACTI Uncoded 10/31/17 12:37 C *MDRO Multi-Drug Resistant AdvReac Unknown no reaction Uncoded 10/31/17 12:37 Organism Review of Systems ROS: all other systems reviewed are negative [facility] Medical History Medical History Anxiety (Acute) Cerebral palsy (Acute) Chronic pancreatitis (Acute) Depression (Acute) Fistula (Acute) Gastroparesis (Acute) Hypokalemia (Acute) Intestinal perforation (Acute) Lupus (systemic lupus erythematosus) (Acute) Multiple sclerosis (Acute) PTSD (post-traumatic stress disorder) (Acute) Panic attacks (Acute) Spina bifida (Acute) Surgical History Surgical History H/O cardiac catheterization (Acute) H/O tubal ligation (Acute) History of bowel resection (Acute) History of colposcopy with cervical biopsy (Acute) Hx of cholecystectomy (Acute) Social History Social History Substance History: Active Abuse Second Hand Smoke Exposure: No Smoking Status: Current every day smoker Tobacco Type: Cigarettes How Often Do You Have a Drink Containing Alcohol: Never Recent Travel in [place] within the Last 8 Weeks: No Recent Out of Country Travel within the Last 8 Weeks: No Substance Abuse Detail Marijuana: Substance Use Status: Active Route Used Substance Abuse: Inhalation Immunization History Tetanus Immunization: Unsure Hx Influenza Vaccine This Season: No Exam Narrative Exam Narrative: GENERAL: SKIN: Warm and dry. HEAD: Atraumatic. Normocephalic. EYES: Pupils equal and round. No scleral icterus. No injection or drainage. ENT: No nasal bleeding or discharge. Mucous membranes pink and moist. Tongue is midline. No uvula deviation. NECK: Trachea midline. No JVD. CARDIOVASCULAR: Regular rate and rhythm. RESPIRATORY: No accessory muscle use. Clear to auscultation. Breath sounds equal bilaterally. GASTROINTESTINAL: Abdomen soft, nVery tender to touch on the epigastric area but also on the lower quadrants, nondistended. Hepatic and splenic margins not palpable. MUSCULOSKELETAL: Extremities without clubbing, cyanosis, or edema. No obvious deformities. Full ROM of the upper and lower extremities bilaterally. 2+ pulses bilaterally. NEUROLOGICAL: Awake and alert. No obvious cranial nerve deficits. Motor grossly within normal limits. Five out of 5 muscle strength in the arms and legs. Normal speech. PSYCHIATRIC: Appropriate mood and affect; insight and judgment normal. Procedures Hemaprompt Stool Procedural Steps Taken: specimen placed in appropriate test area, developer placed on specimen and control areas and controls appropriately positive and negative Hemaprompt Stool Result: negative Course Initial Documented Vital Signs Pulse Rate 78 10/31/17 10:59 Respiratory Rate 18 10/31/17 10:59 Blood Pressure 137/68 10/31/17 10:59 Pulse Oximetry 96 10/31/17 10:59 Last Documented Vital Signs Pulse Rate 80 10/31/17 15:10 Respiratory Rate 18 10/31/17 15:10 Blood Pressure 126/73 10/31/17 15:10 Pulse Oximetry 99 10/31/17 15:10 Medical Decision Making [facility] Narrative Medical decision making narrative: 47-year-old female the presents to the ED for evaluation of abdominal pain nausea vomiting and possible GI bleed. Patient was properly examined and was found to have signs and symptoms concerning with abdominal discomfort with GI bleed. Labs and imaging order. She does have significant chronic medical history. Labs and imaging order. Patient given IV pain medications and antiemetics. Fluids given. Labs and imaging showed no sign of acute disease. Patietn still in some discomfort but no complains of pain to her chest which feels similar to when she had a heart cath 2-3 years ago. troponin and CKMB as well as ekg ordered. This was negative. My attending Dr Shepherd was made aware of findings and patient symptoms and recommends admission to medicine for intractable abdominal pain and serial cardiac enzymes to rule out heart disease. Spoke with mid-level for [facility] who agrees with obs admission to Dr Warren. Patient agrees with plan. Medical Screen Exam Complete: Yes Emergency Medical Condition: Yes Differential Diagnosis Differential Diagnosis: Gastroparesis versus chronic pain versus GI bleed versus peptic ulcer disease versus Pancreatitis Medical Records Medical records reviewed: Yes I reviewed the patient's medical records. Lab Data Lab results reviewed: Yes I reviewed the patient's lab results. Result diagrams: 10/31/17 11:45 10/31/17 11:45 Lab Results 10/31/17 10/31/17 10/31/17 Range/Units 11:45 11:45 11:45 WBC 8.5 (4.0-11.0) th/mm3 RBC 4.82 (4.00-5.30) mil/mm3 Hgb 14.9 (11.6-15.3) gm/dL Hct 42.1 (35.0-46.0) % MCV 87.2 (80.0-100.0) fL MCH 31.0 (27.0-34.0) pg MCHC 35.5 (32.0-36.0) % RDW 17.0 (11.6-17.2) % Plt Count 290 (150-450) th/mm3 MPV 8.6 (7.0-11.0) fL Neut % (Auto) 59.5 (16.0-70.0) % Lymph % (Auto) 30.5 (9.0-44.0) % [place] % (Auto) 5.5 (0.0-8.0) % Eos % (Auto) 3.5 (0.0-4.0) % Baso % (Auto) 1.0 (0.0-2.0) % Neut # (Auto) 5.0 (1.8-7.7) th/mm3 Lymph # (Auto) 2.6 (1.0-4.8) th/mm3 [place] # (Auto) 0.5 (0.0-0.9) th/mm3 Eos # (Auto) 0.3 (0.0-0.4) th/mm3 Baso # (Auto) 0.1 (0.0-0.2) th/mm3 WBC Differential . Differential Comment Auto diff final Sodium 139 (136-145) meq/L Potassium 3.9 (3.5-5.1) meq/L Chloride 104 (98-107) meq/L Carbon Dioxide 26.3 (21.0-32.0) meq/L Anion Gap 9 (5-15) meq/L BUN 12 (7-18) mg/dL Creatinine 0.74 (0.50-1.00) mg/dL Estimated GFR 85 L (>89) mL/min Random Glucose 86 (74-106) mg/dL Lactic Acid 0.6 (0.4-2.0) mmol/L Calcium 8.4 L (8.5-10.1) mg/dL Total Bilirubin 0.4 (0.2-1.0) mg/dL AST 10 L (15-37) U/L ALT 13 (10-53) U/L Alkaline Phosphatase 81 (45-117) U/L Total Creatine Kinase (26-192) U/L Troponin I (0.02-0.05) ng/mL Total Protein 7.1 (6.4-8.2) g/dL Albumin 3.5 (3.4-5.0) g/dL Lipase 116 (73-393) U/L Blood Type Blood Type Recheck Antibody Screen 10/31/17 10/31/17 Range/Units 11:45 11:45 WBC (4.0-11.0) th/mm3 RBC (4.00-5.30) mil/mm3 Hgb (11.6-15.3) gm/dL Hct (35.0-46.0) % MCV (80.0-100.0) fL MCH (27.0-34.0) pg MCHC (32.0-36.0) % RDW (11.6-17.2) % Plt Count (150-450) th/mm3 MPV (7.0-11.0) fL Neut % (Auto) (16.0-70.0) % Lymph % (Auto) (9.0-44.0) % [place] % (Auto) (0.0-8.0) % Eos % (Auto) (0.0-4.0) % Baso % (Auto) (0.0-2.0) % Neut # (Auto) (1.8-7.7) th/mm3 Lymph # (Auto) (1.0-4.8) th/mm3 [place] # (Auto) (0.0-0.9) th/mm3 Eos # (Auto) (0.0-0.4) th/mm3 Baso # (Auto) (0.0-0.2) th/mm3 WBC Differential Differential Comment Sodium (136-145) meq/L Potassium (3.5-5.1) meq/L Chloride (98-107) meq/L Carbon Dioxide (21.0-32.0) meq/L Anion Gap (5-15) meq/L BUN (7-18) mg/dL Creatinine (0.50-1.00) mg/dL Estimated GFR (>89) mL/min Random Glucose (74-106) mg/dL Lactic Acid (0.4-2.0) mmol/L Calcium (8.5-10.1) mg/dL Total Bilirubin (0.2-1.0) mg/dL AST (15-37) U/L ALT (10-53) U/L Alkaline Phosphatase (45-117) U/L Total Creatine Kinase 75 (26-192) U/L Troponin I Less than 0.02 L (0.02-0.05) ng/mL Total Protein (6.4-8.2) g/dL Albumin (3.4-5.0) g/dL Lipase (73-393) U/L Blood Type A Positive Blood Type Recheck Required Antibody Screen Negative Imaging Data Attestation: I personally reviewed and interpreted this imaging study as follows : Radiologist's impression: Abdomen/Pelvis CT 10/31/17 11:35 CONCLUSION: 1. Mild extrahepatic and central intrahepatic biliary ductal dilatation of indeterminate etiology. Common bile duct measures 11 mm in greatest caliber. Correlation with alkaline phosphatase and bilirubin levels is suggested. This could be related to reservoir phenomenon status post cholecystectomy. 2. Mild hepatosplenomegaly. 3. Fluid filled mildly dilated stable loop of small bowel within left upper quadrant which is unchanged compared to previous examination in August 2016 and may be related to altered post-surgical anatomy in this location. Chest X-Ray 10/31/17 11:35 CONCLUSION: Negative examination. Head CT 10/31/17 12:37 CONCLUSION: 1. Negative CT Head non contrast. . ECG Data Attestation: I personally reviewed and interpreted this ECG as follows: Prior ECG tracings: not available for review Interpretation: EKG shows sinus tachycardia with vent rate of 127, TX int of 151 ms, NO ST elevation or sign of ischemia. Read by me and attending Dr Shepherd. Discharge Plan Physicians Team ED Provider: Frandy Shepherd ED Midlevel Provider: Rey Rizo Primary Care Provider: Primary Care Celine Huddleston Attending Provider: [place] Discharge Interventions Interventions: Vital Signs Last Done: 10/31/17 15:10 Status ED Status: Admitted Observation Patient
[2017-10-31 11:58] LABS: Baso # (Auto) 0.1 th/mm3 (0.0-0.2); Eos # (Auto) 0.3 th/mm3 (0.0-0.4); Eos % (Auto) 3.5 % (0.0-4.0); Hematocrit 42.1 % (35.0-46.0); Hemoglobin 14.9 gm/dL (11.6-15.3); Lymph # (Auto) 2.6 th/mm3 (1.0-4.8); Lymph % (Auto) 30.5 % (9.0-44.0); Mean Corpuscular HGB Conc 35.5 % (32.0-36.0); Mean Corpuscular Volume 87.2 fL (80.0-100.0); Mean Platelet Volume 8.6 fL (7.0-11.0); Mono # (Auto) 0.5 th/mm3 (0.0-0.9); Mono % (Auto) 5.5 % (0.0-8.0); Neut % (Auto) 59.5 % (16.0-70.0); Platelet Count 290 th/mm3 (150-450); Red Blood Count 4.82 mil/mm3 (4.00-5.30); White Blood Count 8.5 th/mm3 (4.0-11.0)
--- NOTE | 2017-10-31 12:01 | XR ---
EXAM DATE: 10/31/2017 11:58 AM EDT AGE/SEX: 47 years / Female INDICATIONS: Chest and abdominal pain for three days. CLINICAL DATA: This is the patient's initial encounter. Patient reports that signs and symptoms have been present for 3 days and indicates a pain score of 7/10. MEDICAL/SURGICAL HISTORY: . Chronic obstructive pulmonary disease. Pancreatitis. Lupus. . Tu bal ligation. Gastric tube. [place] [facility] [place]. . FINDINGS: A single AP view of the chest demonstrates the lungs to be symmetrically aerated without evidence of mass, infiltrate or effusion. The cardiomediastinal contours are unremarkable. Osseous structures a re intact. CONCLUSION: Negative examination. Electronically signed by: Alex Carmichael MD 10/31/2017 12:00 PM EDT
[2017-10-31 12:21] LABS: Alanine Aminotransferase 13 U/L (10-53)
[2017-10-31 12:22] LABS: Albumin 3.5 g/dL (3.4-5.0); Alkaline Phosphatase 81 U/L (45-117); Anion Gap 9 meq/L (5-15); Aspartate Aminotransferase 10 U/L (15-37); Blood Urea Nitrogen 12 mg/dL (7-18); Calcium 8.4 mg/dL (8.5-10.1); Carbon Dioxide 26.3 meq/L (21.0-32.0); Chloride 104 meq/L (98-107); Glomerular Filtration Rate 85 mL/min (>89); Glucose,Random 86 mg/dL (74-106); Lipase 116 U/L (73-393); Sodium 139 meq/L (136-145); Total Protein 7.1 g/dL (6.4-8.2)
[2017-10-31 12:23] LABS: Potassium 3.9 meq/L (3.5-5.1)
[2017-10-31] MEDS ORDERED: Morphine Inj 4 MG/ML Vial IV.PUSH ONE ×3 (12:45→15:41)
--- NOTE | 2017-10-31 14:36 | CT ---
EXAM DATE: 10/31/2017 2:34 PM EDT AGE/SEX: 47 years / Female INDICATIONS: Patient complains of headache. CLINICAL DATA: This is the patient's initial encounter. Patient reports that signs and symptoms have been present for 1 day and indicates a pain score of 9/10. MEDICAL/SURGICAL HISTORY: Pancreatitis. Gastroparesis. Lupus. MS, cerebral palsy Cholecystectom y. bowel resection RADIATION DOSE: 43.85 CTDI (mGy) COMPARISON: No prior exams available for comparison. TECHNIQUE: CT of the head without contrast. Using automated exposure control and adjustment of the mA and/or kV according to patient size, radiation dose was kept as low as reasonably achievable to ob tain optimal diagnostic quality images. DICOM format image data is available electronically for revi ew and comparison. FINDINGS: Cerebrum: The ventricles are normal for age. No evidence of midline shift, mass lesion, hemorrhage or acute infarction. No extraaxial fluid collections are seen. Posterior Fossa: The cerebellum and brainstem are intact. The 4th ventricle is midline. The cerebe llopontine angle is unremarkable. Extracranial: The visualized portion of the orbits is intact. Skull: The calvaria is intact. No evidence of skull fracture. CONCLUSION: 1. Negative CT Head non contrast. . Electronically signed by: Alex Carmichael MD 10/31/2017 2:35 PM EDT
--- NOTE | 2017-10-31 15:27 | CT ---
EXAM DATE: 10/31/2017 3:12 PM EDT AGE/SEX: 47 years / Female INDICATIONS: Patient complains of abdominal pain and vomiting. CLINICAL DATA: This is the patient's initial encounter. Patient reports that signs and symptoms have been present for 2 days and indicates a pain score of 9/10. MEDICAL/SURGICAL HISTORY: Pancreatitis. Gastroparesis. Lupus. MS, cerebral palsy Cholecyste ctomy. bowel resection ORAL CONTRAST: No oral contrast ingested. RADIATION DOSE: 9.17 CTDI (mGy) [place]: [facility] [place], [place]/30/2016. [facility] [place] W/O CONTRA ST, 07/26/2015. . TECHNIQUE: Multiple contiguous axial images were obtained through the abdomen and pelvis following b olus infusion of 75 ml Omnipaque 350 (iohexol) nonionic water-soluble contrast as a single exam dos e. No oral contrast ingested. Using automated exposure control and adjustment of the mA and/or kV ac cording to patient size, radiation dose was kept as low as reasonably achievable to obtain optimal di agnostic quality images. DICOM format image data is available electronically for review and comparis on. FINDINGS: Lower Lungs: The visualized lower lungs are clear. Liver: Liver is mildly enlarged. There is mild extrahepatic and central intrahepatic biliary ductal d ilatation of indeterminate etiology. Common bile duct measures 11 mm in greatest caliber. Correlation with alkaline phosphatase and bilirubin levels is suggested. This could be related to reservoir phen omenon status post cholecystectomy. No focal hepatic mass is noted. Spleen: The spleen is mildly enlarged. Pancreas: Unremarkable without mass or calcification. Kidneys: Normal in size and shape. No evidence of mass or hydronephrosis. Adrenal Glands: Unremarkable. Aorta: The aorta and proximal iliac vessels are grossly unremarkable without aneurysmal dilation. Bowel/Mesentery: Suture line is noted within a fluid-filled mildly dilated loop of small bowel within the left upper quadrant which is indeterminate. This is relatively unchanged compared to 08/30/2016 a nd may be related to altered post-surgical anatomy. No other dilated loops of small bowel are noted. The colon is normal in caliber. The cecum and sigmoid colon have a normal configuration. Abdominal Wall: Ventral abdominal wall hernias have been repaired. No significant recurrent hernia i s noted. Retroperitoneum: No evidence of adenopathy in the retrocrural, para-aortic, or deep pelvic regions. Bladder: Contours are smooth. Reproductive Organs: No abnormal masses or calcifications seen. Inguinal: The inguinal region is unremarkable without evidence of adenopathy. Bony Structures: Unremarkable. CONCLUSION: 1. Mild extrahepatic and central intrahepatic biliary ductal dilatation of indeterminate etiology. C ommon bile duct measures 11 mm in greatest caliber. Correlation with alkaline phosphatase and bilirub in levels is suggested. This could be related to reservoir phenomenon status post cholecystectomy. 2. Mild hepatosplenomegaly. 3. Fluid filled mildly dilated stable loop of small bowel within left upper quadrant which is unchan ged compared to previous examination in August 2016 and may be related to altered post-surgical anatomy in this location. Electronically signed by: Alex Carmichael MD 10/31/2017 3:26 PM EDT
[2017-10-31] MEDS ORDERED: Sod Chloride 0.9% Inj 1,000 ML IV.SIG SCH (15:30)
[2017-10-31 15:45] LABS: Creatine Kinase 75 U/L (26-192)
[2017-10-31] MEDS ORDERED: Bisacodyl 10 MG Supp RECTAL PRN (17:01)
[2017-10-31] MEDS ORDERED: Acetaminophen 325 MG Tablet PO PRN (17:01)
--- NOTE | 2017-10-31 17:50 | P.HP ---
History of Present Illness Service: [facility] Primary Care Physician: No Primary Care Physician Chief Complaint: Chest pain after CT, pressure like History of Present Illness: Patient is a 47-year-old female with past medical history of gastroparesis, cholecystectomy, CP, MS who initially came in to the hospital for complaints of abdominal pain. Patient states that she has abdominal pain with nausea since Sunday and she thought it was just her gastroparesis. States that the pain did not go away. She also reports having 4-5 stools that is dark, black today, with some loose stools. Patient states that she has suffered from gastroparesis for quite some time that she has a GJ tube placement. States that the GJ tube placement has migrated and came out last August and she went to [facility] but they are unable to place it back stating that she needs to go for surgical procedure for that. Patient follows GI doctor from [place] which she states that they have given up on her and referred her to [facility] for possible GJ placement. States that after that she is taking everything by mouth and feeling that she had aggravated her gastroparesis by doing so. States she has an appointment to see [facility] doctor on Sunday next week. During her visit patient went to CAT scan for a CT of the head since she also complained that last Sunday she had a fall and hit her head. CT of the head was negative. She also had a CAT scan of the abdomen and pelvis which showed mild extrahepatic and central intra-hepatic biliary ductal dilatation of indeterminate etiology. Common bile duct measures 11 mm in greatest caliber. Correlation with alkaline phosphatase and bilirubin levels is suggested. This could be related to reservoir phenomenon status post cholecystectomy. She has mild hepatosplenomegaly. Fluid-filled mildly dilated stable loop of small bowel within the left upper quadrant which is unchanged compared to previous examination in August 2016 and may be related to altered postsurgical anatomy in this location. Vital signs 78, 18, 137/68, 96% on room air. Patient states that when she was doing her CAT scan she complains of chest pain , started on the mid epigastric region radiates towards upper sternal area to her chest bilaterally. States chest pain was pressure-like, "like someone is sitting on my chest." This was associated by subjective feeling of hot flushing. Patient states that she had cardiac cath done years ago, unknown how long but states that they did not do any stent placements on her or further follow-up after cardiac cath. States it is a little bit better now. Reports she has bladder incontinence. Not bowel incontinence. Generalized weakness secondary to MS. Denies SOB/ dyspnea. Denies palpitations, headaches, dizziness. Denies fevers, chills, n/v. Denies dysuria. Review of Systems All other systems reviewed negative except as stated in HPI PMFSH - History History Provided By: Patient - Medical History Medical History: Medical History (Last Reviewed 10/31/17 @ 17:36 by HAYLEE Chatterjee) Anxiety Cerebral palsy Chronic pancreatitis Depression Fistula Gastroparesis Hypokalemia Intestinal perforation Lupus (systemic lupus erythematosus) Multiple sclerosis PTSD (post-traumatic stress disorder) Panic attacks Spina bifida - Surgical History Surgical History: Surgical History (Last Reviewed 10/31/17 @ 17:36 by HAYLEE Chatterjee) H/O cardiac catheterization H/O tubal ligation History of bowel resection History of colposcopy with cervical biopsy Hx of cholecystectomy - Family History Family History: Family History (Last Updated 10/31/17 @ 17:36 by HAYLEE Chatterjee) Other Heart problem - Social History I have reviewed the patient's Social History: Yes - Tobacco History Second Hand Smoke Exposure: No Tobacco Use In Past 30 Days: No Smoking Status: Current every day smoker Tobacco Type: Cigarettes Cigarettes Per Day: 5 - Alcohol History How Often Do You Have a Drink Containing Alcohol: Never - Substance Use History Substance History: Active Abuse - Substance Use Type Marijuana Status: Active Route Used: Inhalation - Travel History Recent Travel in the [place] Within the Last 8 Weeks: No Recent Travel Out of the Country Within the Last 8 Weeks: No - Immunization History Tetanus Immunization: Unsure Hx Influenza Vaccine This Season: No Medications and Allergies Active Medications: Active Medications Sodium Chloride (Ns Inj) 1,000 mls @ 0 mls/hr IV.SIG BOLUS NAUN Allergies Allergy/AdvReac Type Severity Reaction Status Date / Time cefazolin Allergy Severe RASH Unverified 10/31/17 12:37 ciprofloxacin Allergy Severe PANCREATITI Unverified 10/31/17 12:37 S diclofenac Allergy Severe GI Unverified 10/31/17 12:37 etodolac Allergy Severe GI Unverified 10/31/17 12:37 flurbiprofen Allergy Severe GI Unverified 10/31/17 12:37 ibuprofen Allergy Severe GI Unverified 10/31/17 12:37 indomethacin Allergy Severe GI Unverified 10/31/17 12:37 interferon beta-1a Allergy Severe ANAPHALACTI Unverified 10/31/17 12:37 C Interferons Allergy Severe ANAPHALACTI Unverified 10/31/17 12:37 C ketoprofen Allergy Severe GI Unverified 10/31/17 12:37 ketorolac Allergy Severe GI Unverified 10/31/17 12:37 latex Allergy Severe ANAPHALACTI Unverified 10/31/17 12:37 C naproxen Allergy Severe GI Unverified 10/31/17 12:37 oxaprozin Allergy Severe GI Unverified 10/31/17 12:37 penicillin G Allergy Severe ANAPHALACTI Unverified 10/31/17 12:37 C theophylline Allergy Severe TACHYCARDIA Unverified 10/31/17 12:37 tramadol Allergy Severe GI Unverified 10/31/17 12:37 acetaminophen Allergy Intermediate LIVER Unverified 10/31/17 12:37 aspirin Allergy Intermediate RASH Unverified 10/31/17 12:37 Fish Containing Products Allergy Intermediate RASH Unverified 10/31/17 12:37 gabapentin Allergy Intermediate HIVES Unverified 10/31/17 12:37 COPAXONE Allergy Severe ANAPHALACTI Uncoded 10/31/17 12:37 C *MDRO Multi-Drug Resistant AdvReac Unknown no reaction Uncoded 10/31/17 12:37 Organism Exam Vital signs: Vital Signs 10/31/17 10:59 10/31/17 11:10 10/31/17 13:15 Pulse Rate 78 79 Respiratory Rate 18 18 16 Blood Pressure 137/68 137/68 Pulse Oximetry 96 96 10/31/17 15:10 Pulse Rate 80 Respiratory Rate 18 Blood Pressure 126/73 Pulse Oximetry 99 Intake & Output 10/30/17 10/31/17 10/31/17 18:59 06:59 18:59 Intake Total 1000 / 1000 Balance 1000 / 1000 Weight 63.503 kg Intake: IV 1000 / 1000 NS Inj 1,000 ML @ Wide Open IV. 1000 / 1000 SIG BOLUS ONE Rx#:[id number] Narrative: GENERAL: This is a well-nourished, in no apparent distress. SKIN: Warm and dry. HEENT: Normocephalic. Pupils equal round and reactive. Nose without bleeding. Airway patent. NECK: Trachea midline. CARDIOVASCULAR: Regular rate and rhythm without murmurs, gallops, or rubs. RESPIRATORY: Exp wheeze. Moderate air entry. GASTROINTESTINAL: Abdomen soft, non-tender, nondistended. Bowel Sounds normoactive x4. MUSCULOSKELETAL: Extremities without clubbing, cyanosis, or edema. Spastic when moved. NEUROLOGICAL: Awake and alert. No focal neuro deficit. Moves all extremities. Normal speech. Results - Labs CBC & Chem 7: 10/31/17 11:45 10/31/17 11:45 Labs: Laboratory Results - last 24 hr 10/31/17 10/31/17 10/31/17 11:45 11:45 11:45 WBC 8.5 RBC 4.82 Hgb 14.9 Hct 42.1 MCV 87.2 MCH 31.0 MCHC 35.5 RDW 17.0 Plt Count 290 MPV 8.6 Neut % (Auto) 59.5 Lymph % (Auto) 30.5 [place] % (Auto) 5.5 Eos % (Auto) 3.5 Baso % (Auto) 1.0 Neut # (Auto) 5.0 Lymph # (Auto) 2.6 [place] # (Auto) 0.5 Eos # (Auto) 0.3 Baso # (Auto) 0.1 WBC Differential . Differential Comment Auto diff final Sodium 139 Potassium 3.9 Chloride 104 Carbon Dioxide 26.3 Anion Gap 9 BUN 12 Creatinine 0.74 Estimated GFR 85 L Random Glucose 86 Lactic Acid 0.6 Calcium 8.4 L Total Bilirubin 0.4 AST 10 L ALT 13 Alkaline Phosphatase 81 Total Creatine Kinase Troponin I Total Protein 7.1 Albumin 3.5 Lipase 116 Blood Type Blood Type Recheck Antibody Screen 10/31/17 10/31/17 11:45 11:45 WBC RBC Hgb Hct MCV MCH MCHC RDW Plt Count MPV Neut % (Auto) Lymph % (Auto) [place] % (Auto) Eos % (Auto) Baso % (Auto) Neut # (Auto) Lymph # (Auto) [place] # (Auto) Eos # (Auto) Baso # (Auto) WBC Differential Differential Comment Sodium Potassium Chloride Carbon Dioxide Anion Gap BUN Creatinine Estimated GFR Random Glucose Lactic Acid Calcium Total Bilirubin AST ALT Alkaline Phosphatase Total Creatine Kinase 75 Troponin I Less than 0.02 L Total Protein Albumin Lipase Blood Type A Positive Blood Type Recheck Required Antibody Screen Negative - Imaging Impressions Abdomen/Pelvis CT 10/31/17 11:35 CONCLUSION: 1. Mild extrahepatic and central intrahepatic biliary ductal dilatation of indeterminate etiology. Common bile duct measures 11 mm in greatest caliber. Correlation with alkaline phosphatase and bilirubin levels is suggested. This could be related to reservoir phenomenon status post cholecystectomy. 2. Mild hepatosplenomegaly. 3. Fluid filled mildly dilated stable loop of small bowel within left upper quadrant which is unchanged compared to previous examination in August 2016 and may be related to altered post-surgical anatomy in this location. Chest X-Ray 10/31/17 11:35 CONCLUSION: Negative examination. Head CT 10/31/17 12:37 CONCLUSION: 1. Negative CT Head non contrast. . Caprini VTE Risk Assessment Caprini VTE Risk Assessment: No/Low Risk (score <= 1) Caprini Risk Assessment Model: Point Value = 1 Point Value = 2 Point Value = 3 Point Value = 5 Age 41-60 Minor surgery BMI > 25 kg/m2 Swollen legs Varicose veins or History of unexplained or recurrent spontaneous Oral contraceptives or hormone replacement Sepsis (< 1 month) Serious lung disease, including pneumonia (< 1 month) Abnormal pulmonary function Acute myocardial infarction Congestive heart failure (< 1 month) History of inflammatory bowel disease Medical patient at bed rest Age 61-74 Arthroscopic surgery Major open surgery (> 45 min) Laparoscopic surgery (> 45 min) Malignancy Confined to bed (> 72 hours) Immobilizing plaster cast Central venous access Age >= 75 History of VTE Family history of VTE Factor V Leiden Prothrombin [id number] Lupus anticoagulant Anticardiolipin antibodies Elevated serum homocysteine Heparin-induced thrombocytopenia Other congenital or acquired thrombophilia Stroke (< 1 month) Elective arthroplasty Hip, pelvis, or leg fracture Acute spinal cord injury (< 1 month) Prophylaxis Regimen: Total Risk Factor Score Risk Level Prophylaxis Regimen 0-1 Low Early ambulation 2 Moderate Order ONE of the following: *Sequential Compression Device (SCD) *Heparin 5000 units SQ BID 3-4 Higher Order ONE of the following medications: *Heparin 5000 units SQ TID *Enoxaparin/Lovenox 40 mg SQ daily (WT < 150 kg, CrCl > 30 mL/min) *Enoxaparin/Lovenox 30 mg SQ daily (WT < 150 kg, CrCl > 10-29 mL/min) *Enoxaparin/Lovenox 30 mg SQ BID (WT < 150 kg, CrCl > 30 mL/min) AND/OR *Sequential Compression Device (SCD) 5 or more Highest Order ONE of the following medications: *Heparin 5000 units SQ TID (Preferred with Epidurals) *Enoxaparin/Lovenox 40 mg SQ daily (WT < 150 kg, CrCl > 30 mL/min) *Enoxaparin/Lovenox 30 mg SQ daily (WT < 150 kg, CrCl > 10-29 mL/min) *Enoxaparin/Lovenox 30 mg SQ BID (WT < 150 kg, CrCl > 30 mL/min) AND *Sequential Compression Device (SCD) Assessment and Plan - Plan Patient is a 47-year-old female with past medical history of gastroparesis, cholecystectomy, CP, MS who initially came in to the hospital for complaints of abdominal pain but subsequently had chest pain after CT scan History of gastroparesis Abdominal pain History of GJ tube placement, appointment at [facility] Sunday -CT scan of the abdomen and pelvis which showed mild extrahepatic and central intra-hepatic biliary ductal dilatation of indeterminate etiology. Common bile duct measures 11 mm in greatest caliber. Correlation with alkaline phosphatase and bilirubin levels is suggested. This could be related to reservoir phenomenon status post cholecystectomy. She has mild hepatosplenomegaly. Fluid-filled mildly dilated stable loop of small bowel within the left upper quadrant which is unchanged compared to previous examination in August 2016 and may be related to altered postsurgical anatomy in this location. -Zofran for nausea, Reglan as needed -Consult GI if warranted Black stools -Check stool for Hemoccult -H&H currently stable. Recheck tomorrow. -Given pantoprazole IV, will continue Chest pain, rule out ACS -Chest pain was fleeting lasting few seconds or less. Intermittent, pressure like mid epigastric towards left lower chest. Tender to palpate. -Morphine was given, nitro SL PRN, Allergic to ASA -EKG reviewed, no ST elevation changes noted. Sinus rhythm -First troponin negative. -Trend troponin, trend EKG -Blood pressures trended within normal -Consult cardiology if warranted -Place on cardiac telemetry -Follow-up labs Needs medication reconciliation DVT Scds Code Status: Full Code Discussed Condition With: Patient, nursing, Dr. Hoover Discharge Planning: DC home when clinically improved
[2017-10-31] MEDS: Pantoprazole Inj 40 MG Vial IV.PUSH SCH (18:32)
[2017-10-31] MEDS: Morphine Inj 4 MG/ML Vial IV.PUSH PRN (20:33)
--- NOTE | 2017-10-31 20:39 | P.PNADD ---
Addendum to Inpatient Note Reason for Addendum: Additional Documentation Additional information: The patient is complaining of severe abdominal pain that is not being managed. She is requesting to speak with the nursing gambling supervisor regarding the matter. Tylenol was ordered by the admitting provider. The patient has biliary ductal dilatation despite history of cholecystectomy; concern for ductal stone. I have added IV morphine 4 mg q3h for pain > 5 to at 0800 on 11/01 to alleviate the patient's pain overnight as needed (the patient required 4 - 8 mg IV morphine in the ED). The daytime attending will need to further address the management of the patient's pain in the morning. I placed a consult to gastroenterology to determine if the patient will need an ERCP. The patient will remain NPO given her current medical condition/complaints pending GI evaluation.
[2017-10-31 22:10] LABS: Creatine Kinase 48 U/L (26-192)
[2017-11-01] MEDS: Morphine Inj 4 MG/ML Vial IV.PUSH PRN ×5 (00:48→19:39)
[2017-11-01 04:09] LABS: Baso # (Auto) 0.1 th/mm3 (0.0-0.2); Baso % (Auto) 1.3 % (0.0-2.0); Eos # (Auto) 0.4 th/mm3 (0.0-0.4); Hematocrit 41.9 % (35.0-46.0); Hemoglobin 14.1 gm/dL (11.6-15.3); Lymph # (Auto) 2.7 th/mm3 (1.0-4.8); Mean Corpuscular HGB Conc 33.7 % (32.0-36.0); Mean Corpuscular Hemoglobin 30.1 pg (27.0-34.0); Mean Corpuscular Volume 89.5 fL (80.0-100.0); Mean Platelet Volume 8.7 fL (7.0-11.0); Mono # (Auto) 0.4 th/mm3 (0.0-0.9); Neut # (Auto) 4.8 th/mm3 (1.8-7.7); Neut % (Auto) 56.7 % (16.0-70.0); Platelet Count 234 th/mm3 (150-450); Red Blood Count 4.68 mil/mm3 (4.00-5.30); Red Cell Distribution Width 16.7 % (11.6-17.2); White Blood Count 8.4 th/mm3 (4.0-11.0)
[2017-11-01 04:53] LABS: Alanine Aminotransferase 30 U/L (10-53); Albumin 3.1 g/dL (3.4-5.0); Alkaline Phosphatase 108 U/L (45-117); Anion Gap 10 meq/L (5-15); Aspartate Aminotransferase 35 U/L (15-37); Blood Urea Nitrogen 8 mg/dL (7-18); Carbon Dioxide 21.8 meq/L (21.0-32.0); Chloride 107 meq/L (98-107); Glomerular Filtration Rate Greater Than 89 mL/min (>89); Glucose,Random 72 mg/dL (74-106); Potassium 3.6 meq/L (3.5-5.1); Sodium 139 meq/L (136-145); Total Protein 6.5 g/dL (6.4-8.2)
[2017-11-01 04:54] LABS: Creatine Kinase 49 U/L (26-192)
[2017-11-01] MEDS: Pantoprazole Inj 40 MG Vial IV.PUSH SCH ×2 (05:10→17:22)
[2017-11-01 05:41] LABS: Bilirubin,Urine Negative (Negative); Clarity,Urine Clear (Clear); Color,Urine Yellow (Yellw/Straw); Glucose,Urine (UA) Negative (Negative); Leukocyte Esterase,Urine Small (Negative); Nitrite,Urine Negative (Negative); Specific Gravity,Urine 1.029 (1.002-1.035); Squamous Epithelial Cell,Urine 1 /hpf (0-5)
--- NOTE | 2017-11-01 08:34 | P.PN ---
Subjective Interval history: Follow-up for abdominal pain, gastroparesis. Patient reports continued diffuse epigastric and right upper quadrant abdominal pain with associated nausea and dry heaves overnight. No BM since prior to arrival. Denies fevers or chills. Patient reports she has been unable to tolerate meals at home. She states immediately after attempting oral intake, she has abdominal pain, nausea, and occasional vomiting. She states she is supposed to have a G J-tube reinserted at [facility]. She states her GJ tube fell out back in July, and she has been struggling to get this replaced. She states she has seen Dr. Whyte in the past. She has no other medical complaints at this time. Physical Exam Vital signs: Vital Signs 10/31/17 10:59 10/31/17 11:10 10/31/17 13:15 Temperature Pulse Rate 78 79 Respiratory Rate 18 18 16 Blood Pressure 137/68 137/68 Pulse Oximetry 96 96 10/31/17 15:10 10/31/17 17:08 10/31/17 18:13 Temperature 97.8 F Pulse Rate 80 59 L Respiratory Rate 18 16 16 Blood Pressure 126/73 112/55 L Pulse Oximetry 99 97 10/31/17 20:00 10/31/17 23:46 11/01/17 02:59 Temperature 97.8 F 97.8 F 98.0 F Pulse Rate 58 L 58 L 68 Respiratory Rate 18 16 16 Blood Pressure 104/69 107/53 L 119/63 Pulse Oximetry 93 L 94 L 95 11/01/17 07:14 Temperature 97.6 F Pulse Rate 60 Respiratory Rate 20 Blood Pressure 121/57 L Pulse Oximetry 92 L Intake & Output 10/31/17 11/01/17 11/01/17 18:59 06:59 18:59 Intake Total 1000 / 1000 Balance 1000 / 1000 Weight 63.503 kg 63.049 kg Intake: IV 1000 / 1000 NS Inj 1,000 ML @ Wide Open IV. 1000 / 1000 SIG BOLUS ONE Rx#:[id number] Other: # Voids 2 Date of Last Bowel Movement 10/30/17 Weight On Admission 63.5 kg Narrative: GENERAL: Well-nourished, well-developed middle-aged female patient in [facility]. SKIN: Warm and dry. No rash. HEENT: Normocephalic. Atraumatic. Pupils equal and round. Mucous membranes pink and moist. CARDIOVASCULAR: Regular rate and rhythm. No murmur appreciated. RESPIRATORY: No accessory muscle use. Clear to auscultation. Breath sounds equal bilaterally. GASTROINTESTINAL: Abdomen soft, nondistended, diffuse epigastric and right upper quadrant tenderness to palpation. Normoactive bowel sounds x4. MUSCULOSKELETAL: No obvious deformities. Extremities without clubbing, cyanosis , or edema. NEUROLOGICAL: Awake and alert. No obvious cranial nerve deficits. Normal speech. PSYCHIATRIC: Appropriate mood and affect; insight and judgment normal. Results - Labs CBC & Chem 7: 11/01/17 03:23 11/01/17 03:23 Laboratory Results - last 24 hr 10/31/17 10/31/17 10/31/17 11:45 11:45 11:45 WBC 8.5 RBC 4.82 Hgb 14.9 Hct 42.1 MCV 87.2 MCH 31.0 MCHC 35.5 RDW 17.0 Plt Count 290 MPV 8.6 Neut % (Auto) 59.5 Lymph % (Auto) 30.5 [place] % (Auto) 5.5 Eos % (Auto) 3.5 Baso % (Auto) 1.0 Neut # (Auto) 5.0 Lymph # (Auto) 2.6 [place] # (Auto) 0.5 Eos # (Auto) 0.3 Baso # (Auto) 0.1 WBC Differential . Differential Comment Auto diff final Hematology Comments Sodium 139 Potassium 3.9 Chloride 104 Carbon Dioxide 26.3 Anion Gap 9 BUN 12 Creatinine 0.74 Estimated GFR 85 L Random Glucose 86 Lactic Acid 0.6 Calcium 8.4 L Total Bilirubin 0.4 AST 10 L ALT 13 Alkaline Phosphatase 81 Total Creatine Kinase Troponin I Total Protein 7.1 Albumin 3.5 Lipase 116 Urine Color Urine Clarity Urine pH Ur Specific [place] Urine Protein Urine Glucose (UA) Urine Ketones Urine Occult Blood Urine Nitrate Urine Bilirubin Urine Urobilinogen Ur Leukocyte Esterase Urine RBC Urine WBC Ur Squamous Epith Cells Micro UA Comment Ur Microscopic Review Urine Culture Comments Blood Type Blood Type Recheck Antibody Screen 10/31/17 10/31/17 10/31/17 11:45 11:45 20:55 WBC RBC Hgb Hct MCV MCH MCHC RDW Plt Count MPV Neut % (Auto) Lymph % (Auto) [place] % (Auto) Eos % (Auto) Baso % (Auto) Neut # (Auto) Lymph # (Auto) [place] # (Auto) Eos # (Auto) Baso # (Auto) WBC Differential Differential Comment Hematology Comments Sodium Potassium Chloride Carbon Dioxide Anion Gap BUN Creatinine Estimated GFR Random Glucose Lactic Acid Calcium Total Bilirubin AST ALT Alkaline Phosphatase Total Creatine Kinase 75 48 Troponin I Less than 0.02 L Less than 0.02 L Total Protein Albumin Lipase Urine Color Urine Clarity Urine pH Ur Specific [place] Urine Protein Urine Glucose (UA) Urine Ketones Urine Occult Blood Urine Nitrate Urine Bilirubin Urine Urobilinogen Ur Leukocyte Esterase Urine RBC Urine WBC Ur Squamous Epith Cells Micro UA Comment Ur Microscopic Review Urine Culture Comments Blood Type A Positive Blood Type Recheck Required Antibody Screen Negative 11/01/17 11/01/17 11/01/17 03:23 03:23 04:53 WBC 8.4 RBC 4.68 Hgb 14.1 Hct 41.9 MCV 89.5 MCH 30.1 MCHC 33.7 RDW 16.7 Plt Count 234 MPV 8.7 Neut % (Auto) 56.7 Lymph % (Auto) 32.0 [place] % (Auto) 5.0 Eos % (Auto) 5.0 H Baso % (Auto) 1.3 Neut # (Auto) 4.8 Lymph # (Auto) 2.7 [place] # (Auto) 0.4 Eos # (Auto) 0.4 Baso # (Auto) 0.1 WBC Differential . Differential Comment Auto diff final Hematology Comments Sodium 139 Potassium 3.6 Chloride 107 Carbon Dioxide 21.8 Anion Gap 10 BUN 8 Creatinine 0.60 Estimated GFR Greater than 89 Random Glucose 72 L Lactic Acid Calcium 8.0 L Total Bilirubin 0.6 AST 35 ALT 30 Alkaline Phosphatase 108 Total Creatine Kinase 49 Troponin I Less than 0.02 L Total Protein 6.5 D Albumin 3.1 L Lipase Urine Color Yellow Urine Clarity Clear Urine pH 5.0 Ur Specific [place] 1.029 Urine Protein Negative Urine Glucose (UA) Negative Urine Ketones 20 Urine Occult Blood Small H Urine Nitrate Negative Urine Bilirubin Negative Urine Urobilinogen Less than 2 Ur Leukocyte Esterase Small H Urine RBC 1 Urine WBC 1 Ur Squamous Epith Cells 1 Micro UA Comment Culture not ind Ur Microscopic Review Not Reportable Urine Culture Comments Culture not ind Blood Type Blood Type Recheck Antibody Screen - Imaging Impressions Abdomen/Pelvis CT 10/31/17 11:35 CONCLUSION: 1. Mild extrahepatic and central intrahepatic biliary ductal dilatation of indeterminate etiology. Common bile duct measures 11 mm in greatest caliber. Correlation with alkaline phosphatase and bilirubin levels is suggested. This could be related to reservoir phenomenon status post cholecystectomy. 2. Mild hepatosplenomegaly. 3. Fluid filled mildly dilated stable loop of small bowel within left upper quadrant which is unchanged compared to previous examination in August 2016 and may be related to altered post-surgical anatomy in this location. Chest X-Ray 10/31/17 11:35 CONCLUSION: Negative examination. Head CT 10/31/17 12:37 CONCLUSION: 1. Negative CT Head non contrast. . Assessment and Plan - Plan 47-year-old female with past medical history of gastroparesis, cholecystectomy, CP, MS who initially came in to the hospital for complaints of abdominal pain but subsequently had chest pain after CT scan Intractable abdominal pain/nausea/vomiting: Suspect flare of gastroparesis. Patient has history of G J-tube and is in the process of having this replaced, reportedly appointment at [facility] Sunday -CT abd/pelvis showed mild extrahepatic and central intra-hepatic biliary ductal dilatation of indeterminate etiology. Common bile duct measures 11 mm in greatest caliber. Correlation with alkaline phosphatase and bilirubin levels is suggested. This could be related to reservoir phenomenon status post cholecystectomy. She has mild hepatosplenomegaly. Fluid-filled mildly dilated stable loop of small bowel within the left upper quadrant which is unchanged compared to previous examination in August 2016 and may be related to altered postsurgical anatomy in this location. -Zofran for nausea -Schedule IV Reglan tidac -Consult GI, appreciate recommendations -Going for MRCP today Black stools -Hemoccult negative in the ED -H&H currently stable at 14.9 --> 14.1. -Continue pantoprazole IV Chest pain: strongly suspect GI related, pain more epigastric region, however will rule out ACS -Chest pain was fleeting lasting few seconds or less. Intermittent, pressure like mid epigastric towards left lower chest. Tender to palpation -Morphine was given, nitro SL PRN, Allergic to ASA -ACS ruled out with negative serial cardiac enzymes and EKG without acute ischemic changes. -Monitor on cardiac telemetry -No further chest pains, only epigastric/GI complaints All other medical conditions stable, continue home medications as appropriate. DVT Prophylaxis: teds/SCDs; avoid chemical prophylaxis with concern for GI bleed and possible procedures.
--- NOTE | 2017-11-01 09:56 | P.CONGI ---
History of Present Illness Consult date: 11/01/17 Consult reason: Biliary duct dilatation in a patient with abdominal pain status post cholecystectomy Chief complaint: Chestpain r/o ACS, gastroparesis History of Present Illness: Ms. Delacruz is a 47-year-old female who presented to the emergency room with a complaint of mid upper abdominal pain with nausea and vomiting for 2 days patient describes the pain as sharp, "knife stabbing". She states the pain is constant and does not radiate. At this time patient is rating her pain at 8 out of 10. This patient has a significant past medical history for gastroparesis and chronic pancreatitis. She also reports history of multiple sclerosis and dysphagia. Patient is n.p.o. at this time and does deny difficulty swallowing. She also reports having 4-5 soft to loose dark colored stools yesterday. Patient denies the intake of iron or the use of any blood thinners she states her surgical history includes fistula that was corrected in November 2016 as well as placement of GJ feeding tube. Patient states in July 2017 her feeding tube, "migrated out". Patient currently eating by mouth and reports generalized abdominal pain and nausea since she has started to take all meals by mouth. Patient was referred to [facility] for gastrointestinal services and states that she has an appointment next Sunday. Patient denies ever having had a colonoscopy but does endorse that she has had an EGD in 2015 or 2016 where she was diagnosed at that time with hiatal hernia. Patient reports known family history for stomach, colon and throat cancer ( her father). Patient states she does not drink alcohol but she occasionally smokes marijuana and does smoke 5 cigarettes daily. A.m. labs 11/01/17 reviewed WBC 8.4 hemoglobin 14.1 hematocrit 41.9 platelet count 234 Total bilirubin 0.6 AST 35 ALT 30 Alkaline phosphatase 108 Lipase 116. Upon admission CT scan of abdomen and pelvis revealed the following--> Mild extrahepatic and central intrahepatic biliary ductal dilatation of indeterminate etiology. Common bile duct measures 11 mm in greatest caliber. Correlation with alkaline phosphatase and bilirubin levels is suggested. This could be related to reservoir phenomenon status post cholecystectomy. Mild hepatosplenomegaly. Fluid filled mildly dilated stable loop of small bowel within left upper quadrant which is unchanged compared to previous examination in August 2016 and may be related to altered post-surgical anatomy in this location. This practice has been consulted to evaluate patient's complaint of abdominal pain with finding of common bile duct dilatation. <Marisol Campos - Last Filed: 11/01/17 10:05> Review of Systems Constitutional: Reports fatigue, Denies anorexia, Denies body ache(s), Denies chills, Denies weakness Cardiovascular: Denies chest pain, Denies chest pain with activity, Denies generalized swelling Respiratory: Denies cough Gastrointestinal: Reports abdominal pain, Reports change in bowel habits, Reports loose stools, Reports nausea, Reports vomiting, Denies belching, Denies bloating, Denies bright, red blood in stools, Denies cramping, Denies difficulty swallowing Musculoskeletal: Reports back pain <Marisol Campos - Last Filed: 11/01/17 10:05> PMFSH - History History Provided By: Patient - Medical History Medical History: Medical History (Last Reviewed 11/01/17 @ 09:01 by Oniel Pierce) Anxiety Cerebral palsy Chronic pancreatitis Depression Fistula Gastroparesis Hypokalemia Intestinal perforation Lupus (systemic lupus erythematosus) Multiple sclerosis PTSD (post-traumatic stress disorder) Panic attacks Spina bifida - Surgical History Surgical History: Surgical History (Last Reviewed 11/01/17 @ 09:01 by Oniel Pierce) H/O cardiac catheterization H/O tubal ligation History of bowel resection History of colposcopy with cervical biopsy Hx of cholecystectomy - Family History Family History: Family History (Last Updated 10/31/17 @ 17:36 by HAYLEE Chatterjee) Other Heart problem - Tobacco History Second Hand Smoke Exposure: Yes Tobacco Use In Past 30 Days: Yes Smoking Status: Current every day smoker Tobacco Type: Cigarettes Cigarettes Per Day: 5 - Alcohol History How Often Do You Have a Drink Containing Alcohol: Never - Substance Use History Substance History: No History of Abuse - Substance Use Type Marijuana Status: Active Route Used: Inhalation - Travel History Recent Travel in the [place] Within the Last 8 Weeks: No Recent Travel Out of the Country Within the Last 8 Weeks: No - Immunization History Tetanus Immunization: Unsure Hx Influenza Vaccine This Season: No <Marisol Campos - Last Filed: 11/01/17 10:05> - Medical History Medical History: Medical History (Last Reviewed 11/01/17 @ 09:01 by Oniel Pierce) Anxiety Cerebral palsy Chronic pancreatitis Depression Fistula Gastroparesis Hypokalemia Intestinal perforation Lupus (systemic lupus erythematosus) Multiple sclerosis PTSD (post-traumatic stress disorder) Panic attacks Spina bifida - Surgical History Surgical History: Surgical History (Last Reviewed 11/01/17 @ 09:01 by Oniel Pierce) H/O cardiac catheterization H/O tubal ligation History of bowel resection History of colposcopy with cervical biopsy Hx of cholecystectomy - Family History Family History: Family History (Last Updated 10/31/17 @ 17:36 by HAYLEE Chatterjee) Other Heart problem <Abdi Henderson - Last Filed: 11/01/17 19:15> Medications and Allergies Active Medications: Active Medications Acetaminophen (Tylenol) 650 mg PO Q4H PRN PRN Reason: Temp > 100.4, SARGENT, Pain 1-5 Al Hydroxide/Mg Hydroxide (Milk Of Magnesia Liq) 30 ml PO Q12H PRN PRN Reason: Mild Constipation Bisacodyl (Dulcolax Supp) 10 mg RECTAL DAILY PRN PRN Reason: SEVERE CONSITIPATION Sodium Chloride (Ns Inj) 1,000 mls @ 0 mls/hr IV.SIG BOLUS NAUN Lactulose (Lactulose Liq) 30 ml PO DAILY PRN PRN Reason: SEVERE CONSITIPATION Metoclopramide HCl (Reglan Inj) 5 mg IV.PUSH TIDAC NAUN; Protocol Last Admin: 11/01/17 08:32 Dose: 5 mg Morphine Sulfate (Morphine Inj) 4 mg IV.PUSH Q4H PRN PRN Reason: BREAKTHROUGH PAIN Last Admin: 11/01/17 08:33 Dose: 4 mg Nitroglycerin (Nitrostat Sl) 0.4 mg SL Q5M PRN PRN Reason: CHEST PAIN Ondansetron HCl (Zofran Inj) 4 mg IV.PUSH Q6H PRN PRN Reason: NAUSEA OR VOMITING Last Admin: 11/01/17 04:52 Dose: 4 mg Pantoprazole Sodium (Protonix Inj) 40 mg IV.PUSH Q12H NAUN Last Admin: 11/01/17 05:10 Dose: 40 mg Sennosides (Senokot) 17.2 mg PO Q12H PRN PRN Reason: Moderate Constipation <Marisol Campos - Last Filed: 11/01/17 10:05> Active Medications: Active Medications Acetaminophen (Tylenol) 650 mg PO Q4H PRN PRN Reason: Temp > 100.4, SARGENT, Pain 1-5 Al Hydroxide/Mg Hydroxide (Milk Of Magnesia Liq) 30 ml PO Q12H PRN PRN Reason: Mild Constipation Bisacodyl (Dulcolax Supp) 10 mg RECTAL DAILY PRN PRN Reason: SEVERE CONSITIPATION Sodium Chloride (Ns Inj) 1,000 mls @ 0 mls/hr IV.SIG BOLUS NAUN Lactulose (Lactulose Liq) 30 ml PO DAILY PRN PRN Reason: SEVERE CONSITIPATION Lorazepam (Ativan Inj) 1 mg IV.PUSH ONCE PRN PRN Reason: claustrophobia Last Admin: 11/01/17 12:23 Dose: 1 mg Metoclopramide HCl (Reglan Inj) 5 mg IV.PUSH TIDAC NAUN; Protocol Last Admin: 11/01/17 17:22 Dose: 5 mg Morphine Sulfate (Morphine Inj) 4 mg IV.PUSH Q4H PRN PRN Reason: BREAKTHROUGH PAIN Last Admin: 11/01/17 13:52 Dose: 4 mg Nitroglycerin (Nitrostat Sl) 0.4 mg SL Q5M PRN PRN Reason: CHEST PAIN Ondansetron HCl (Zofran Inj) 4 mg IV.PUSH Q6H PRN PRN Reason: NAUSEA OR VOMITING Last Admin: 11/01/17 04:52 Dose: 4 mg Pantoprazole Sodium (Protonix Inj) 40 mg IV.PUSH Q12H NAUN Last Admin: 11/01/17 17:22 Dose: 40 mg Sennosides (Senokot) 17.2 mg PO Q12H PRN PRN Reason: Moderate Constipation <Abdi Henderson E - Last Filed: 11/01/17 19:15> Allergies Allergy/AdvReac Type Severity Reaction Status Date / Time cefazolin Allergy Severe RASH Unverified 10/31/17 12:37 ciprofloxacin Allergy Severe PANCREATITI Unverified 10/31/17 12:37 S diclofenac Allergy Severe GI Unverified 10/31/17 12:37 etodolac Allergy Severe GI Unverified 10/31/17 12:37 flurbiprofen Allergy Severe GI Unverified 10/31/17 12:37 ibuprofen Allergy Severe GI Unverified 10/31/17 12:37 indomethacin Allergy Severe GI Unverified 10/31/17 12:37 interferon beta-1a Allergy Severe ANAPHALACTI Unverified 10/31/17 12:37 C Interferons Allergy Severe ANAPHALACTI Unverified 10/31/17 12:37 C ketoprofen Allergy Severe GI Unverified 10/31/17 12:37 ketorolac Allergy Severe GI Unverified 10/31/17 12:37 latex Allergy Severe ANAPHALACTI Unverified 10/31/17 12:37 C naproxen Allergy Severe GI Unverified 10/31/17 12:37 oxaprozin Allergy Severe GI Unverified 10/31/17 12:37 penicillin G Allergy Severe ANAPHALACTI Unverified 10/31/17 12:37 C theophylline Allergy Severe TACHYCARDIA Unverified 10/31/17 12:37 tramadol Allergy Severe GI Unverified 10/31/17 12:37 acetaminophen Allergy Intermediate LIVER Unverified 10/31/17 12:37 aspirin Allergy Intermediate RASH Unverified 10/31/17 12:37 Fish Containing Products Allergy Intermediate RASH Unverified 10/31/17 12:37 gabapentin Allergy Intermediate HIVES Unverified 10/31/17 12:37 COPAXONE Allergy Severe ANAPHALACTI Uncoded 10/31/17 12:37 C *MDRO Multi-Drug Resistant AdvReac Unknown no reaction Uncoded 10/31/17 12:37 Organism Home Medications Medication Instructions Recorded Confirmed Type cyclobenzaprine 10 mg PO HS 10/31/17 10/31/17 History famotidine [Pepcid] 40 mg PO BID 10/31/17 10/31/17 History Exam Vital signs: Vital Signs 10/31/17 10:59 10/31/17 11:10 10/31/17 13:15 Temperature Pulse Rate 78 79 Respiratory Rate 18 18 16 Blood Pressure 137/68 137/68 Pulse Oximetry 96 96 10/31/17 15:10 10/31/17 17:08 10/31/17 18:13 Temperature 97.8 F Pulse Rate 80 59 L Respiratory Rate 18 16 16 Blood Pressure 126/73 112/55 L Pulse Oximetry 99 97 10/31/17 20:00 10/31/17 23:46 11/01/17 02:59 Temperature 97.8 F 97.8 F 98.0 F Pulse Rate 58 L 58 L 68 Respiratory Rate 18 16 16 Blood Pressure 104/69 107/53 L 119/63 Pulse Oximetry 93 L 94 L 95 11/01/17 07:14 Temperature 97.6 F Pulse Rate 60 Respiratory Rate 20 Blood Pressure 121/57 L Pulse Oximetry 92 L Intake & Output 10/31/17 11/01/17 11/01/17 18:59 06:59 18:59 Intake Total 1000 / 1000 Balance 1000 / 1000 Weight 63.503 kg 63.049 kg Intake: IV 1000 / 1000 NS Inj 1,000 ML @ Wide Open IV. 1000 / 1000 SIG BOLUS ONE Rx#:[id number] Other: # Voids 2 Date of Last Bowel Movement 10/30/17 Weight On Admission 63.5 kg - Constitutional no acute distress - Routine HEENT Exam Head: Present: normocephalic - Routine Chest/Breast/Axilla Exam Chest wall: Absent: tenderness - Routine Respiratory Exam Present: CTA bilaterally. Absent: accessory muscle use - Routine Cardiovascular Exam Present: RRR. Absent: irregular rhythm - Routine Abdominal Exam Present: soft, normoactive bowel sounds, tenderness. Absent: distended, guarding, firm Comments: Healed scar to right midline abdomen. patient states from fistula repair in 2017. Along with healed site from GJ feeding tube. no s/s of infection noted. No drainage or redness - Routine Extremities Exam Present: full ROM, pulses intact. Absent: clubbing - Routine Skin Exam Present: dry, warm - Routine Neurological Exam Present: alert, oriented X3 <Campos,Marisol - Last Filed: 11/01/17 10:05> Vital signs: Vital Signs 10/31/17 20:00 10/31/17 23:46 11/01/17 02:59 Temperature 97.8 F 97.8 F 98.0 F Pulse Rate 58 L 58 L 68 Respiratory Rate 18 16 16 Blood Pressure 104/69 107/53 L 119/63 Pulse Oximetry 93 L 94 L 95 11/01/17 07:14 11/01/17 08:00 11/01/17 11:08 Temperature 97.6 F 98.2 F Pulse Rate 60 65 Respiratory Rate 20 20 18 Blood Pressure 121/57 L 110/59 L Pulse Oximetry 92 L 95 11/01/17 11:24 11/01/17 15:22 Temperature 98.2 F Pulse Rate 58 L 66 Respiratory Rate 20 Blood Pressure 107/56 L Pulse Oximetry 93 L Intake & Output 11/01/17 11/01/17 11/02/17 06:59 18:59 06:59 Weight 63.049 kg Other: # Voids 2 Date of Last Bowel Movement 10/30/17 10/30/17 Weight On Admission 63.5 kg <Abdi Henderson - Last Filed: 11/01/17 19:15> Results - Labs CBC & Chem 7: 11/01/17 03:23 11/01/17 03:23 Labs: Laboratory Results - last 24 hr 10/31/17 10/31/17 10/31/17 11:45 11:45 11:45 WBC 8.5 RBC 4.82 Hgb 14.9 Hct 42.1 MCV 87.2 MCH 31.0 MCHC 35.5 RDW 17.0 Plt Count 290 MPV 8.6 Neut % (Auto) 59.5 Lymph % (Auto) 30.5 [place] % (Auto) 5.5 Eos % (Auto) 3.5 Baso % (Auto) 1.0 Neut # (Auto) 5.0 Lymph # (Auto) 2.6 [place] # (Auto) 0.5 Eos # (Auto) 0.3 Baso # (Auto) 0.1 WBC Differential . Differential Comment Auto diff final Hematology Comments Sodium 139 Potassium 3.9 Chloride 104 Carbon Dioxide 26.3 Anion Gap 9 BUN 12 Creatinine 0.74 Estimated GFR 85 L Random Glucose 86 Lactic Acid 0.6 Calcium 8.4 L Total Bilirubin 0.4 AST 10 L ALT 13 Alkaline Phosphatase 81 Total Creatine Kinase Troponin I Total Protein 7.1 Albumin 3.5 Lipase 116 Urine Color Urine Clarity Urine pH Ur Specific [place] Urine Protein Urine Glucose (UA) Urine Ketones Urine Occult Blood Urine Nitrate Urine Bilirubin Urine Urobilinogen Ur Leukocyte Esterase Urine RBC Urine WBC Ur Squamous Epith Cells Micro UA Comment Ur Microscopic Review Urine Culture Comments Blood Type Blood Type Recheck Antibody Screen 10/31/17 10/31/17 10/31/17 11:45 11:45 20:55 WBC RBC Hgb Hct MCV MCH MCHC RDW Plt Count MPV Neut % (Auto) Lymph % (Auto) [place] % (Auto) Eos % (Auto) Baso % (Auto) Neut # (Auto) Lymph # (Auto) [place] # (Auto) Eos # (Auto) Baso # (Auto) WBC Differential Differential Comment Hematology Comments Sodium Potassium Chloride Carbon Dioxide Anion Gap BUN Creatinine Estimated GFR Random Glucose Lactic Acid Calcium Total Bilirubin AST ALT Alkaline Phosphatase Total Creatine Kinase 75 48 Troponin I Less than 0.02 L Less than 0.02 L Total Protein Albumin Lipase Urine Color Urine Clarity Urine pH Ur Specific [place] Urine Protein Urine Glucose (UA) Urine Ketones Urine Occult Blood Urine Nitrate Urine Bilirubin Urine Urobilinogen Ur Leukocyte Esterase Urine RBC Urine WBC Ur Squamous Epith Cells Micro UA Comment Ur Microscopic Review Urine Culture Comments Blood Type A Positive Blood Type Recheck Required Antibody Screen Negative 11/01/17 11/01/17 11/01/17 03:23 03:23 04:53 WBC 8.4 RBC 4.68 Hgb 14.1 Hct 41.9 MCV 89.5 MCH 30.1 MCHC 33.7 RDW 16.7 Plt Count 234 MPV 8.7 Neut % (Auto) 56.7 Lymph % (Auto) 32.0 [place] % (Auto) 5.0 Eos % (Auto) 5.0 H Baso % (Auto) 1.3 Neut # (Auto) 4.8 Lymph # (Auto) 2.7 [place] # (Auto) 0.4 Eos # (Auto) 0.4 Baso # (Auto) 0.1 WBC Differential . Differential Comment Auto diff final Hematology Comments Sodium 139 Potassium 3.6 Chloride 107 Carbon Dioxide 21.8 Anion Gap 10 BUN 8 Creatinine 0.60 Estimated GFR Greater than 89 Random Glucose 72 L Lactic Acid Calcium 8.0 L Total Bilirubin 0.6 AST 35 ALT 30 Alkaline Phosphatase 108 Total Creatine Kinase 49 Troponin I Less than 0.02 L Total Protein 6.5 D Albumin 3.1 L Lipase Urine Color Yellow Urine Clarity Clear Urine pH 5.0 Ur Specific [place] 1.029 Urine Protein Negative Urine Glucose (UA) Negative Urine Ketones 20 Urine Occult Blood Small H Urine Nitrate Negative Urine Bilirubin Negative Urine Urobilinogen Less than 2 Ur Leukocyte Esterase Small H Urine RBC 1 Urine WBC 1 Ur Squamous Epith Cells 1 Micro UA Comment Culture not ind Ur Microscopic Review Not Reportable Urine Culture Comments Culture not ind Blood Type Blood Type Recheck Antibody Screen - Imaging Impressions Abdomen/Pelvis CT 10/31/17 11:35 CONCLUSION: 1. Mild extrahepatic and central intrahepatic biliary ductal dilatation of indeterminate etiology. Common bile duct measures 11 mm in greatest caliber. Correlation with alkaline phosphatase and bilirubin levels is suggested. This could be related to reservoir phenomenon status post cholecystectomy. 2. Mild hepatosplenomegaly. 3. Fluid filled mildly dilated stable loop of small bowel within left upper quadrant which is unchanged compared to previous examination in August 2016 and may be related to altered post-surgical anatomy in this location. Chest X-Ray 10/31/17 11:35 CONCLUSION: Negative examination. Head CT 10/31/17 12:37 CONCLUSION: 1. Negative CT Head non contrast. . <Marisol Campos - Last Filed: 11/01/17 10:05> - Labs CBC & Chem 7: 11/01/17 03:23 11/01/17 03:23 Labs: Laboratory Results - last 24 hr 10/31/17 11/01/17 11/01/17 20:55 03:23 03:23 WBC 8.4 RBC 4.68 Hgb 14.1 Hct 41.9 MCV 89.5 MCH 30.1 MCHC 33.7 RDW 16.7 Plt Count 234 MPV 8.7 Neut % (Auto) 56.7 Lymph % (Auto) 32.0 [place] % (Auto) 5.0 Eos % (Auto) 5.0 H Baso % (Auto) 1.3 Neut # (Auto) 4.8 Lymph # (Auto) 2.7 [place] # (Auto) 0.4 Eos # (Auto) 0.4 Baso # (Auto) 0.1 WBC Differential . Differential Comment Auto diff final Hematology Comments Sodium 139 Potassium 3.6 Chloride 107 Carbon Dioxide 21.8 Anion Gap 10 BUN 8 Creatinine 0.60 Estimated GFR Greater than 89 Random Glucose 72 L Calcium 8.0 L Total Bilirubin 0.6 AST 35 ALT 30 Alkaline Phosphatase 108 Total Creatine Kinase 48 49 Troponin I Less than 0.02 L Less than 0.02 L Total Protein 6.5 D Albumin 3.1 L Urine Color Urine Clarity Urine pH Ur Specific [place] Urine Protein Urine Glucose (UA) Urine Ketones Urine Occult Blood Urine Nitrate Urine Bilirubin Urine Urobilinogen Ur Leukocyte Esterase Urine RBC Urine WBC Ur Squamous Epith Cells Micro UA Comment Ur Microscopic Review Urine Culture Comments 11/01/17 04:53 WBC RBC Hgb Hct MCV MCH MCHC RDW Plt Count MPV Neut % (Auto) Lymph % (Auto) [place] % (Auto) Eos % (Auto) Baso % (Auto) Neut # (Auto) Lymph # (Auto) [place] # (Auto) Eos # (Auto) Baso # (Auto) WBC Differential Differential Comment Hematology Comments Sodium Potassium Chloride Carbon Dioxide Anion Gap BUN Creatinine Estimated GFR Random Glucose Calcium Total Bilirubin AST ALT Alkaline Phosphatase Total Creatine Kinase Troponin I Total Protein Albumin Urine Color Yellow Urine Clarity Clear Urine pH 5.0 Ur Specific [place] 1.029 Urine Protein Negative Urine Glucose (UA) Negative Urine Ketones 20 Urine Occult Blood Small H Urine Nitrate Negative Urine Bilirubin Negative Urine Urobilinogen Less than 2 Ur Leukocyte Esterase Small H Urine RBC 1 Urine WBC 1 Ur Squamous Epith Cells 1 Micro UA Comment Culture not ind Ur Microscopic Review Not Reportable Urine Culture Comments Culture not ind - Imaging Impressions Cholangiopancreatography MRI 11/01/17 10:06 CONCLUSION: 1. Common bile duct is unremarkable. Status post cholecystectomy. No obstructing stone or stenosis identified <Abdi Henderson - Last Filed: 11/01/17 19:15> Assessment and Plan (1) Abdominal pain Status: Acute Code(s): R10.9 - Unspecified abdominal pain (2) Common bile duct dilatation Status: Acute Code(s): K83.8 - Other specified diseases of biliary tract - Plan Ms. Delacruz is a 47-year-old female who presented to the emergency room with a complaint of mid upper abdominal pain with nausea and vomiting for 2 days patient describes the pain as sharp, "knife stabbing". She states the pain is constant and does not radiate. At this time patient is rating her pain at 8 out of 10. This patient has a significant past medical history for gastroparesis and chronic pancreatitis. She also reports history of multiple sclerosis and dysphagia. Patient is n.p.o. at this time and does deny difficulty swallowing. She also reports having 4-5 soft to loose dark colored stools yesterday. Patient denies the intake of iron or the use of any blood thinners she states her surgical history includes fistula that was corrected in November 2016 as well as placement of GJ feeding tube. Patient states in July 2017 her feeding tube, "migrated out". Patient currently eating by mouth and reports generalized abdominal pain and nausea since she has started to take all meals by mouth. Patient was referred to [facility] for gastrointestinal services and states that she has an appointment next Sunday. Patient denies ever having had a colonoscopy but does endorse that she has had an EGD in 2015 or 2016 where she was diagnosed at that time with hiatal hernia. Patient reports known family history for stomach, colon and throat cancer ( her father). Patient states she does not drink alcohol but she occasionally smokes marijuana and does smoke 5 cigarettes daily. A.m. labs 11/01/17 reviewed WBC 8.4 hemoglobin 14.1 hematocrit 41.9 platelet count 234 Total bilirubin 0.6 AST 35 ALT 30 Alkaline phosphatase 108 Lipase 116. Upon admission CT scan of abdomen and pelvis revealed the following--> Mild extrahepatic and central intrahepatic biliary ductal dilatation of indeterminate etiology. Common bile duct measures 11 mm in greatest caliber. Correlation with alkaline phosphatase and bilirubin levels is suggested. This could be related to reservoir phenomenon status post cholecystectomy. Mild hepatosplenomegaly. Fluid filled mildly dilated stable loop of small bowel within left upper quadrant which is unchanged compared to previous examination in August 2016 and may be related to altered post-surgical anatomy in this location. This practice has been consulted to evaluate patient's complaint of abdominal pain with finding of common bile duct dilatation. Plan: Maintain NPO Will order MRCP Monitor labs Continue PPI Pain meds and antiemetics as per attending Supportive care Further recommendations to follow This patient has been seen by myself and Dr. Henderson and this not is written on his behalf. <Marisol Campos - Last Filed: 11/01/17 10:05> (1) Abdominal pain Status: Acute Code(s): R10.9 - Unspecified abdominal pain (2) Common bile duct dilatation Status: Acute Code(s): K83.8 - Other specified diseases of biliary tract - Plan Patient seen and examined Agree with above Continue with current supportive care Monitor labs At this point it seems the patient is most interested in getting her pain meds I discussed with the patient the potential for worsening pain with pain meds as a result of worsening gastroparesis she understands this but at this point her focus is the pain The patient is advised to be cautious with pain meds patient will also need to be on prokinetics such as erythromycin and Reglan or even bethanechol MRCP is basically unremarkable We will proceed with an upper endoscopy and possible endoscopic ultrasound tomorrow so as to further evaluate pain and chronic pancreatitis and dilated bile duct <Abdi Henderson - Last Filed: 11/01/17 19:15>
--- NOTE | 2017-11-01 13:28 | MR ---
EXAM DATE: 11/01/2017 1:23 PM EDT AGE/SEX: 47 years / Female INDICATIONS: Abdominal pain. CLINICAL DATA: This is the patient's subsequent encounter. Patient reports that signs and symptoms h ave been present for 2 days and indicates a pain score of 5/10. MEDICAL/SURGICAL HISTORY: None. Tubal ligation. COMPARISON: [facility] [place] W CONTRAST, 10/31/2017. . TECHNIQUE: Multiplanar, multisequence images of the abdomen were obtained without contrast including dedicated cholangiographic images. FINDINGS: Liver: The liver is homogeneous and normal in signal intensity with no focal defects. Intrahepatic Bile Ducts: There is no intrahepatic biliary ductal dilatation. Common Bile Duct: The common bile duct is prominent at 10 mm. but within normal limits status post c holecystectomy. No filling defects or obstructing lesions are identified. Gallbladder: Surgically absent. Pancreas: The pancreas appears normal in signal with no focal parenchymal abnormalities. The pancrea tic duct is normal in caliber with no filling defects, or obstructing lesions identified. CONCLUSION: 1. Common bile duct is unremarkable. Status post cholecystectomy. No obstructing stone or stenosis i dentified Electronically signed by: Ray Og MD 11/01/2017 1:26 PM EDT
--- NOTE | 2017-11-01 19:11 | ECG ---
Date Performed: 10/31/2017 Time Performed: 15:26:30 PTAGE: 47 years EKG: Sinus rhythm WITH SINUS ARRHYTHMIA NORMAL ECG PREVIOUS TRACING : 09/04/2016 11.50 Since the previous tracing, no significant change noted DOCTOR: Valentin Blackwell Interpretating Date/Time 11/01/2017 19:10:59
[2017-11-02] MEDS: Morphine Inj 4 MG/ML Vial IV.PUSH PRN ×5 (02:47→23:38)
[2017-11-02] MEDS: Pantoprazole Inj 40 MG Vial IV.PUSH SCH ×2 (06:10→18:16)
--- NOTE | 2017-11-02 11:07 | P.PCN ---
Date of procedure: 11/02/17 Pre-op diagnosis: Abdominal pain, dilated common bile duct, chronic pancreatitis , dysphagia Procedure: PROCEDURE PERFORMED EGD with biopsy followed by endoscopic ultrasound PROCEDURE: The procedure, risks and benefits were discussed with Patient/POA and informed consent was obtained. Anesthesia sedated Patient with Diprivan. Patient was placed in the left lateral decubitus position. EGD: The Pentax videoscope was introduced through the oropharynx and advanced to the second portion of the duodenum under direct visualization. Retroflexion was performed in the stomach. FINDINGS: The esophagus this appeared to be unremarkable with normal limits except for some mild irregularity of the Z line which was biopsied The stomach there was a small hiatal hernia there is also some patchy erythema noted in the antrum and to a lesser extent in the gastric body there was also a suture noted in the anterior wall of the gastric body of unclear significance probably where her prior GJ tube had existed but other than the patchy erythema the stomach was unremarkable biopsies were taken from the antrum for further evaluation The duodenum this appeared to be unremarkable and within normal limits EUS: The Pentax videoscope was introduced through the oropharynx and advanced to the second portion of the duodenum . FINDINGS: The pancreatic parenchyma appeared to be unremarkable and within normal limits from head to tail no distinct calcifications or irregularities mildly inhomogeneous but no tumors no lumps or bumps and no dilated pancreatic duct The common bile duct did appear to be dilated to about 11 mm but no filling defects no irregularities of the bile duct wall and it had a gradual taper to the ampulla which appeared to be unremarkable No gallbladder was seen No lymphadenopathy ESTIMATED BLOOD LOSS: None SPECIMENS REMOVED: Esophageal and gastric biopsies COMPLICATIONS: None IMPRESSION: Irregular Z line Small hiatal hernia Gastritis Dilated common bile duct PLAN: Await biopsies Continue with current supportive care Minimize pain meds and narcotics Consideration can be made for a GJ tube if symptoms persist Anesthesia: RUBENA Surgeon: Abdi Henderson Condition: stable Disposition: floor
--- NOTE | 2017-11-02 17:48 | P.PN ---
Subjective Interval history: Follow up for abdominal pain, gastroparesis. The patient is seen s/p EGD today. She reports continued diffuse upper abdominal pain. She reports occasional nausea but no vomiting. Denies fevers/chills. She reports no BM since Sunday morning, however has had minimal oral intake over the past few days. She states she feels very weak, and would like to go to rehab if possible. Physical Exam Vital signs: Vital Signs 11/01/17 20:00 11/01/17 23:29 11/02/17 03:59 Temperature 98.2 F 97.9 F 98.1 F Pulse Rate 71 58 L 72 Respiratory Rate 16 16 16 Blood Pressure 122/56 L 100/59 L 111/59 L Pulse Oximetry 94 L 94 L 97 11/02/17 04:00 11/02/17 07:35 11/02/17 10:54 Temperature 98.1 F 98.2 F 98 F Pulse Rate 72 79 91 H Respiratory Rate 16 16 16 Blood Pressure 111/59 L 107/59 L 126/71 Pulse Oximetry 96 98 11/02/17 11:00 11/02/17 11:15 11/02/17 11:30 Temperature 97.5 F L Pulse Rate 91 H 90 94 H Respiratory Rate 15 15 16 Blood Pressure 123/68 127/66 126/65 Pulse Oximetry 98 98 99 11/02/17 12:00 11/02/17 16:00 Temperature 98.4 F Pulse Rate 88 76 Respiratory Rate 18 16 Blood Pressure 125/74 98/52 L Pulse Oximetry 94 L 93 L Intake & Output 11/01/17 11/02/17 11/02/17 18:59 06:59 18:59 Intake Total 0 / 0 Output Total 350 / 350 Balance -350 / -350 Weight 63.049 kg Intake: Oral 0 / 0 Output: Urine 350 / 350 Other: Date of Last Bowel Movement 10/30/17 10/30/17 Narrative: GENERAL: Well-nourished, well-developed middle-aged female patient in [facility]. SKIN: Warm and dry. No rash. HEENT: Normocephalic. Atraumatic. Pupils equal and round. Mucous membranes pink and moist. CARDIOVASCULAR: Regular rate and rhythm. No murmur appreciated. RESPIRATORY: No accessory muscle use. Clear to auscultation. Breath sounds equal bilaterally. GASTROINTESTINAL: Abdomen soft, nondistended, mild epigastric TTP. Normoactive bowel sounds x4. MUSCULOSKELETAL: No obvious deformities. Extremities without clubbing, cyanosis , or edema. NEUROLOGICAL: Awake and alert. No obvious cranial nerve deficits. Normal speech. PSYCHIATRIC: Appropriate mood and affect; insight and judgment normal. Results - Labs CBC & Chem 7: 11/01/17 03:23 11/01/17 03:23 - Imaging Abdomen/Pelvis CT 10/31/17 11:35 CONCLUSION: 1. Mild extrahepatic and central intrahepatic biliary ductal dilatation of indeterminate etiology. Common bile duct measures 11 mm in greatest caliber. Correlation with alkaline phosphatase and bilirubin levels is suggested. This could be related to reservoir phenomenon status post cholecystectomy. 2. Mild hepatosplenomegaly. 3. Fluid filled mildly dilated stable loop of small bowel within left upper quadrant which is unchanged compared to previous examination in August 2016 and may be related to altered post-surgical anatomy in this location. Chest X-Ray 10/31/17 11:35 CONCLUSION: Negative examination. Head CT 10/31/17 12:37 CONCLUSION: 1. Negative CT Head non contrast. . Cholangiopancreatography MRI 11/01/17 10:06 CONCLUSION: 1. Common bile duct is unremarkable. Status post cholecystectomy. No obstructing stone or stenosis identified - Procedures Date of procedure: 11/02/17 Pre-op diagnosis: Abdominal pain, dilated common bile duct, chronic pancreatitis , dysphagia Procedure: EGD with biopsy followed by endoscopic ultrasound IMPRESSION: Irregular Z line Small hiatal hernia Gastritis Dilated common bile duct PLAN: Await biopsies Continue with current supportive care Minimize pain meds and narcotics Consideration can be made for a GJ tube if symptoms persist Assessment and Plan - Plan 47-year-old female with past medical history of gastroparesis, cholecystectomy, CP, MS who initially came in to the hospital for complaints of abdominal pain but subsequently had chest pain after CT scan Intractable abdominal pain/nausea/vomiting: Suspect flare of gastroparesis. Patient has history of G J-tube and is in the process of having this replaced, reportedly appointment at [facility] Sunday -CT abd/pelvis showed mild extrahepatic and central intra-hepatic biliary ductal dilatation of indeterminate etiology. Common bile duct measures 11 mm in greatest caliber. Correlation with alkaline phosphatase and bilirubin levels is suggested. This could be related to reservoir phenomenon status post cholecystectomy. She has mild hepatosplenomegaly. Fluid-filled mildly dilated stable loop of small bowel within the left upper quadrant which is unchanged compared to previous examination in August 2016 and may be related to altered postsurgical anatomy in this location. -Zofran for nausea -Schedule IV Reglan tidac -Consult GI, appreciate recommendations -MRCP 11/01 showed Common bile duct is unremarkable. Status post cholecystectomy. No obstructing stone or stenosis identified. -EGD 11/02 showed Irregular Z line, Small hiatal hernia, Gastritis, Dilated common bile duct -Diet advanced -Await further recommendations from GI, to consider GJ tube during this admission Black stools -Hemoccult negative in the ED -H&H currently stable at 14.9 --> 14.1. -Continue pantoprazole IV -no further stools since 10/31 Chest pain: strongly suspect GI related, pain more epigastric region, however will rule out ACS -Chest pain was fleeting lasting few seconds or less. Intermittent, pressure like mid epigastric towards left lower chest. Tender to palpation -Morphine was given, nitro SL PRN, Allergic to ASA -ACS ruled out with negative serial cardiac enzymes and EKG without acute ischemic changes. -Monitor on cardiac telemetry -No further chest pains, only epigastric/GI complaints Anxiety: patient complaining of ongoing anxiety and panic attacks in the hospital, states she used to be on medications for this -will give xanax 0.25mg po q8h prn -explained to the patient that this medication will only be available while in the hospital and she will need to f/up with PCP Dr. Montero or psychiatrist to obtain treatment/prescriptions for her anxiety Generalized Weakness/MS: chronic -patient requesting to be placed in rehab -case management to assist with discharge planning All other medical conditions stable, continue home medications as appropriate. DVT Prophylaxis: teds/SCDs; avoid chemical prophylaxis with concern for GI bleed and possible procedures. Discharge Planning: Discharge pending further clinical improvement. Not yet tolerating oral intake. GI to decide on GJ during hospitalization or outpatient. Patient requesting to go to rehab, case management to assist with discharge planning.
[2017-11-02] MEDS: ALPRAZolam 0.25 MG Tablet PO PRN (20:45)
[2017-11-03] MEDS: Morphine Inj 4 MG/ML Vial IV.PUSH PRN ×5 (06:11→23:54)
[2017-11-03] MEDS: Pantoprazole Inj 40 MG Vial IV.PUSH SCH (06:12)
[2017-11-03] MEDS: ALPRAZolam 0.25 MG Tablet PO PRN ×2 (08:42→22:19)
--- NOTE | 2017-11-03 08:56 | P.PNGI ---
Subjective Interval history: Patient is awake sitting in the bed preparing to eat breakfast. States she is having some nausea but no vomiting and does appear to have some appetite. Mild upper abdominal pain, but most pain appears to be in her back and legs. Current hemoglobin 14.1 <Kelsey Nogueira - Last Filed: 11/03/17 11:30> Physical Exam Vital signs: Vital Signs 11/02/17 10:54 11/02/17 11:00 11/02/17 11:15 Temperature 98 F Pulse Rate 91 H 91 H 90 Respiratory Rate 16 15 15 Blood Pressure 126/71 123/68 127/66 Pulse Oximetry 98 98 98 11/02/17 11:30 11/02/17 12:00 11/02/17 16:00 Temperature 97.5 F L 98.4 F Pulse Rate 94 H 88 76 Respiratory Rate 16 18 16 Blood Pressure 126/65 125/74 98/52 L Pulse Oximetry 99 94 L 93 L 11/02/17 18:40 11/02/17 19:27 11/02/17 20:00 Temperature 98.4 F 98.4 F Pulse Rate 86 86 Respiratory Rate 16 16 Blood Pressure 108/58 L 113/58 L 113/58 L Pulse Oximetry 94 L 94 L 11/02/17 23:14 11/02/17 23:53 11/03/17 03:46 Temperature 97.9 F 97.9 F 98.1 F Pulse Rate 76 76 71 Respiratory Rate 16 16 16 Blood Pressure 103/58 L 103/58 L 101/59 L Pulse Oximetry 96 96 96 11/03/17 04:00 11/03/17 08:00 Temperature 98.0 F 98.0 F Pulse Rate 71 74 Respiratory Rate 16 14 Blood Pressure 101/59 L 116/67 Pulse Oximetry 96 93 L Intake & Output 11/02/17 11/03/17 11/03/17 18:59 06:59 18:59 Intake Total 0 / 0 Output Total 1000 / 1000 Balance -1000 / -1000 Weight 63.049 kg Intake: Oral 0 / 0 Output: Urine 1000 / 1000 - Constitutional no acute distress, cachectic, chronically ill appearing, disheveled - Routine HEENT Exam Head: Present: normocephalic ENT: Present: mucous membranes moist (Edentulous) - Routine Neck Exam Present: supple - Routine Respiratory Exam Present: accessory muscle use (No obvious shortness of breath or wheezing) - Routine Cardiovascular Exam Present: S1, S2 (Distant) - Routine Abdominal Exam Present: soft (Round, mild upper abdominal discomfort but no obvious tenderness , healed previous GJ site) - Routine Skin Exam Present: intact - Routine Neurological Exam Present: alert <Kelsey Nogueira - Last Filed: 11/03/17 11:30> Vital signs: Vital Signs 11/03/17 03:46 11/03/17 04:00 11/03/17 08:00 Temperature 98.1 F 98.0 F 98.0 F Pulse Rate 71 71 94 H Respiratory Rate 16 16 14 Blood Pressure 101/59 L 101/59 L 116/67 Pulse Oximetry 96 96 93 L 11/03/17 12:00 11/03/17 16:00 11/03/17 20:00 Temperature 97.8 F 97.7 F 97.8 F Pulse Rate 77 83 86 Respiratory Rate 16 16 16 Blood Pressure 110/69 111/57 L 118/73 Pulse Oximetry 94 L 94 L 96 11/03/17 23:57 Temperature 97.6 F Pulse Rate 78 Respiratory Rate 16 Blood Pressure 108/56 L Pulse Oximetry 96 Intake & Output 11/03/17 11/03/17 11/04/17 06:59 18:59 06:59 Intake Total 0 / 0 680 / 680 Output Total 1000 / 1000 1000 / 1000 Balance -1000 / -1000 -320 / -320 Weight 63.049 kg Intake: Oral 0 / 0 680 / 680 Output: Urine 1000 / 1000 1000 / 1000 Other: # Voids 2 Date of Last Bowel Movement 10/30/17 10/30/17 <Abdi Henderson - Last Filed: 11/04/17 00:17> Results - Labs CBC & Chem 7: 11/01/17 03:23 11/01/17 03:23 - Procedures Date of procedure: 11/02/17 Pre-op diagnosis: Abdominal pain, dilated common bile duct, chronic pancreatitis , dysphagia Procedure: EGD with biopsy followed by endoscopic ultrasound IMPRESSION: Irregular Z line Small hiatal hernia Gastritis Dilated common bile duct PLAN: Await biopsies Continue with current supportive care Minimize pain meds and narcotics Consideration can be made for a GJ tube if symptoms persist <Kelsey Nogueira - Last Filed: 11/03/17 11:30> - Labs CBC & Chem 7: 11/01/17 03:23 11/01/17 03:23 <Abdi Henderson - Last Filed: 11/04/17 00:17> Assessment and Plan (1) Abdominal pain Status: Acute Code(s): R10.9 - Unspecified abdominal pain (2) Common bile duct dilatation Status: Acute Code(s): K83.8 - Other specified diseases of biliary tract - Plan 11/03/2017 patient is resting in the bed. Currently patient is preparing to eat regular breakfast with muffin , solid foods patient states some nausea but no vomiting and 890% of her breakfast . Patient states chronic pain with her back and legs and feels that she has to take pain meds for her comfort. Discussed with her pain meds which could be assisting in her nausea and symptoms of bloating. Encourage patient to eat solid food , chew her food slowly head of bed elevated after eating , and increased mobility sitting up in chair today . Currently patient is on Reglan and will continue to evaluate her nausea and vomiting symptoms as well as any bloating . if patient's symptoms persist may consider GJ tube. Having GJ tube replaced would be patient's preference. Status post EGD with EUS on 11/02/2017. Findings include small hiatal hernia, gastritis, dilated common bile duct and irregular Z line. Biopsies were done of the esophagus and gastric area. There were no complications. Results discussed with her. Patient states previous GI workups have been in the [place] area but is hoping she can transition to the [facility] area since she lives in [place]. This was discussed with the case sealer and nurse. PLAN: Diet Biopsies pending Supportive care Monitor labs Reglan Zofran Protonix Minimize pain meds including narcotics Monitor symptoms and consider GJ tube in the future if needed, will need to evaluate effectiveness of her medications Patient was seen per myself and Dr. Henderson, note was written on his behalf <Kelsey Nogueira - Last Filed: 11/03/17 11:30> (1) Abdominal pain Status: Acute Code(s): R10.9 - Unspecified abdominal pain (2) Common bile duct dilatation Status: Acute Code(s): K83.8 - Other specified diseases of biliary tract - Plan Patient seen and examined Agree with above Continue with current supportive care Monitor labs No much to add from a GI perspective at this point we would definitely recommend minimizing narcotics maximizing anti-emetics and prokinetics such as Reglan and erythromycin And if all fails then a GJ tube would be in order But at this point it looks like the patient is responding to current treatments We will sign off <Abdi Henderson E - Last Filed: 11/04/17 00:17>
--- NOTE | 2017-11-03 12:47 | P.PN ---
Subjective Interval history: Follow-up on patient with nausea, abdominal pain, gastroparesis. Patient seen and examined. Patient able to tolerate breakfast that included a bagel this morning however complains of nausea. No episodes of vomiting. She states that she has long-standing dysphagia and frequently coughs with oral intake. She denies any fever or chills. She continues to have abdominal pain. She has not had a bowel movement since admission. Physical Exam Vital signs: Vital Signs 11/02/17 16:00 11/02/17 18:40 11/02/17 19:27 Temperature 98.4 F Pulse Rate 76 86 Respiratory Rate 16 16 Blood Pressure 98/52 L 108/58 L 113/58 L Pulse Oximetry 93 L 94 L 11/02/17 20:00 11/02/17 23:14 11/02/17 23:53 Temperature 98.4 F 97.9 F 97.9 F Pulse Rate 86 76 76 Respiratory Rate 16 16 16 Blood Pressure 113/58 L 103/58 L 103/58 L Pulse Oximetry 94 L 96 96 11/03/17 03:46 11/03/17 04:00 11/03/17 08:00 Temperature 98.1 F 98.0 F 98.0 F Pulse Rate 71 71 94 H Respiratory Rate 16 16 14 Blood Pressure 101/59 L 101/59 L 116/67 Pulse Oximetry 96 96 93 L Intake & Output 11/02/17 11/03/17 11/03/17 18:59 06:59 18:59 Intake Total 0 / 0 Output Total 1000 / 1000 Balance -1000 / -1000 Weight 63.049 kg Intake: Oral 0 / 0 Output: Urine 1000 / 1000 Other: Date of Last Bowel Movement 10/30/17 Narrative: GENERAL: Well-nourished, well-developed middle-aged female patient. Awake and alert. In no acute distress. SKIN: Warm and dry. No rash. HEENT: Normocephalic. Atraumatic. Pupils equal and round. Mucous membranes pink and moist. CARDIOVASCULAR: Regular rate and rhythm. No murmur appreciated. RESPIRATORY: No accessory muscle use. Clear to auscultation. Breath sounds equal bilaterally. GASTROINTESTINAL: Abdomen soft, nondistended, mild epigastric and left sided abdominal TTP. Normoactive bowel sounds x4. MUSCULOSKELETAL: No obvious deformities. Extremities without clubbing, cyanosis , or edema. NEUROLOGICAL: Awake and alert. No obvious cranial nerve deficits. Normal speech. PSYCHIATRIC: Appropriate mood and affect; insight and judgment normal. Results - Labs CBC & Chem 7: 11/01/17 03:23 11/01/17 03:23 - Procedures Date of procedure: 11/02/17 Pre-op diagnosis: Abdominal pain, dilated common bile duct, chronic pancreatitis , dysphagia Procedure: EGD with biopsy followed by endoscopic ultrasound IMPRESSION: Irregular Z line Small hiatal hernia Gastritis Dilated common bile duct PLAN: Await biopsies Continue with current supportive care Minimize pain meds and narcotics Consideration can be made for a GJ tube if symptoms persist Assessment and Plan - Plan 47-year-old female with past medical history of gastroparesis, cholecystectomy, CP, MS who initially came in to the hospital for complaints of abdominal pain but subsequently had chest pain after CT scan Intractable abdominal pain/nausea/vomiting: Suspect flare of gastroparesis. Patient has history of G J-tube and is in the process of having this replaced, reportedly appointment at [facility] Sunday CT abd/pelvis showed mild extrahepatic and central intra-hepatic biliary ductal dilatation of indeterminate etiology. Common bile duct measures 11 mm in greatest caliber. Correlation with alkaline phosphatase and bilirubin levels is suggested. This could be related to reservoir phenomenon status post cholecystectomy. She has mild hepatosplenomegaly. Fluid-filled mildly dilated stable loop of small bowel within the left upper quadrant which is unchanged compared to previous examination in August 2016 and may be related to altered postsurgical anatomy in this location. MRCP 11/01 showed Common bile duct is unremarkable. Status post cholecystectomy. No obstructing stone or stenosis identified. EGD 11/02 showed Irregular Z line, Small hiatal hernia, Gastritis, Dilated common bile duct -Continue Zofran for nausea -Continue scheduled IV Reglan tidac -GI following, appreciate assistance. HAYLEE Reyes, possible G/J tube placement this admission. -Diet advanced, tolerating but with c/o nausea -Continue on Protonix Dysphagia -Consult speech therapy for swallow evaluation Black stools Hemoccult negative in the ED -H&H currently stable at 14.9 --> 14.1. -Continue Protonix, change to po -no further stools since 10/31. Begin PeriColace BID. Chest pain: strongly suspect GI related, pain more epigastric region, however will rule out ACS Chest pain was fleeting lasting few seconds or less. Intermittent, pressure like mid epigastric towards left lower chest. Tender to palpation -Morphine was given, nitro SL PRN, Allergic to ASA -ACS ruled out with negative serial cardiac enzymes and EKG without acute ischemic changes. -Monitor on cardiac telemetry -No further chest pains, only epigastric/GI complaints Anxiety: patient complaining of ongoing anxiety and panic attacks in the hospital, states she used to be on medications for this -will give xanax 0.25mg po q8h prn -explained to the patient that this medication will only be available while in the hospital and she will need to f/up with PCP Dr. Montero or psychiatrist to obtain treatment/prescriptions for her anxiety Generalized Weakness/MS: chronic -Continue with PT -patient requesting to be placed in rehab -case management to assist with discharge planning. Asad to evaluate patient for possible acceptance. All other medical conditions stable, continue home medications as appropriate. DVT Prophylaxis: teds/SCDs; Heparin sq Code Status: FULL Discussed Condition With: patient, nursing staff, Bentley Aldridge ARNP Discharge Planning: Discharge pending GI clearance. Will need rehab at discharge, CM assisting with D/C planning.
[2017-11-03] MEDS: Senna/Docusate Sodium 8.6/50 MG Tablet PO SCH ×2 (13:38→20:01)
[2017-11-03] MEDS: Heparin - SQ 10,000 UNITS/ML Vial SQ SCH (20:01)
[2017-11-04] MEDS: Morphine Inj 4 MG/ML Vial IV.PUSH PRN ×4 (06:36→23:20)
--- NOTE | 2017-11-04 09:50 | P.PN ---
Subjective Interval history: Follow-up on patient with nausea, abdominal pain, gastroparesis. Patient seen and examined. Patient continues to complain of persistent nausea and abdominal pain. Denies any episodes of vomiting. Able to tolerate diet. Patient evaluated by speech therapy, initially concern for failing swallow evaluation however follow-up modified barium swallow uneventful. Patient cleared for mechanical soft diet. Patient denies any chest pain or shortness of breath. Physical Exam Vital signs: Vital Signs 11/03/17 12:00 11/03/17 16:00 11/03/17 20:00 Temperature 97.8 F 97.7 F 97.8 F Pulse Rate 77 83 76 Respiratory Rate 16 16 16 Blood Pressure 110/69 111/57 L 118/73 Pulse Oximetry 94 L 94 L 96 11/03/17 23:57 11/04/17 04:00 11/04/17 08:00 Temperature 97.6 F 98.1 F 97.9 F Pulse Rate 78 55 L 68 Respiratory Rate 16 16 16 Blood Pressure 108/56 L 88/54 L 104/58 L Pulse Oximetry 96 99 95 Intake & Output 11/03/17 11/04/17 11/04/17 18:59 06:59 18:59 Intake Total 680 / 680 720 / 720 Output Total 1000 / 1000 500 / 500 Balance -320 / -320 220 / 220 Intake: Oral 680 / 680 720 / 720 Output: Urine 1000 / 1000 500 / 500 Other: # Voids 2 Date of Last Bowel Movement 10/30/17 10/30/17 Narrative: GENERAL: Well-nourished, well-developed middle-aged female patient. Awake and alert. In no acute distress. SKIN: Warm and dry. No rash. HEENT: Normocephalic. Atraumatic. Pupils equal and round. Mucous membranes pink and moist. Edentulous. CARDIOVASCULAR: Regular rate and rhythm. No murmur appreciated. RESPIRATORY: No accessory muscle use. Clear to auscultation. Breath sounds equal bilaterally. GASTROINTESTINAL: Abdomen soft, nondistended, mild diffuse tenderness to palpation. Normoactive bowel sounds x4. MUSCULOSKELETAL: No obvious deformities. Extremities without clubbing, cyanosis , or edema. NEUROLOGICAL: Awake and alert. No obvious cranial nerve deficits. Normal speech. PSYCHIATRIC: Appropriate mood and affect; insight and judgment normal. Results - Labs CBC & Chem 7: 11/01/17 03:23 11/01/17 03:23 - Procedures Date of procedure: 11/02/17 Pre-op diagnosis: Abdominal pain, dilated common bile duct, chronic pancreatitis , dysphagia Procedure: EGD with biopsy followed by endoscopic ultrasound IMPRESSION: Irregular Z line Small hiatal hernia Gastritis Dilated common bile duct PLAN: Await biopsies Continue with current supportive care Minimize pain meds and narcotics Consideration can be made for a GJ tube if symptoms persist Assessment and Plan - Plan 47-year-old female with past medical history of gastroparesis, cholecystectomy, CP, MS who initially came in to the hospital for complaints of abdominal pain but subsequently had chest pain after CT scan Intractable abdominal pain/nausea/vomiting: Suspect flare of gastroparesis. Patient has history of G J-tube and is in the process of having this replaced, reportedly appointment at [facility] Sunday CT abd/pelvis showed mild extrahepatic and central intra-hepatic biliary ductal dilatation of indeterminate etiology. Common bile duct measures 11 mm in greatest caliber. Correlation with alkaline phosphatase and bilirubin levels is suggested. This could be related to reservoir phenomenon status post cholecystectomy. She has mild hepatosplenomegaly. Fluid-filled mildly dilated stable loop of small bowel within the left upper quadrant which is unchanged compared to previous examination in August 2016 and may be related to altered postsurgical anatomy in this location. MRCP 11/01 showed Common bile duct is unremarkable. Status post cholecystectomy. No obstructing stone or stenosis identified. EGD 11/02 showed Irregular Z line, Small hiatal hernia, Gastritis, Dilated common bile duct -Continue Zofran for nausea -Continue scheduled Reglan tidac, change to p.o. -GI following, appreciate assistance. GI has signed off. -Continue on Protonix Possible MS exacerbation Patient has hx of chronic MS since 2002 MRI brain shows nonspecific white matter disease MRI cervical spine shows mild deg changes MR thoracic spine unremarkable -Neurology following, appreciate assistance. Started on IV steroids 3 days. May be continued at rehab. -continue with PT -possible d/c to [facility], spoke with [facility], plan to submit for insurance auth in am Dysphagia -Evaluated by speech therapy, initially failed swallow evaluation. However, follow-up modified barium swallow unremarkable. Black stools Hemoccult negative in the ED -H&H currently stable at 14.9 --> 14.1. -Continue Protonix, change to po -no further stools since 10/31. Begin PeriColace BID, continue. Chest pain: strongly suspect GI related, pain more epigastric region, however will rule out ACS Chest pain was fleeting lasting few seconds or less. Intermittent, pressure like mid epigastric towards left lower chest. Tender to palpation -Morphine was given, nitro SL PRN, Allergic to ASA -ACS ruled out with negative serial cardiac enzymes and EKG without acute ischemic changes. -Monitor on cardiac telemetry -No further chest pains, only epigastric/GI complaints Anxiety: patient complaining of ongoing anxiety and panic attacks in the hospital, states she used to be on medications for this -will give xanax 0.25mg po q8h prn -explained to the patient that this medication will only be available while in the hospital and she will need to f/up with PCP Dr. Montero or psychiatrist to obtain treatment/prescriptions for her anxiety All other medical conditions stable, continue home medications as appropriate. DVT Prophylaxis: teds/SCDs; Heparin sq Code Status: FULL Discussed Condition With: patient, nursing staff, Dr. Tafoya Discharge Planning: Will need rehab at discharge, CM assisting with D/C planning. Awaiting insurance auth for possible [facility] placement.
[2017-11-04] MEDS ORDERED: Pantoprazole Inj 40 MG Vial IV.PUSH SCH (10:00)
[2017-11-04] MEDS: Heparin - SQ 10,000 UNITS/ML Vial SQ SCH ×2 (10:15→21:03)
[2017-11-04] MEDS ORDERED: Dextrose 5% in Water Inj 1,000 ML IV.CONT SCH (10:45)
[2017-11-04] MEDS: Senna/Docusate Sodium 8.6/50 MG Tablet PO SCH ×2 (11:43→21:03)
[2017-11-04] MEDS: Metoclopramide 10 MG Tablet PO SCH ×3 (11:43→21:03)
--- NOTE | 2017-11-04 11:45 | P.CONNEU ---
History of Present Illness Service: Neurology Primary Care Provider: No Primary Care Physician Chief Complaint: Multiple sclerosis History of Present Illness: Pleasant 47-year-old female admitted for abdominal pain felt to have gastroparesis exacerbation possibly seen by GI. History of multiple sclerosis that was diagnosed back in 2002 in [place] where she is from. She is relocated to the state living with her sister for the past 2 years. States she has not established with any neurologist as of yet. States it affected her vision her left side she had progressive difficulty walking and will use a walker or wheelchair due to recurrent falls. Has had allergies or side effects to multiple MS medications including Copaxone , Betaseron, Avonex, Tecfidera. She has responded well to steroids. She has been feeling weaker of late. Review of Systems All other systems reviewed negative except as stated in HPI [facility] - History History Provided By: Patient - Medical History Medical History: Medical History (Last Reviewed 11/04/17 @ 07:57 by Wendy Pastrana, EMISSIONS ENGINEER) Anxiety Cerebral palsy Chronic pancreatitis Depression Fistula Gastroparesis Hypokalemia Intestinal perforation Lupus (systemic lupus erythematosus) Multiple sclerosis PTSD (post-traumatic stress disorder) Panic attacks Spina bifida - Surgical History Surgical History: Surgical History (Last Reviewed 11/02/17 @ 09:03 by Melly Silva) H/O cardiac catheterization H/O tubal ligation History of bowel resection History of colposcopy with cervical biopsy Hx of cholecystectomy - Family History Family History: Family History (Last Updated 10/31/17 @ 17:36 by HAYLEE Chatterjee) Other Heart problem - Tobacco History Second Hand Smoke Exposure: Yes Tobacco Use In Past 30 Days: Yes Smoking Status: Current every day smoker Tobacco Type: Cigarettes Cigarettes Per Day: 5 - Alcohol History How Often Do You Have a Drink Containing Alcohol: Never - Substance Use History Substance History: No History of Abuse - Substance Use Type Marijuana Status: Active Route Used: Inhalation - Travel History Recent Travel in the [place] Within the Last 8 Weeks: No Recent Travel Out of the Country Within the Last 8 Weeks: No - Immunization History Tetanus Immunization: Unsure Hx Influenza Vaccine This Season: No Medications and Allergies Active Medications: Active Medications Acetaminophen (Tylenol) 650 mg PO Q4H PRN PRN Reason: Temp > 100.4, SARGENT, Pain 1-5 Hydrocodone Bitart/Acetaminophen (Simpson 5/325) 1 tab PO Q6H PRN PRN Reason: PAIN SCALE 1 TO 5 Hydrocodone Bitart/Acetaminophen (Simpson 10/325) 1 tab PO Q6H PRN PRN Reason: PAIN SCALE 6 TO 10 Al Hydroxide/Mg Hydroxide (Milk Of Magnesia Liq) 30 ml PO Q12H PRN PRN Reason: Mild Constipation Alprazolam (Xanax) 0.25 mg PO Q8H PRN PRN Reason: anxiety/panic attack Last Admin: 11/03/17 22:19 Dose: 0.25 mg Bisacodyl (Dulcolax Supp) 10 mg RECTAL DAILY PRN PRN Reason: SEVERE CONSITIPATION Heparin Sodium (Porcine) (Heparin Inj) 5,000 units SQ Q12HR [facility] Last Admin: 11/04/17 10:15 Dose: 5,000 units Sodium Chloride (Ns Inj) 1,000 mls @ 0 mls/hr IV.SIG BOLUS [facility] Dextrose (D5w Inj) 1,000 mls @ 42 mls/hr IV.CONT .[id number] [facility] Lactulose (Lactulose Liq) 30 ml PO DAILY PRN PRN Reason: SEVERE CONSITIPATION Lorazepam (Ativan Inj) 1 mg IV.PUSH ONCE PRN PRN Reason: claustrophobia Last Admin: 11/01/17 12:23 Dose: 1 mg Lorazepam (Ativan Inj) 0.5 mg IV.PUSH Q8H PRN PRN Reason: ANXIETY AND/OR AGITATION Last Admin: 11/04/17 10:16 Dose: 0.5 mg Metoclopramide HCl (Reglan) 10 mg PO ACHS [facility] Stop: 11/11/17 07:59 Morphine Sulfate (Morphine Inj) 2 mg IV.PUSH Q4H PRN PRN Reason: PAIN SCALE 1 TO 10 Last Admin: 11/04/17 10:21 Dose: 2 mg Nitroglycerin (Nitrostat Sl) 0.4 mg SL Q5M PRN PRN Reason: CHEST PAIN Pantoprazole Sodium (Protonix) 40 mg PO DAILY [facility] Pantoprazole Sodium (Protonix Inj) 40 mg IV.PUSH Q24H [facility] Last Admin: 11/04/17 10:17 Dose: 40 mg Senna/Docusate Sodium (Monica-Colace) 1 tab PO BID [facility] Last Admin: 11/03/17 20:01 Dose: 1 tab Sennosides (Senokot) 17.2 mg PO Q12H PRN PRN Reason: Moderate Constipation Allergies Allergy/AdvReac Type Severity Reaction Status Date / Time cefazolin Allergy Severe RASH Unverified 10/31/17 12:37 ciprofloxacin Allergy Severe PANCREATITI Unverified 10/31/17 12:37 S diclofenac Allergy Severe GI Unverified 10/31/17 12:37 etodolac Allergy Severe GI Unverified 10/31/17 12:37 flurbiprofen Allergy Severe GI Unverified 10/31/17 12:37 ibuprofen Allergy Severe GI Unverified 10/31/17 12:37 indomethacin Allergy Severe GI Unverified 10/31/17 12:37 interferon beta-1a Allergy Severe ANAPHALACTI Unverified 10/31/17 12:37 C Interferons Allergy Severe ANAPHALACTI Unverified 10/31/17 12:37 C ketoprofen Allergy Severe GI Unverified 10/31/17 12:37 ketorolac Allergy Severe GI Unverified 10/31/17 12:37 latex Allergy Severe ANAPHALACTI Unverified 10/31/17 12:37 C naproxen Allergy Severe GI Unverified 10/31/17 12:37 oxaprozin Allergy Severe GI Unverified 10/31/17 12:37 penicillin G Allergy Severe ANAPHALACTI Unverified 10/31/17 12:37 C theophylline Allergy Severe TACHYCARDIA Unverified 10/31/17 12:37 tramadol Allergy Severe GI Unverified 10/31/17 12:37 acetaminophen Allergy Intermediate LIVER Unverified 10/31/17 12:37 aspirin Allergy Intermediate RASH Unverified 10/31/17 12:37 Fish Containing Products Allergy Intermediate RASH Unverified 10/31/17 12:37 gabapentin Allergy Intermediate HIVES Unverified 10/31/17 12:37 COPAXONE Allergy Severe ANAPHALACTI Uncoded 10/31/17 12:37 C *MDRO Multi-Drug Resistant AdvReac Unknown no reaction Uncoded 10/31/17 12:37 Organism Home Medications Medication Instructions Recorded Confirmed Type cyclobenzaprine 10 mg PO HS 10/31/17 10/31/17 History famotidine [Pepcid] 40 mg PO BID 10/31/17 10/31/17 History Exam Vital signs: Vital Signs 11/03/17 12:00 11/03/17 16:00 11/03/17 20:00 Temperature 97.8 F 97.7 F 97.8 F Pulse Rate 77 83 76 Respiratory Rate 16 16 16 Blood Pressure 110/69 111/57 L 118/73 Pulse Oximetry 94 L 94 L 96 11/03/17 23:57 11/04/17 04:00 11/04/17 08:00 Temperature 97.6 F 98.1 F 97.9 F Pulse Rate 78 55 L 68 Respiratory Rate 16 16 16 Blood Pressure 108/56 L 88/54 L 104/58 L Pulse Oximetry 96 99 95 Intake & Output 11/03/17 11/04/17 11/04/17 18:59 06:59 18:59 Intake Total 680 / 680 720 / 720 Output Total 1000 / 1000 500 / 500 Balance -320 / -320 220 / 220 Intake: Oral 680 / 680 720 / 720 Output: Urine 1000 / 1000 500 / 500 Other: # Voids 2 Date of Last Bowel Movement 10/30/17 10/30/17 Narrative: GENERAL: in NAD, SKIN: Warm and dry. HEAD: Atraumatic. Normocephalic. EYES: Pupils equal and round. No scleral icterus. ENT: No nasal bleeding or discharge. Mucous membranes pink and moist. NECK: Trachea midline. No JVD. CARDIOVASCULAR: Regular rate and rhythm. RESPIRATORY: No accessory muscle use. GASTROINTESTINAL: Abdomen soft, non-tender, nondistended. MUSCULOSKELETAL: Extremities without clubbing, cyanosis, or edema. No obvious deformities. NEUROLOGICAL: Awake and alert. No aphasia, oriented 3 fluent articulate, No facial asymmetry, OU 3-2mm, eomi, VFF, mild left hemiparesis with reduced fine finger movements left greater than right side, brisk lower semi-reflexes with right ankle clonus, reduce pinprick on the left side, gait not assessed secondary to fall risk PSYCHIATRIC: Appropriate mood and affect; insight and judgment normal. - Constitutional no acute distress - Routine HEENT Exam Head: Present: normocephalic Results - Labs CBC & Chem 7: 11/01/17 03:23 11/01/17 03:23 Review/Management - Diagnosis (1) Multiple sclerosis Code(s): G35 - Multiple sclerosis Status: Acute Current Visit: Yes (2) Abdominal pain Code(s): R10.9 - Unspecified abdominal pain Status: Acute Current Visit: Yes (3) Common bile duct dilatation Code(s): K83.8 - Other specified diseases of biliary tract Status: Acute Current Visit: Yes - Review/Management Plan: Possible MS exacerbation in a patient with chronic MS since 2002 with progression of disease Refractory/side effects to multiple MS medications Recommendations IV steroids 3 days which can be continued in rehab Neuroimaging Therapy Pain control Could consider trial of Gilenya for MS or research studies offered at our office when she is discharged this is discussed with the patient and appeared interested
[2017-11-04] MEDS ORDERED: MethylPREDNISolone Sod Suc Inj 1,000 MG in Sodium Chlor 0.9% Inj 100 ML IV.SIG ONE (11:47)
--- NOTE | 2017-11-04 12:05 | FL ---
EXAM DATE: 11/04/2017 11:59 AM EDT AGE/SEX: 47 years / Female INDICATIONS: Dysphagia. CLINICAL DATA: This is the patient's initial encounter. Patient reports that signs and symptoms have been present for 1 day and indicates a pain score of 0/10. MEDICAL/SURGICAL HISTORY: None. . Tubal ligation. COMPARISON: . FLUORO TIME: 1.3 IMAGE COUNT: 1 FINDINGS: A modified barium swallow was performed with speech pathology. Patient was given a variety of liquids to swallow. For a full detailed report, see report by the speech pathologist. CONCLUSION: No aspiration. Please see speech pathology report. Electronically signed by: Brandon Cardoso MD 11/04/2017 12:03 PM EDT
[2017-11-04] MEDS ORDERED: Gadobutrol PF 7.5 MMOL/7.5 ML Vial (for RAD) IV.SIG ONE (13:29)
--- NOTE | 2017-11-04 14:00 | MR ---
EXAM DATE: 11/04/2017 1:52 PM EDT AGE/SEX: 47 years / Female INDICATIONS: Gait disorder. CLINICAL DATA: This is the patient's initial encounter. Patient reports that signs and symptoms have been present for 4 - 6 days and indicates a pain score of 0/10. MEDICAL/SURGICAL HISTORY: Multiple sclerosis. Tubal ligation. [place] [facility] [place] W & W/O CON, 11/04/2017. . TECHNIQUE: Multiplanar, multisequence MRI of the thoracic spine was performed without and with 6cc m l Gadavist (gadobutrol) contrast as a single exam dose. FINDINGS: Vertebrae: Normal vertebral body height. Homogeneous marrow signal. Scattered nonacute Schmorl node s are identified. Alignment: Normal. Cord: Normal position and configuration. Post Contrast: No abnormal areas of enhancement are seen in the cord, dural or paraspinal regions. T1-T2: The thecal sac has a normal diameter. No evidence of disc bulge or protrusion. T2-T3: The thecal sac has a normal diameter. No evidence of disc bulge or protrusion. T3-T4: The thecal sac has a normal diameter. No evidence of disc bulge or protrusion. T4-T5: The thecal sac has a normal diameter. No evidence of disc bulge or protrusion. T5-T6: The thecal sac has a normal diameter. No evidence of disc bulge or protrusion. T6-T7: The thecal sac has a normal diameter. No evidence of disc bulge or protrusion. T7-T8: The thecal sac has a normal diameter. No evidence of disc bulge or protrusion. T8-T9: The thecal sac has a normal diameter. No evidence of disc bulge or protrusion. T9-T10: The thecal sac has a normal diameter. No evidence of disc bulge or protrusion. T10-T11: The thecal sac has a normal diameter. No evidence of disc bulge or protrusion. T11-T12: The thecal sac has a normal diameter. No evidence of disc bulge or protrusion. T12-L1: The thecal sac has a normal diameter. No evidence of disc bulge or protrusion. CONCLUSION: 1. Negative MR Thoracic Spine with and without contrast. Electronically signed by: Good Dockery MD 11/04/2017 1:59 PM EDT
--- NOTE | 2017-11-04 14:02 | MR ---
EXAM DATE: 11/04/2017 1:55 PM EDT AGE/SEX: 47 years / Female INDICATIONS: Gait disorder. CLINICAL DATA: This is the patient's initial encounter. Patient reports that signs and symptoms have been present for 4 - 6 days and indicates a pain score of 0/10. MEDICAL/SURGICAL HISTORY: Multiple sclerosis. Tubal ligation. [place] [facility] [place] W & W/O CON, 11/04/2017. . TECHNIQUE: Multiplanar, multisequence MRI examination of the cervical spine was performed without an d with 6cc ml Gadavist (gadobutrol) contrast as a single exam dose. FINDINGS: Vertebrae: Normal vertebral body height. Homogeneous marrow signal. Alignment: Normal. Mild anterior osteophyte formation. Mild diffuse disc desiccation and mild multil evel facet hypertrophy. Cord: Normal configuration and signal. Post Fossa: The cerebellar tonsils are normal in position. Post Contrast: No abnormal areas of enhancement are seen. C2-C3: The thecal sac has a normal configuration. There is no evidence of disc herniation or spinal canal stenosis. The neural foramina are patent bilaterally. C3-C4: The thecal sac has a normal configuration. There is no evidence of disc herniation or spinal canal stenosis. The neural foramina are patent bilaterally. C4-C5: The thecal sac has a normal configuration. There is no evidence of disc herniation or spinal canal stenosis. The neural foramina are patent bilaterally. C5-C6: The thecal sac has a normal configuration. There is no evidence of disc herniation or spinal canal stenosis. The neural foramina are patent bilaterally. Mild diffuse disc osteophyte complex. C6-C7: The thecal sac has a normal configuration. There is no evidence of disc herniation or spinal canal stenosis. The neural foramina are patent bilaterally. C7-T1: No epidural impressions seen. CONCLUSION: 1. Mild degenerative changes are seen without abnormal enhancement or cord abnormality. Electronically signed by: Good Dockery MD 11/04/2017 2:00 PM EDT
--- NOTE | 2017-11-04 14:04 | MR ---
EXAM DATE: 11/04/2017 1:57 PM EDT AGE/SEX: 47 years / Female INDICATIONS: Unsteady gait. CLINICAL DATA: This is the patient's initial encounter. Patient reports that signs and symptoms have been present for 4 - 6 days and indicates a pain score of 0/10. MEDICAL/SURGICAL HISTORY: Multiple sclerosis. Tubal ligation. [place] [facility] [place] [facility] [place] W & W/O CON, 8. . TECHNIQUE: Multiplanar, multisequence examination of the brain was performed without and with 6cc ml Gadavist (gadobutrol) contrast as a single exam dose. FINDINGS: Is made of benign tonsillar ectopia. Ventricles and cisterns are of normal size and configuration. Th ere is very minimal nonspecific FLAIR hyperintensity in the bilateral periventricular white matter. T here is no evidence for acute infarction on diffusion-weighted imaging. There is a probable sebaceous cyst of the midline scalp superiorly measuring 2.2 cm in size. There are no abnormal areas of enhanc ement identified in the brain following contrast administration. CONCLUSION: 1. Minimal nonspecific white matter disease otherwise unremarkable. Electronically signed by: Good Dockery MD 11/04/2017 2:03 PM EDT
[2017-11-04] MEDS: MethylPREDNISolone Sod Suc Inj 1,000 MG in Dextrose 5% in Water Inj 100 ML IV.SIG SCH ×2 (14:52)
[2017-11-04] MEDS: Polyethylene Glycol 3350 17 GM Packet PO SCH (16:28)
[2017-11-04] MEDS: ALPRAZolam 0.25 MG Tablet PO PRN (21:03)
[2017-11-05] MEDS ORDERED: Sodium Chlor 0.9% Inj 250 ML IV.SIG SCH (08:00)
[2017-11-05] MEDS: Heparin - SQ 10,000 UNITS/ML Vial SQ SCH ×2 (09:49→20:02)
[2017-11-05] MEDS: Metoclopramide 10 MG Tablet PO SCH ×4 (09:50→20:00)
[2017-11-05] MEDS: Senna/Docusate Sodium 8.6/50 MG Tablet PO SCH ×2 (09:50→20:01)
[2017-11-05] MEDS ORDERED: Lidocaine PF 1% Inj 5 ML Syringe OTHER ONE (10:00)
[2017-11-05] MEDS ORDERED: Esmolol Bolus Inj 100 MG/10 ML Vial IV.PUSH ONE (10:00)
[2017-11-05] MEDS: Polyethylene Glycol 3350 17 GM Packet PO SCH ×2 (10:04→20:02)
--- NOTE | 2017-11-05 10:36 | P.PNNEU ---
Subjective Subjective Comments: No cp, no dyspnea, no sargent, no vision loss. Tolerating steroids feels that it helps her Active Medications: Active Medications Acetaminophen (Tylenol) 650 mg PO Q4H PRN PRN Reason: Temp > 100.4, SARGENT, Pain 1-5 Hydrocodone Bitart/Acetaminophen ([place] 5/325) 1 tab PO Q6H PRN PRN Reason: PAIN SCALE 1 TO 5 Hydrocodone Bitart/Acetaminophen ([place] 10/325) 1 tab PO Q6H PRN PRN Reason: PAIN SCALE 6 TO 10 Last Admin: 11/05/17 10:04 Dose: 1 tab Al Hydroxide/Mg Hydroxide (Milk Of Magnesia Liq) 30 ml PO Q12H PRN PRN Reason: Mild Constipation Alprazolam (Xanax) 0.25 mg PO Q8H PRN PRN Reason: anxiety/panic attack Last Admin: 11/04/17 21:03 Dose: 0.25 mg Bisacodyl (Dulcolax Supp) 10 mg RECTAL DAILY PRN PRN Reason: SEVERE CONSITIPATION Cyclobenzaprine HCl (Flexeril) 5 mg PO Q8H PRN PRN Reason: SPASM Heparin Sodium (Porcine) (Heparin Inj) 5,000 units SQ Q12HR NAUN Last Admin: 11/05/17 09:49 Dose: 5,000 units Sodium Chloride (Ns Inj) 1,000 mls @ 0 mls/hr IV.SIG BOLUS NAUN Methylprednisolone Sodium (Succinate 1,000 mg/ Dextrose) 116 mls @ 116 mls/hr IV.SIG DAILY NAUN Stop: 11/06/17 09:59 Last Infusion: 11/04/17 15:58 Dose: Infused Sodium Chloride (Ns Inj) 250 mls @ 0 mls/hr IV.SIG BOLUS NAUN Last Admin: 11/05/17 09:46 Dose: 999 mls/hr Lactulose (Lactulose Liq) 30 ml PO DAILY PRN PRN Reason: SEVERE CONSITIPATION Lorazepam (Ativan Inj) 1 mg IV.PUSH ONCE PRN PRN Reason: claustrophobia Last Admin: 11/01/17 12:23 Dose: 1 mg Metoclopramide HCl (Reglan) 10 mg PO ACHS NAUN Stop: 11/11/17 07:59 Last Admin: 11/05/17 09:50 Dose: 10 mg Miscellaneous (Pill Splitter) 1 each OTHER UNSCH PRN PRN Reason: PILL SPLITTER Nitroglycerin (Nitrostat Sl) 0.4 mg SL Q5M PRN PRN Reason: CHEST PAIN Ondansetron HCl (Zofran Odt) 4 mg PO Q6H PRN PRN Reason: NAUSEA OR VOMITING Last Admin: 11/04/17 16:28 Dose: 4 mg Pantoprazole Sodium (Protonix) 40 mg PO DAILY [facility] Last Admin: 11/05/17 09:48 Dose: 40 mg Polyethylene Glycol (Miralax) 17 gm PO DAILY [facility] Last Admin: 11/05/17 10:04 Dose: 17 gm Senna/Docusate Sodium (Monica-Colace) 1 tab PO BID [facility] Last Admin: 11/05/17 09:50 Dose: 1 tab Sennosides (Senokot) 17.2 mg PO Q12H PRN PRN Reason: Moderate Constipation Allergies/Adverse Reactions: Allergies Allergy/AdvReac Type Severity Reaction Status Date / Time cefazolin Allergy Severe RASH Verified 11/04/17 21:13 ciprofloxacin Allergy Severe PANCREATITI Verified 11/04/17 21:13 S diclofenac Allergy Severe GI Verified 11/04/17 21:13 etodolac Allergy Severe GI Verified 11/04/17 21:13 flurbiprofen Allergy Severe GI Verified 11/04/17 21:13 ibuprofen Allergy Severe GI Verified 11/04/17 21:13 indomethacin Allergy Severe GI Verified 11/04/17 21:13 interferon beta-1a Allergy Severe ANAPHALACTI Verified 11/04/17 21:13 C Interferons Allergy Severe ANAPHALACTI Verified 11/04/17 21:13 C ketoprofen Allergy Severe GI Verified 11/04/17 21:13 ketorolac Allergy Severe GI Verified 11/04/17 21:13 latex Allergy Severe ANAPHALACTI Verified 11/04/17 21:13 C naproxen Allergy Severe GI Verified 11/04/17 21:13 oxaprozin Allergy Severe GI Verified 11/04/17 21:13 penicillin G Allergy Severe ANAPHALACTI Verified 11/04/17 21:13 C theophylline Allergy Severe TACHYCARDIA Verified 11/04/17 21:13 tramadol Allergy Severe GI Verified 11/04/17 21:13 acetaminophen Allergy Intermediate LIVER Verified 11/04/17 21:13 aspirin Allergy Intermediate RASH Verified 11/04/17 21:13 Fish Containing Products Allergy Intermediate RASH Verified 11/04/17 21:13 gabapentin Allergy Intermediate HIVES Verified 11/04/17 21:13 COPAXONE Allergy Severe ANAPHALACTI Uncoded 10/31/17 12:37 C *MDRO Multi-Drug Resistant AdvReac Unknown no reaction Uncoded 10/31/17 12:37 Organism Review of Systems All other systems reviewed negative except as stated in HPI Physical Exam Vital signs: Vital Signs 11/04/17 12:16 11/04/17 16:00 11/04/17 20:00 Temperature 97.6 F 97.7 F 97.6 F Pulse Rate 69 75 77 Respiratory Rate 16 16 16 Blood Pressure 108/59 L 106/54 L 110/56 L Pulse Oximetry 96 94 L 94 L 11/04/17 23:36 11/05/17 00:00 11/05/17 04:00 Temperature 97.5 F L 98.7 F Pulse Rate 79 85 51 L Respiratory Rate 16 16 Blood Pressure 117/55 L 105/59 L Pulse Oximetry 93 L 97 11/05/17 06:03 11/05/17 07:21 11/05/17 09:57 Temperature 97.5 F L Pulse Rate 65 67 76 Respiratory Rate 20 Blood Pressure 105/55 L 100/56 L 107/55 L Pulse Oximetry 95 Intake & Output 11/04/17 11/05/17 11/05/17 18:59 06:59 18:59 Intake Total 836 / 836 Output Total 500 / 500 Balance 336 / 336 Intake: IV 116 / 116 SoluMEDROL Inj 1,000 MG In D5W 116 / 116 Inj 100 ML @ 116 mls/hr IV.SIG DAILY [facility] Rx#:[id number] Oral 720 / 720 Output: Urine 500 / 500 Other: # Voids 2 Date of Last Bowel Movement 10/30/17 10/31/17 Narrative: GENERAL: in NAD, SKIN: Warm and dry. HEAD: Atraumatic. Normocephalic. EYES: Pupils equal and round. No scleral icterus. ENT: No nasal bleeding or discharge. Mucous membranes pink and moist. NECK: Trachea midline. No JVD. CARDIOVASCULAR: Regular rate and rhythm. RESPIRATORY: No accessory muscle use. GASTROINTESTINAL: Abdomen soft, non-tender, nondistended. MUSCULOSKELETAL: Extremities without clubbing, cyanosis, or edema. No obvious deformities. NEUROLOGICAL: Awake and alert. No aphasia, oriented 3 fluent articulate, No facial asymmetry, OU 3-2mm, eomi, VFF, mild left hemiparesis with reduced fine finger movements left greater than right side, brisk lower semi-reflexes with right ankle clonus, reduce pinprick on the left side, gait not assessed secondary to fall risk PSYCHIATRIC: Appropriate mood and affect; insight and judgment normal. - Constitutional no acute distress - Routine HEENT Exam Head: Present: normocephalic Review/Management - Diagnosis (1) Multiple sclerosis Code(s): G35 - Multiple sclerosis Status: Acute Current Visit: Yes (2) Abdominal pain Code(s): R10.9 - Unspecified abdominal pain Status: Acute Current Visit: Yes (3) Common bile duct dilatation Code(s): K83.8 - Other specified diseases of biliary tract Status: Acute Current Visit: Yes - Review/Management Plan: Possible MS exacerbation in a patient with chronic MS since 2002 with progression of disease Refractory/side effects to multiple MS medications MRI brain, spinal imaging reviewed. No cord lesion. MRI brain shows mild atrophy and very mild white matter changes. Patient states she has had optic neuritis in the past affecting her left eye as well as left-sided weakness and a positive LP. Recommendations IV steroids day 2 out of 3 Therapy Pain control Request the patient to contact her previous neurologist in office and try to get them to fax records during this hospitalization or outpatient to review her history of MS and workup that has been done. Discussed repeating an LP which she like to defer at this time next Could consider trial of Gilenya for MS or research studies offered at our office when she is discharged this is discussed with the patient and appeared interested
[2017-11-05] MEDS: MethylPREDNISolone Sod Suc Inj 1,000 MG in Dextrose 5% in Water Inj 100 ML IV.SIG SCH ×2 (12:51)
[2017-11-05] MEDS: ALPRAZolam 0.25 MG Tablet PO PRN (12:51)
--- NOTE | 2017-11-05 13:44 | P.PN ---
Subjective Interval history: Follow-up on patient with nausea, abdominal pain, gastroparesis. Patient seen and examined. Patient continues to have ongoing complaints of nausea however she has been able to tolerate a diet. No episodes of vomiting. She continues to have persistent chronic abdominal pain. She feels that her pain is not being well controlled. She feels that she is being punished because of her illnesses. I spent a great deal of time at the patient's bedside answering all of her questions and addressing all of her concerns. Explained to the patient that with very low blood pressures it is not safe to give her IV morphine pain medication. Patient informed me that her blood pressures are always low. Patient appeared satisfied at conclusion of our visit. Physical Exam Vital signs: Vital Signs 11/04/17 16:00 11/04/17 20:00 11/04/17 23:36 Temperature 97.7 F 97.6 F 97.5 F L Pulse Rate 75 77 79 Respiratory Rate 16 16 16 Blood Pressure 106/54 L 110/56 L 117/55 L Pulse Oximetry 94 L 94 L 93 L 11/05/17 00:00 11/05/17 04:00 11/05/17 06:03 Temperature 98.7 F Pulse Rate 85 51 L 65 Respiratory Rate 16 Blood Pressure 105/59 L 105/55 L Pulse Oximetry 97 11/05/17 07:21 11/05/17 09:57 11/05/17 11:55 Temperature 97.5 F L 97.4 F L Pulse Rate 67 76 73 Respiratory Rate 20 18 Blood Pressure 100/56 L 107/55 L 107/57 L Pulse Oximetry 95 98 Intake & Output 11/04/17 11/05/17 11/05/17 18:59 06:59 18:59 Intake Total 836 / 836 250 / 250 Output Total 500 / 500 Balance 336 / 336 250 / 250 Intake: IV 116 / 116 250 / 250 SoluMEDROL Inj 1,000 MG In D5W 116 / 116 Inj 100 ML @ 116 mls/hr IV.SIG DAILY NAUN Rx#:[id number] NS Inj 250 ML @ Wide Open IV. 250 / 250 SIG BOLUS NAUN Rx#:[id number] Oral 720 / 720 Output: Urine 500 / 500 Other: # Voids 2 Date of Last Bowel Movement 10/30/17 10/31/17 Narrative: GENERAL: Well-nourished, well-developed middle-aged female patient, INAD. Awake and alert. SKIN: Warm and dry. No rash. HEENT: Normocephalic. Atraumatic. Pupils equal and round. Mucous membranes pink and moist. Edentulous. CARDIOVASCULAR: Regular rate and rhythm. No murmur appreciated. RESPIRATORY: No accessory muscle use. Clear to auscultation. Breath sounds equal bilaterally. GASTROINTESTINAL: Abdomen soft, nondistended, mild diffuse tenderness to palpation. Normoactive bowel sounds x4. MUSCULOSKELETAL: No obvious deformities. Extremities without clubbing, cyanosis , or edema. NEUROLOGICAL: Awake and alert. No obvious cranial nerve deficits. Normal speech. PSYCHIATRIC: Appropriate mood and affect; insight and judgment normal. Results - Labs CBC & Chem 7: 11/01/17 03:23 11/01/17 03:23 - Imaging Impressions Cervical Spine MRI 11/04/17 11:53 CONCLUSION: 1. Mild degenerative changes are seen without abnormal enhancement or cord abnormality. Head MRI 11/04/17 11:53 CONCLUSION: 1. Minimal nonspecific white matter disease otherwise unremarkable. Thoracic Spine MRI 11/04/17 11:53 CONCLUSION: 1. Negative MR Thoracic Spine with and without contrast. - Procedures Date of procedure: 11/02/17 Pre-op diagnosis: Abdominal pain, dilated common bile duct, chronic pancreatitis , dysphagia Procedure: EGD with biopsy followed by endoscopic ultrasound IMPRESSION: Irregular Z line Small hiatal hernia Gastritis Dilated common bile duct PLAN: Await biopsies Continue with current supportive care Minimize pain meds and narcotics Consideration can be made for a GJ tube if symptoms persist Assessment and Plan - Plan 47-year-old female with past medical history of gastroparesis, cholecystectomy, CP, MS who initially came in to the hospital for complaints of abdominal pain but subsequently had chest pain after CT scan Intractable abdominal pain/nausea/vomiting: Suspect flare of gastroparesis. Patient has history of G J-tube and is in the process of having this replaced, reportedly appointment at [facility] Sunday CT abd/pelvis showed mild extrahepatic and central intra-hepatic biliary ductal dilatation of indeterminate etiology. Common bile duct measures 11 mm in greatest caliber. Correlation with alkaline phosphatase and bilirubin levels is suggested. This could be related to reservoir phenomenon status post cholecystectomy. She has mild hepatosplenomegaly. Fluid-filled mildly dilated stable loop of small bowel within the left upper quadrant which is unchanged compared to previous examination in August 2016 and may be related to altered postsurgical anatomy in this location. MRCP 11/01 showed Common bile duct is unremarkable. Status post cholecystectomy. No obstructing stone or stenosis identified. EGD 11/02 showed Irregular Z line, Small hiatal hernia, Gastritis, Dilated common bile duct -Continue Zofran for nausea -Continue on scheduled po Reglan tidac. -GI following, appreciate assistance. GI has signed off. -Continue on Protonix -[place] prn pain Possible MS exacerbation Patient has hx of chronic MS since 2002 MRI brain shows nonspecific white matter disease MRI cervical spine shows mild deg changes MR thoracic spine unremarkable -Neurology following, appreciate assistance. Started on IV steroids 3 days. May be continued at rehab. -continue with PT and OT -possible d/c to [facility] later today Chest pain: strongly suspect GI related, pain more epigastric region, however will rule out ACS Chest pain was fleeting lasting few seconds or less. Intermittent, pressure like mid epigastric towards left lower chest. Tender to palpation -Morphine was given, nitro SL PRN, Allergic to ASA -ACS ruled out with negative serial cardiac enzymes and EKG without acute ischemic changes. -Monitor on cardiac telemetry -No further chest pains, only epigastric/GI complaints Dysphagia -Evaluated by speech therapy, initially failed swallow evaluation. However, follow-up modified barium swallow unremarkable. -cleared for regular consistency diet with thin liquids, on mech soft due to being edentulous Constipation -no BM since 10/31. -continue Pericolace BID -increase Miralax to BID -give Dulcolax suppository -monitor for BM Anxiety: patient complaining of ongoing anxiety and panic attacks in the hospital, states she used to be on medications for this -will give xanax 0.25mg po q8h prn -explained to the patient that this medication will only be available while in the hospital and she will need to f/up with PCP Dr. Montero or psychiatrist to obtain treatment/prescriptions for her anxiety All other medical conditions stable, continue home medications as appropriate. DVT Prophylaxis: teds/SCDs; Heparin sq Code Status: FULL Discussed Condition With: patient, nursing staff, Dr. Tafoya Discharge Planning: Will need rehab at discharge, CM assisting with D/C planning. Awaiting insurance auth for possible [facility] placement.
[2017-11-05] MEDS ORDERED: Bisacodyl 10 MG Supp RECTAL ONE (13:45)
--- NOTE | 2017-11-05 14:47 | P.DS ---
Date of admission: 10/31/17 16:44 Primary care physician: No Primary Care Physician Attending physician on discharge: Adilia Lottie Anticipated date of discharge: 11/05/17 Brief History from admission: Patient is a 47-year-old female with past medical history of gastroparesis, cholecystectomy, CP, MS who initially came in to the hospital for complaints of abdominal pain. Patient states that she has abdominal pain with nausea since Sunday and she thought it was just her gastroparesis. States that the pain did not go away. She also reports having 4-5 stools that is dark, black today, with some loose stools. Patient states that she has suffered from gastroparesis for quite some time that she has a GJ tube placement. States that the GJ tube placement has migrated and came out last August and she [facility] but they are unable to place it back stating that she needs to go for surgical procedure for that. Patient follows GI doctor from [place] which she states that they have given up on her and referred her to [facility] for possible GJ placement. States that after that she is taking everything by mouth and feeling that she had aggravated her gastroparesis by doing so. States she has an appointment to see [facility] doctor on Sunday next week. During her visit patient went to CAT scan for a CT of the head since she also complained that last Sunday she had a fall and hit her head. CT of the head was negative. She also had a CAT scan of the abdomen and pelvis which showed mild extrahepatic and central intra-hepatic biliary ductal dilatation of indeterminate etiology. Common bile duct measures 11 mm in greatest caliber. Correlation with alkaline phosphatase and bilirubin levels is suggested. This could be related to reservoir phenomenon status post cholecystectomy. She has mild hepatosplenomegaly. Fluid-filled mildly dilated stable loop of small bowel within the left upper quadrant which is unchanged compared to previous examination in August 2016 and may be related to altered postsurgical anatomy in this location. Vital signs 78, 18, 137/68, 96% on room air. Patient states that when she was doing her CAT scan she complains of chest pain , started on the mid epigastric region radiates towards upper sternal area to her chest bilaterally. States chest pain was pressure-like, "like someone is sitting on my chest." This was associated by subjective feeling of hot flushing. Patient states that she had cardiac cath done years ago, unknown how long but states that they did not do any stent placements on her or further follow-up after cardiac cath. States it is a little bit better now. Reports she has bladder incontinence. Not bowel incontinence. Generalized weakness secondary to MS. Denies SOB/ dyspnea. Denies palpitations, headaches, dizziness. Denies fevers, chills, n/v. Denies dysuria. Patient update on day of discharge: Follow-up on patient with nausea, abdominal pain, gastroparesis. Patient seen and examined. Patient continues to have ongoing complaints of nausea however she has been able to tolerate a diet. No episodes of vomiting. She continues to have persistent chronic abdominal pain. She feels that her pain is not being well controlled. She feels that she is being punished because of her illnesses. I spent a great deal of time at the patient's bedside answering all of her questions and addressing all of her concerns. Explained to the patient that with very low blood pressures it is not safe to give her IV morphine pain medication. Patient informed me that her blood pressures are always low. Patient appeared satisfied at conclusion of our visit. DS: Diagnosis - Discharge Diagnosis (1) Gastroparesis Status: Chronic (2) Abdominal pain Status: Acute (3) Chest pain Status: Acute (4) Gastritis Status: Acute (5) Dysphagia Status: Chronic (6) Common bile duct dilatation Status: Acute (7) Multiple sclerosis Status: Acute DS: Summary Hospital Course: Patient admitted with intractable abdominal pain nausea and vomiting with suspected flare of gastroparesis. She also reported black stools but Hemoccult was negative in the ED. She also reported complaints of chest pain but ruled out for ACS with negative troponins and EKG showing no ischemic changes. Patient with history of previous GJ tube placement for dysphagia due to MS. She was started on IV antiemetics, Reglan and Protonix. CT the abdomen and pelvis revealed mild extrahepatic and central intra-hepatic biliary ductal dilatation of indeterminate etiology. Common bile duct measures 11 mm in greatest caliber. Patient was seen in consultation by gastroenterology. She underwent an MRCP which did not show any evidence of obstructing stone or stenosis. Patient underwent a EGD on 11/02 which revealed Irregular Z line, Small hiatal hernia, Gastritis, Dilated common bile duct. She underwent a modified barium swallow and was cleared for regular consistency diet with thin liquids. Although she continued to have persistent abdominal pain and ongoing nausea, she was able tolerate a diet. She was seen in consultation by neurology for possible MS flare and was started on IV steroids. Patient participated with physical therapy and Occupational Therapy who recommended rehab. Patient was transferred to [facility] for inpatient comprehensive rehabilitation. - Time Spent with Patient Total time spent providing and/or coordinating discharge services: Greater than 30 minutes - Quality: VTE Deep Vein Thrombosis/Pulmonary Embolism Present on Admission: No Exam Vital signs: Vital Signs 11/04/17 16:00 11/04/17 20:00 11/04/17 23:36 Temperature 97.7 F 97.6 F 97.5 F L Pulse Rate 75 77 79 Respiratory Rate 16 16 16 Blood Pressure 106/54 L 110/56 L 117/55 L Pulse Oximetry 94 L 94 L 93 L 11/05/17 00:00 11/05/17 04:00 11/05/17 06:03 Temperature 98.7 F Pulse Rate 85 51 L 65 Respiratory Rate 16 Blood Pressure 105/59 L 105/55 L Pulse Oximetry 97 11/05/17 07:21 11/05/17 09:57 11/05/17 11:55 Temperature 97.5 F L 97.4 F L Pulse Rate 67 76 73 Respiratory Rate 20 18 Blood Pressure 100/56 L 107/55 L 107/57 L Pulse Oximetry 95 98 Intake & Output 11/04/17 11/05/17 11/05/17 18:59 06:59 18:59 Intake Total 836 / 836 366 / 366 Output Total 500 / 500 Balance 336 / 336 366 / 366 Intake: IV 116 / 116 366 / 366 SoluMEDROL Inj 1,000 MG In D5W 116 / 116 116 / 116 Inj 100 ML @ 116 mls/hr IV.SIG DAILY [facility] Rx#:[id number] NS Inj 250 ML @ Wide Open IV. 250 / 250 SIG BOLUS NAUN Rx#:[id number] Oral 720 / 720 Output: Urine 500 / 500 Other: # Voids 2 Date of Last Bowel Movement 10/30/17 10/31/17 Narrative: GENERAL: Well-nourished, well-developed middle-aged female patient. Awake and alert. In no acute distress. SKIN: Warm and dry. No rash. HEENT: Normocephalic. Atraumatic. Pupils equal and round. Mucous membranes pink and moist. Edentulous. CARDIOVASCULAR: Regular rate and rhythm. No murmur appreciated. RESPIRATORY: No accessory muscle use. Clear to auscultation. Breath sounds equal bilaterally. GASTROINTESTINAL: Abdomen soft, nondistended, mild diffuse tenderness to palpation. Normoactive bowel sounds x4. MUSCULOSKELETAL: No obvious deformities. Extremities without clubbing, cyanosis , or edema. NEUROLOGICAL: Awake and alert. No obvious cranial nerve deficits. Normal speech. PSYCHIATRIC: Appropriate mood and affect; insight and judgment normal. Results Procedures completed during hospitalization: Date of procedure: 11/02/17 Pre-op diagnosis: Abdominal pain, dilated common bile duct, chronic pancreatitis , dysphagia Procedure: EGD with biopsy followed by endoscopic ultrasound IMPRESSION: Irregular Z line Small hiatal hernia Gastritis Dilated common bile duct PLAN: Await biopsies Continue with current supportive care Minimize pain meds and narcotics Consideration can be made for a GJ tube if symptoms persist Pending studies at discharge: Pending at discharge 11/02/17 11:15 Surgical [PTH] Routine - Impressions ITS Impressions Abdomen/Pelvis CT 10/31/17 11:35 CONCLUSION: 1. Mild extrahepatic and central intrahepatic biliary ductal dilatation of indeterminate etiology. Common bile duct measures 11 mm in greatest caliber. Correlation with alkaline phosphatase and bilirubin levels is suggested. This could be related to reservoir phenomenon status post cholecystectomy. 2. Mild hepatosplenomegaly. 3. Fluid filled mildly dilated stable loop of small bowel within left upper quadrant which is unchanged compared to previous examination in August 2016 and may be related to altered post-surgical anatomy in this location. Chest X-Ray 10/31/17 11:35 CONCLUSION: Negative examination. Head CT 10/31/17 12:37 CONCLUSION: 1. Negative CT Head non contrast. . Cholangiopancreatography MRI 11/01/17 10:06 CONCLUSION: 1. Common bile duct is unremarkable. Status post cholecystectomy. No obstructing stone or stenosis identified Videofluoroscopic Swallow 11/04/17 00:00 CONCLUSION: No aspiration. Please see speech pathology report. Cervical Spine MRI 11/04/17 11:53 CONCLUSION: 1. Mild degenerative changes are seen without abnormal enhancement or cord abnormality. Head MRI 11/04/17 11:53 CONCLUSION: 1. Minimal nonspecific white matter disease otherwise unremarkable. Thoracic Spine MRI 11/04/17 11:53 CONCLUSION: 1. Negative MR Thoracic Spine with and without contrast. Discharge Plan - Discharge Disposition Patient Disposition: [facility] Inpatient - Discharge Condition Condition: Stable - Discharge Order Discharge Orders: Discharge Order (Routine); Ordered 11/05/17 Ordered By: Tara Benson - Discharge Details Anticipated Discharge Date: 11/04/17 - Physicians Team Primary Care Provider: Primary Care Celine Huddleston Attending Provider: Adilia Tafoya Other Providers: Abdi Henderson MD ; [facility], ; [facility], ; Tyrone Mckeon MD
[2017-11-05] MEDS ORDERED: Morphine Sulfate Inj 2 MG/ML Vial IV.PUSH ONE (19:30)
--- NOTE | 2017-11-06 08:34 | P.PNNEU ---
Subjective Subjective Comments: No, no dyspnea, no sargent, no focal weakness, no vision loss. Complains of some epigastric sensation discomfort. RN notified. Also patient did have mild anxiety. Active Medications: Active Medications Acetaminophen (Tylenol) 650 mg PO Q4H PRN PRN Reason: Temp > 100.4, SARGENT, Pain 1-5 Hydrocodone Bitart/Acetaminophen ([place] 5/325) 1 tab PO Q6H PRN PRN Reason: PAIN SCALE 1 TO 5 Hydrocodone Bitart/Acetaminophen ([place] 10/325) 1 tab PO Q6H PRN PRN Reason: PAIN SCALE 6 TO 10 Last Admin: 11/06/17 06:03 Dose: 1 tab Al Hydroxide/Mg Hydroxide (Milk Of Magnesia Liq) 30 ml PO Q12H PRN PRN Reason: Mild Constipation Alprazolam (Xanax) 0.25 mg PO Q8H PRN PRN Reason: anxiety/panic attack Last Admin: 11/05/17 12:51 Dose: 0.25 mg Bisacodyl (Dulcolax Supp) 10 mg RECTAL DAILY PRN PRN Reason: SEVERE CONSITIPATION Cyclobenzaprine HCl (Flexeril) 5 mg PO Q8H PRN PRN Reason: SPASM Heparin Sodium (Porcine) (Heparin Inj) 5,000 units SQ Q12HR NAUN Last Admin: 11/05/17 20:02 Dose: 5,000 units Sodium Chloride (Ns Inj) 1,000 mls @ 0 mls/hr IV.SIG BOLUS NAUN Methylprednisolone Sodium (Succinate 1,000 mg/ Dextrose) 116 mls @ 116 mls/hr IV.SIG DAILY NAUN Stop: 11/06/17 09:59 Last Infusion: 11/05/17 13:54 Dose: Infused Sodium Chloride (Ns Inj) 250 mls @ 0 mls/hr IV.SIG BOLUS NAUN Last Infusion: 11/05/17 12:55 Dose: Infused Lactulose (Lactulose Liq) 30 ml PO DAILY PRN PRN Reason: SEVERE CONSITIPATION Lorazepam (Ativan Inj) 1 mg IV.PUSH ONCE PRN PRN Reason: claustrophobia Last Admin: 11/01/17 12:23 Dose: 1 mg Metoclopramide HCl (Reglan) 10 mg PO ACHS NAUN Stop: 11/11/17 07:59 Last Admin: 11/05/17 20:00 Dose: 10 mg Miscellaneous (Pill Splitter) 1 each OTHER UNSCH PRN PRN Reason: PILL SPLITTER Nitroglycerin (Nitrostat Sl) 0.4 mg SL Q5M PRN PRN Reason: CHEST PAIN Ondansetron HCl (Zofran Odt) 4 mg PO Q6H PRN PRN Reason: NAUSEA OR VOMITING Last Admin: 11/04/17 16:28 Dose: 4 mg Pantoprazole Sodium (Protonix) 40 mg PO DAILY [facility] Last Admin: 11/05/17 09:48 Dose: 40 mg Polyethylene Glycol (Miralax) 17 gm PO BID [facility] Last Admin: 11/05/17 20:02 Dose: Not Given Senna/Docusate Sodium (Monica-Colace) 1 tab PO BID [facility] Last Admin: 11/05/17 20:01 Dose: 1 tab Sennosides (Senokot) 17.2 mg PO Q12H PRN PRN Reason: Moderate Constipation Allergies/Adverse Reactions: Allergies Allergy/AdvReac Type Severity Reaction Status Date / Time cefazolin Allergy Severe RASH Verified 11/04/17 21:13 ciprofloxacin Allergy Severe PANCREATITI Verified 11/04/17 21:13 S diclofenac Allergy Severe GI Verified 11/04/17 21:13 etodolac Allergy Severe GI Verified 11/04/17 21:13 flurbiprofen Allergy Severe GI Verified 11/04/17 21:13 ibuprofen Allergy Severe GI Verified 11/04/17 21:13 indomethacin Allergy Severe GI Verified 11/04/17 21:13 interferon beta-1a Allergy Severe ANAPHALACTI Verified 11/04/17 21:13 C Interferons Allergy Severe ANAPHALACTI Verified 11/04/17 21:13 C ketoprofen Allergy Severe GI Verified 11/04/17 21:13 ketorolac Allergy Severe GI Verified 11/04/17 21:13 latex Allergy Severe ANAPHALACTI Verified 11/04/17 21:13 C naproxen Allergy Severe GI Verified 11/04/17 21:13 oxaprozin Allergy Severe GI Verified 11/04/17 21:13 penicillin G Allergy Severe ANAPHALACTI Verified 11/04/17 21:13 C theophylline Allergy Severe TACHYCARDIA Verified 11/04/17 21:13 tramadol Allergy Severe GI Verified 11/04/17 21:13 acetaminophen Allergy Intermediate LIVER Verified 11/04/17 21:13 aspirin Allergy Intermediate RASH Verified 11/04/17 21:13 Fish Containing Products Allergy Intermediate RASH Verified 11/04/17 21:13 gabapentin Allergy Intermediate HIVES Verified 11/04/17 21:13 COPAXONE Allergy Severe ANAPHALACTI Uncoded 10/31/17 12:37 C *MDRO Multi-Drug Resistant AdvReac Unknown no reaction Uncoded 10/31/17 12:37 Organism Review of Systems All other systems reviewed negative except as stated in HPI Physical Exam Vital signs: Vital Signs 11/05/17 09:57 11/05/17 11:55 11/05/17 15:47 Temperature 97.4 F L Pulse Rate 76 73 78 Respiratory Rate 18 Blood Pressure 107/55 L 107/57 L 122/63 Pulse Oximetry 98 11/05/17 15:55 11/05/17 19:44 11/05/17 23:09 Temperature 97.4 F L 98.2 F 98.7 F Pulse Rate 70 60 54 L Respiratory Rate 20 19 19 Blood Pressure 109/59 L 109/56 L 111/53 L Pulse Oximetry 95 100 11/06/17 04:00 11/06/17 07:20 11/06/17 08:00 Temperature 98.3 F 97.7 F Pulse Rate 50 L 53 L 52 L Respiratory Rate 17 18 Blood Pressure 102/58 L 115/62 Pulse Oximetry 97 96 Intake & Output 11/05/17 11/06/17 11/06/17 18:59 06:59 18:59 Intake Total 366 / 366 560 / 560 Output Total 150 / 150 Balance 366 / 366 410 / 410 Intake: IV 366 / 366 SoluMEDROL Inj 1,000 MG In D5W 116 / 116 Inj 100 ML @ 116 mls/hr IV.SIG DAILY NAUN Rx#:[id number] NS Inj 250 ML @ Wide Open IV. 250 / 250 SIG BOLUS NAUN Rx#:[id number] Oral 560 / 560 Output: Urine 150 / 150 Other: # Incontinent Voids 1 Date of Last Bowel Movement 10/30/17 11/05/17 Narrative: GENERAL: in NAD, SKIN: Warm and dry. HEAD: Atraumatic. Normocephalic. EYES: Pupils equal and round. No scleral icterus. ENT: No nasal bleeding or discharge. Mucous membranes pink and moist. NECK: Trachea midline. No JVD. CARDIOVASCULAR: Regular rate and rhythm. RESPIRATORY: No accessory muscle use. GASTROINTESTINAL: Abdomen soft, non-tender, nondistended. MUSCULOSKELETAL: Extremities without clubbing, cyanosis, or edema. No obvious deformities. NEUROLOGICAL: Awake and alert. No aphasia, oriented 3 fluent articulate, No facial asymmetry, OU 3-2mm, eomi, VFF, mild left hemiparesis with reduced fine finger movements left greater than right side, brisk lower semi-reflexes with right ankle clonus, reduce pinprick on the left side, gait not assessed secondary to fall risk PSYCHIATRIC: Appropriate mood and affect; insight and judgment normal. - Constitutional no acute distress - Routine HEENT Exam Head: Present: normocephalic Review/Management - Diagnosis (1) Multiple sclerosis Code(s): G35 - Multiple sclerosis Status: Acute Current Visit: Yes (2) Abdominal pain Code(s): R10.9 - Unspecified abdominal pain Status: Acute Current Visit: Yes (3) Common bile duct dilatation Code(s): K83.8 - Other specified diseases of biliary tract Status: Acute Current Visit: Yes - Review/Management Plan: Possible MS exacerbation in a patient with chronic MS since 2002 with progression of disease Refractory/side effects to multiple MS medications MRI brain, spinal imaging reviewed. No cord lesion. MRI brain shows mild atrophy and very mild white matter changes. Patient states she has had optic neuritis in the past affecting her left eye as well as left-sided weakness and a positive LP. Recommendations IV steroids day 3 out of 3 Discharge planning to rehab Can follow-up with us in the outpatient setting after discharge from rehab Request the patient to contact her previous neurologist and have them fax records during this hospitalization or outpatient to review her history of MS and workup that has been done. Discussed repeating an LP which she like to defer at this time next Could consider trial of Gilenya for MS or research studies offered at our office when she is discharged this is discussed with the patient and appeared interested
[2017-11-06] MEDS: Heparin - SQ 10,000 UNITS/ML Vial SQ SCH (09:04)
[2017-11-06] MEDS: Polyethylene Glycol 3350 17 GM Packet PO SCH (09:04)
[2017-11-06] MEDS: Senna/Docusate Sodium 8.6/50 MG Tablet PO SCH (09:04)
[2017-11-06 09:21] LABS: Creatine Kinase 21 U/L (26-192)
[2017-11-06] MEDS: Metoclopramide 10 MG Tablet PO SCH ×2 (10:50→11:41)
--- NOTE | 2017-11-06 10:54 | XR ---
EXAM DATE: 11/06/2017 10:03 AM EDT AGE/SEX: 47 years / Female INDICATIONS: Chest pain today. CLINICAL DATA: This is the patient's subsequent encounter. Patient reports that signs and symptoms h ave been present for 2 days and indicates a pain score of 4/10. MEDICAL/SURGICAL HISTORY: . Multiple sclerosis. Tubal ligation. . COMPARISON: . FINDINGS: A single AP view of the chest demonstrates the lungs to be symmetrically aerated without evidence of mass, infiltrate or effusion. The cardiomediastinal contours are unremarkable. Osseous structures a re intact. CONCLUSION: Negative examination. Electronically signed by: Ajay Cardoso MD 11/06/2017 10:09 AM EDT
[2017-11-06] MEDS: MethylPREDNISolone Sod Suc Inj 1,000 MG in Dextrose 5% in Water Inj 100 ML IV.SIG SCH ×2 (11:41)
[2017-11-06 11:54] VITALS: BP 114/81; PULSE 73; RESP 16; TEMP 98.1; O2SAT 99
--- NOTE | 2017-11-06 12:59 | P.PN ---
Subjective Interval history: Follow-up on patient with nausea, abdominal pain, gastroparesis. Patient seen and examined. Patient is complaining of sharp intermittent right-sided chest pain without any associated palpitations or shortness of breath. Patient has had similar complaints with negative workup. She denies any change in her chronic nausea. No vomiting. She denies any fever or chills. Physical Exam Vital signs: Vital Signs 11/05/17 15:47 11/05/17 15:55 11/05/17 19:44 Temperature 97.4 F L 98.2 F Pulse Rate 78 70 60 Respiratory Rate 20 19 Blood Pressure 122/63 109/59 L 109/56 L Pulse Oximetry 95 11/05/17 23:09 11/06/17 04:00 11/06/17 07:20 Temperature 98.7 F 98.3 F Pulse Rate 54 L 50 L 53 L Respiratory Rate 19 17 Blood Pressure 111/53 L 102/58 L Pulse Oximetry 100 97 11/06/17 08:00 11/06/17 11:48 Temperature 97.7 F 98.1 F Pulse Rate 52 L 73 Respiratory Rate 18 16 Blood Pressure 115/62 114/81 Pulse Oximetry 96 99 Intake & Output 11/05/17 11/06/17 11/06/17 18:59 06:59 18:59 Intake Total 366 / 366 560 / 560 116 / 116 Output Total 150 / 150 Balance 366 / 366 410 / 410 116 / 116 Intake: IV 366 / 366 116 / 116 SoluMEDROL Inj 1,000 MG In D5W 116 / 116 116 / 116 Inj 100 ML @ 116 mls/hr IV.SIG DAILY NAUN Rx#:[id number] NS Inj 250 ML @ Wide Open IV. 250 / 250 SIG BOLUS NAUN Rx#:[id number] Oral 560 / 560 Output: Urine 150 / 150 Other: # Incontinent Voids 1 Date of Last Bowel Movement 10/30/17 11/05/17 11/05/17 Narrative: GENERAL: Well-nourished, well-developed middle-aged female patient, INAD. Awake and alert. SKIN: Warm and dry. No rash. HEENT: Normocephalic. Atraumatic. Pupils equal and round. Mucous membranes pink and moist. Edentulous. CARDIOVASCULAR: Regular rate and rhythm. No murmur appreciated. +Tenderness elicited to palpation of right anterior chest wall. RESPIRATORY: No accessory muscle use. Clear to auscultation. Breath sounds equal bilaterally. GASTROINTESTINAL: Abdomen soft, nondistended, mild diffuse tenderness to palpation. Normoactive bowel sounds x4. MUSCULOSKELETAL: No obvious deformities. Extremities without clubbing, cyanosis , or edema. NEUROLOGICAL: Awake and alert. No obvious cranial nerve deficits. Normal speech. PSYCHIATRIC: Appropriate mood and affect; insight and judgment normal. Results - Labs CBC & Chem 7: 11/01/17 03:23 11/06/17 12:55 Laboratory Results - last 24 hr 11/06/17 08:25 Total Creatine Kinase 21 L Troponin I Less than 0.02 L - Imaging Impressions Chest X-Ray 11/06/17 00:00 CONCLUSION: Negative examination. - Procedures Date of procedure: 11/02/17 Pre-op diagnosis: Abdominal pain, dilated common bile duct, chronic pancreatitis , dysphagia Procedure: EGD with biopsy followed by endoscopic ultrasound IMPRESSION: Irregular Z line Small hiatal hernia Gastritis Dilated common bile duct PLAN: Await biopsies Continue with current supportive care Minimize pain meds and narcotics Consideration can be made for a GJ tube if symptoms persist Assessment and Plan - Assessment (1) Gastroparesis Code(s): K31.84 - Gastroparesis Status: Chronic (2) Abdominal pain Code(s): R10.9 - Unspecified abdominal pain Status: Acute (3) Chest pain Code(s): R07.9 - Chest pain, unspecified Status: Acute (4) Gastritis Code(s): K29.70 - Gastritis, unspecified, without bleeding Status: Acute (5) Dysphagia Code(s): R13.10 - Dysphagia, unspecified Status: Chronic (6) Common bile duct dilatation Code(s): K83.8 - Other specified diseases of biliary tract Status: Acute (7) Multiple sclerosis Code(s): G35 - Multiple sclerosis Status: Acute - Plan 47-year-old female with past medical history of gastroparesis, cholecystectomy, CP, MS who initially came in to the hospital for complaints of abdominal pain but subsequently had chest pain after CT scan 11/06 Patient discharged yesterday pending insurance auth for [facility]. complaining of right-sided chest pain. Similar to previous chest pain complaints. Reproducible on exam. Troponins negative 2. EKG unchanged from previous except for bradycardia. Hypokalemia with potassium 3.1. Oral repletion ordered. Repeat BMP in am. Check TSH level. Intractable abdominal pain/nausea/vomiting: Suspect flare of gastroparesis. Patient has history of G J-tube and is in the process of having this replaced, reportedly appointment at [facility] Sunday CT abd/pelvis showed mild extrahepatic and central intra-hepatic biliary ductal dilatation of indeterminate etiology. Common bile duct measures 11 mm in greatest caliber. Correlation with alkaline phosphatase and bilirubin levels is suggested. This could be related to reservoir phenomenon status post cholecystectomy. She has mild hepatosplenomegaly. Fluid-filled mildly dilated stable loop of small bowel within the left upper quadrant which is unchanged compared to previous examination in August 2016 and may be related to altered postsurgical anatomy in this location. MRCP 11/01 showed Common bile duct is unremarkable. Status post cholecystectomy. No obstructing stone or stenosis identified. EGD 11/02 showed Irregular Z line, Small hiatal hernia, Gastritis, Dilated common bile duct -Continue Zofran for nausea -Continue on scheduled po Reglan tidac. -GI following, appreciate assistance. GI has signed off. -Continue on Protonix -[place] prn pain Possible MS exacerbation Patient has hx of chronic MS since 2002 MRI brain shows nonspecific white matter disease MRI cervical spine shows mild deg changes MR thoracic spine unremarkable -Neurology following, appreciate assistance. Started on IV steroids 3 days. May be continued at rehab. -continue with PT and OT -awaiting insurance auth for transfer to [place] Chest pain: strongly suspect GI related, pain more epigastric region, however will rule out ACS Chest pain was fleeting lasting few seconds or less. Intermittent, pressure like mid epigastric towards left lower chest. Tender to palpation -Morphine was given, nitro SL PRN, Allergic to ASA -ACS ruled out with negative serial cardiac enzymes and EKG without acute ischemic changes. -Monitor on cardiac telemetry Dysphagia -Evaluated by speech therapy, initially failed swallow evaluation. However, follow-up modified barium swallow unremarkable. -cleared for regular consistency diet with thin liquids[facility] to being edentulous Constipation, resolved -continue Pericolace BID Anxiety: patient complaining of ongoing anxiety and panic attacks in the hospital, states she used to be on medications for this -will give xanax 0.25mg po q8h prn -explained to the patient that this medication will only be available while in the hospital and she will need to f/up with PCP Dr. Montero or psychiatrist to obtain treatment/prescriptions for her anxiety All other medical conditions stable, continue home medications as appropriate. DVT Prophylaxis: teds/SCDs; Heparin sq Discussed Condition With: patient, nursing staff, Dr. Tafoya Discharge Planning: Will need rehab at discharge, CM assisting with D/C planning. Awaiting insurance auth for possible [facility] placement. (5) Dysphagia Qualifiers: Dysphagia type: unspecified Qualified Code(s): R13.10 - Dysphagia, unspecified
[2017-11-06 13:54] LABS: Creatine Kinase 19 U/L (26-192)
[2017-11-06 14:20] LABS: Calcium 8.3 mg/dL (8.5-10.1); Carbon Dioxide 28.9 meq/L (21.0-32.0); Potassium 3.1 meq/L (3.5-5.1)
--- NOTE | 2017-11-06 17:47 | ECG ---
Date Performed: 11/06/2017 Time Performed: 08:16:33 PTAGE: 47 years EKG: SINUS BRADYCARDIA CONSIDER ANTEROSEPTAL MYOCARDIAL INFARCTION, AGE INDETERMINATE ABNORMAL E CG NO PREVIOUS TRACING DOCTOR: Desmond Gan Interpretating Date/Time 11/06/2017 18:02:42
== END 2017-11-06 14:39 ==
LOC: NEDA 10:54 → NEPE 10:54 → NEPGCP 18:12
PROVIDERS: ADMIT Family Medicine; ATTEND Family Medicine
PROC: PANENDO (2017-11-02 09:56)
DX: F32.9 Major depressive disorder, single episode, unspecified; F43.10 Post-traumatic stress disorder, unspecified; R10.13 Epigastric pain; R06.02 Shortness of breath; R16.2 Hepatomegaly with splenomegaly, not elsewhere classified; E87.6 Hypokalemia; F17.210 Nicotine dependence, cigarettes, uncomplicated; R42 Dizziness and giddiness; G35 Multiple sclerosis; F41.0 Panic disorder [episodic paroxysmal anxiety]; K86.1 Other chronic pancreatitis; Q05.9 Spina bifida, unspecified; G80.9 Cerebral palsy, unspecified; K44.9 Diaphragmatic hernia without obstruction or gangrene; K31.84 Gastroparesis; K83.8 Other specified diseases of biliary tract; M32.9 Systemic lupus erythematosus, unspecified; W19.XXXA Unspecified fall, initial encounter; K29.70 Gastritis, unspecified, without bleeding; R93.3 Abnormal findings on diagnostic imaging of other parts of digestive tract; R32 Unspecified urinary incontinence; K20.9 Esophagitis, unspecified